=== PATIENT | female | born 1995 | race Caucasian/White ===

== ENCOUNTER → 2016-11-19 | Outpatient (CLI) | payer BC ==
--- NOTE | 2016-11-20 03:59 | REP ---
Clinical: Enlarged thyroid gland by physical examination. Technique: Real time mulligan scale and color evaluation using linear and curved array transducers. Findings: The thyroid gland is diffusely heterogeneous and enlarged without discrete cystic or nodular lesion identified. Right lobe measures 7.2 x 2.7 x 2.9 cm. Left lobe measures 6.2 x 2.4 x 2.3 cm. Isthmus measures 9 mm in width. Impression: Heterogeneous enlarged thyroid gland. No discrete cystic or nodular lesion identified. Signed by Huey Sosa MD 11/20/2016 03:51 A
== END ==
LOC: M RAD 10:22
PROVIDERS: ATTEND Nurse Practitioner Family
DX: E07.9 Disorder of thyroid, unspecified (principal)

== ENCOUNTER → 2016-11-19 | Outpatient (CLI) | payer BC ==
[2016-11-19 12:26] LABS: ALBUMIN 3.2 GM/DL (3.2-5.2); ALBUMIN/GLOBULIN RATIO 0.89 (1.00-1.93); ALKALINE PHOSPHATASE 84 U/L (45-117); ALT/SGPT 18 U/L (12-78); ANION GAP 6 MEQ/L (8-16); AST/SGOT 13 U/L (15-37); BILIRUBIN,TOTAL 0.2 MG/DL (0.2-1.0); BLOOD UREA NITROGEN 12 MG/DL (7-18); CALCIUM LEVEL 8.7 MG/DL (8.5-10.1); CARBON DIOXIDE LEVEL 28 MEQ/L (21-32); CHLORIDE LEVEL 106 MEQ/L (98-107); GLOMERULAR FILTRATION RATE > 60.0 (>60); GLUCOSE, FASTING 77 MG/DL (70-105); POTASSIUM SERUM 3.8 MEQ/L (3.5-5.1); SODIUM LEVEL 140 MEQ/L (136-145); T UPTAKE 24 % (30-39); THYROXINE (T4) 12.8 UG/DL (4.5-12.0); TOTAL PROTEIN 6.8 GM/DL (6.4-8.2)
== END ==
LOC: M LAB 11:14
PROVIDERS: ATTEND Nurse Practitioner Family
DX: E03.9 Hypothyroidism, unspecified (principal); E55.9 Vitamin D deficiency, unspecified

== ENCOUNTER 2017-02-09 19:35 | Emergency (ER) | payer BC, MEDICAID, SELFPAY ==
[~2017-02-09] VITALS: Ht 167.6 cm; Wt 114.6 kg
[2017-02-09] MEDS ORDERED: BENA25CA4 PO (19:47)
[2017-02-09] MEDS ORDERED: FAMOTIDINE 20 MG TAB PO ONE (20:15)
[2017-02-09] MEDS ORDERED: ALBUTEROL 90 MCG/ACT 8GM HFA INHALER INH ONE (20:15)
[2017-02-09] MEDS ORDERED: predniSONE 20 MG TAB PO ONE (20:15)
[2017-02-09] MEDS ORDERED: PRED20TA PO (20:48)
[2017-02-09 20:55] VITALS: BP 141/75
[2017-04-11] MEDS ORDERED: ABIL20TA5 PO (15:45)
== END 2017-02-09 20:55 | disposition home or self-care (01) ==
LOC: M ED 19:35
DX: T62.8X1A Toxic effect of other specified noxious substances eaten as food, accidental (unintentional), initial encounter (principal); E66.9 Obesity, unspecified; F17.210 Nicotine dependence, cigarettes, uncomplicated; Y92.9 Unspecified place or not applicable; Y99.9 Unspecified external cause status; Y93.9 Activity, unspecified; Z91.018 Allergy to other foods

== ENCOUNTER 2017-04-04 10:05 | Inpatient (IN) | payer MEDICAID, SELFPAY ==
[~2017-04-04] VITALS: Ht 162.6 cm; Wt 115.0 kg
[~2017-04-04 10:05] MED LIST: BENA25CA4 PO; PRED20TA PO
[2017-04-04] MEDS ORDERED: SERT-138 PO (10:27)
[2017-04-04] MEDS ORDERED: LEVO125T4 PO (10:27)
[2017-04-04 11:50] LABS: METHADONE URINE NEGATIVE (NEGATIVE)
[2017-04-04 13:10] LABS: MEAN CORPUSCULAR HEMOGLOBIN 30.8 pg (27.0-33.0); MEAN CORPUSCULAR VOLUME 87.8 fl (80.0-96.0); WHITE BLOOD COUNT 8.1 K/mm3 (4.0-10.0)
[2017-04-04 13:12] LABS: CONTROL LINE HCG INT CTR LINE PRESENT
[2017-04-04 13:23] LABS: ALBUMIN 3.8 GM/DL (3.2-5.2); ALBUMIN/GLOBULIN RATIO 1.06 (1.00-1.93); ALKALINE PHOSPHATASE 107 U/L (45-117); ALT/SGPT 25 U/L (12-78); ANION GAP 6 MEQ/L (8-16); AST/SGOT 12 U/L (15-37); BILIRUBIN,DIRECT < 0.1 MG/DL (0.0-0.2); BILIRUBIN,TOTAL 0.3 MG/DL (0.2-1.0); BLOOD UREA NITROGEN 12 MG/DL (7-18); CALCIUM LEVEL 8.9 MG/DL (8.5-10.1); CARBON DIOXIDE LEVEL 26 MEQ/L (21-32); CHLORIDE LEVEL 107 MEQ/L (98-107); CREATININE FOR GFR 0.57 MG/DL (0.55-1.02); GLOMERULAR FILTRATION RATE > 60.0 (>60); GLUCOSE, FASTING 93 MG/DL (70-105); POTASSIUM SERUM 4.2 MEQ/L (3.5-5.1); SODIUM LEVEL 139 MEQ/L (136-145); TOTAL PROTEIN 7.4 GM/DL (6.4-8.2)
[2017-04-04] MEDS ORDERED: TYLE500T78 PO (14:57)
[2017-04-04] MEDS ORDERED: ANTIBIOTIC PO (14:57)
[2017-04-04] MEDS ORDERED: traZODone 50 MG TAB PO PRN (21:45)
[2017-04-04] MEDS ORDERED: MAALOX 30 ML SUSP *UDC PO PRN (21:45)
[2017-04-04] MEDS ORDERED: MOM 30ML SUSPENSION UDC PO PRN (21:45)
[2017-04-05] MEDS: LEVOTHYROXINE 125MCG TABLET (0.125MG) PO SCH (05:57)
[2017-04-05 06:00] VITALS: BP 127/69
--- NOTE | 2017-04-05 11:16 | HPEPDOC ---
[facility] Medical History & Physical Date of Admission Apr 05, 2017 History and Physical PCP: Simba Chavez NP ATTENDING: Dr. Cuong Miles HPI: 21 yo F admitted to [facility] for unspecified bipolar disorder, being medically examined today. No acute medical complaints today. Patient states she had been not taking her medications related to an insurance lapse. She has been off her levothyroxine. Patient states she has had cough. Productive of whitish sputum. No fevers or chills. Denies sore throat. Denies facial pain. Denies any fevers, chills, weakness, fatigue, SOLIS, CP, SOB, cough, palpitations, abdominal pain, N/V/D or changes in bowel or bladder habits. 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 History of Vicodin, Xanax, and Percocet in the past. IV Drug Use: Denies Tattoos done unprofessionally: 1 FAMHX: Mother: Alive, diabetes, depression, hypothyroid Father: Alive, hypertension, chronic pain Siblings: Alive, one sister with gestational diabetes. One brother with Tourette syndrome Children: None Unexpected deaths due to medical reasons: None. ROS: As noted in HPI, otherwise 11pt ROS of systems reviewed and remarkable only for LMP 03/15/17. PE: GEN: 21 yoF, appears stated age. Well-nourished, well developed. No acute distress. Alert and oriented x 3. Pleasant, interactive. HEENT: Normocephalic, atraumatic. Pupils are equal, round, and reactive to light. Extraocular movements are intact. No nystagmus appreciated. Sclera are nonicteric. Conjunctiva without injection. Nose midline. Nasal turbinates without bogginess. EACs both patent BL. TMs both visualized and mulligan with good cone of light, no bulging or erythema. No facial asymmetry. Moist mucous membranes. Dentition fair. Pharynx pink and moist, no cobblestoning. Neck supple , trachea midline. No lymphadenopathy or thyromegaly appreciated. CHEST: Regular rate and rhythm, +S1, +S2 LUNGS: Clear to auscultation bilaterally. Few rhonchi are noted. No wheezes, rales. Breathing appears symmetric and easy. Patient is speaking in full sentences. No accessory muscle use. ABD: Round, soft, non-tender, non-distended. +Bowel sounds throughout. No rebound or guarding. No costovertebral angle tenderness. EXT: Pulses 2+ bilaterally dorsalis pedis and radial. No lower extremity edema appreciated. SKIN: [place], dry, warm. Capillary refill <2sec. No rashes. NEURO: Alert and oriented x 3. Cranial nerves III-XII are intact. No focal deficits appreciated. EKG: Pending A&P: 21 yo F admitted to [facility] for unspecified bipolar disorder 1. Psych. Plan per Psychiatry. Obtain baseline EKG to assure the safety of psychiatric medications as they can prolong the QT interval. 2. Nicotine dependence. Patch available. 3. The thyroid. TSH is noted to be abnormal. Patient should resume levothyroxine 125 g by mouth daily. Recheck TFTs in approximately 4 weeks. 4. Follow up with PCP on discharge. 5. Substance use. Per psychiatry. 6. History of tattoo done unprofessionally. Patient declines HIV/hepatitis screening. 7. History of bronchitis. Patient states recurrent symptoms. Add amoxicillin 500 mg 3 times a day 7 days. Cepacol lozenges needed. Tylenol 650 mg every 6 hours as needed. 8. Staff member Isha HILL present throughout exam. Vital Signs Vital Signs Date Time Temp Pulse Resp B/P (MAP) Pulse Ox O2 Delivery O2 Flow Rate FiO2 04/05/17 06:00 98.3 88 18 127/69 (88) 04/04/17 14:37 98 Room Air Laboratory Data Labs 24H Laboratory Tests 2 04/04/17 12:43: Anion Gap 6L, Glomerular Filtration Rate > 60.0, Calcium Level 8.9, Aspartate Amino Transf (AST/SGOT) 12L, Alanine Aminotransferase (ALT/SGPT) 25, Alkaline Phosphatase 107, Total Bilirubin 0.3, Direct Bilirubin < 0.1, Total Protein 7.4 , Albumin 3.8, Albumin/Globulin Ratio 1.06, Thyroid Stimulating Hormone (TSH) 7.540H, Human Chorionic Gonadotropin, Qual NEGATIVE, Salicylates Level < 1.7L, Acetaminophen Level < 2.0L, Ethyl Alcohol Level < 0.003 CBC/BMP Laboratory Tests 04/04/17 12:43 Red Blood Count 4.37, Mean Corpuscular Volume 87.8, Mean Corpuscular Hemoglobin 30.8, Mean Corpuscular Hemoglobin Concent 35.0, Red Cell Distribution Width 13.0 Home Medications Scheduled Levothyroxine Sodium (Synthroid) 125 Mcg Tab, 125 MCG PO DAILY Sertraline HCl (Sertraline HCl) 100 Mg Tab, 100 MG PO DAILY [Antibiotic] , 1 TAB PO BID PATIENT IS TAKING BROTHER'S ANTIBIOTIC, UNSURE OF WHAT IT IS. Scheduled PRN Acetaminophen (Tylenol Extra Strength) 500 Mg Tab, 1,000 MG PO QID PRN for PAIN Allergies Coded Allergies: [place] (Verified Allergy, Unknown, 02/09/17) Vanna Molina Apr 05, 2017 11:16
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
[2017-04-05] MEDS ORDERED: ARIPiprazole MONOHYDRATE 400 MG INJ (ABILIFY)(J0401) IM ONE (12:00)
[2017-04-05] MEDS: busPIRone 5 MG TAB PO SCH ×2 (12:13→20:55)
[2017-04-05] MEDS: ACETAMINOPHEN TAB 650MG DOSE (2X325MG) PO PRN (12:19)
[2017-04-05] MEDS: AMOXICILLIN 500 MG CAP PO SCH ×2 (13:56→21:29)
[2017-04-05 18:33] VITALS: BP 106/60
[2017-04-05] MEDS: CEPACOL LOZENGE PO PRN ×2 (18:55→20:56)
[2017-04-05] MEDS: traZODone 100 MG TAB PO PRN (20:54)
[2017-04-05] MEDS: DIVALPROEX 250 MG TAB PO SCH (20:54)
[2017-04-05] MEDS: PRAZOSIN 1 MG CAP PO SCH (20:56)
[2017-04-05] MEDS ORDERED: SERTRALINE 100 MG TAB PO SCH (21:00)
[2017-04-06] MEDS: LEVOTHYROXINE 125MCG TABLET (0.125MG) PO SCH (06:10)
[2017-04-06] MEDS: AMOXICILLIN 500 MG CAP PO SCH ×3 (06:10→21:05)
[2017-04-06] MEDS: CEPACOL LOZENGE PO PRN ×4 (06:43→22:37)
[2017-04-06 07:15] VITALS: BP 114/55
--- NOTE | 2017-04-06 08:16 | ECGEPIP ---
Stationary ECG Study [facility] Test Date: 2017-04-05 Pat Name: ADRIANA MELGOZA Department: Room: [place] [address] Gender: F [employer] Supervisor: CHHAYA : 1995 Requested By: Vanna Molina Order Number: [id number] Reading MD: Michael Miranda Measurements Intervals [place] Rate: 79 P: 10 OR: 146 QRS: 28 QRSD: 90 T: 3 QT: 376 QTc: 431 Interpretive Statements Normal sinus rhythm Nonspecific T wave abnormality No significant change when compared to prior tracing of 05/07/2013 Electronically Signed On 04-06-2017 8:16:03 EDT by Michael Miranda
[2017-04-06] MEDS: busPIRone 5 MG TAB PO SCH ×2 (09:01→21:05)
--- NOTE | 2017-04-06 13:41 | IPN ---
DATE: 04/06/2017 The patient states she had wanted to kill herself. She is presently employed at [employer] and states she has "gender identity issues." In addition, it was the anniversary of of two friends and an aunt. The patient states she became emotional and had run of out of medications. She used to be on Zoloft, which helped her depression, but did not help her manic episodes. She also ran out of thyroid medications. She states on Zoloft she was sleepless and off of Zoloft she overslept. MENTAL STATUS EXAMINATION: No disturbance of speech. No thought disorders. No loose associations. No abnormal or psychotic thoughts. Judgment and insight are fair. She is fully oriented. Recent and remote memory intact. Attention and concentration intact. No disturbance of language. Full funded knowledge. Mood is euthymic and affect is congruent. She denies delusions or hallucinations, obsessions, compulsions, phobias. PLAN AT THIS TIME: Continue the patient's present treatment.
[2017-04-06 18:26] VITALS: BP 120/62
[2017-04-06] MEDS: PRAZOSIN 1 MG CAP PO SCH (21:04)
[2017-04-06] MEDS: DIVALPROEX 250 MG TAB PO SCH (21:05)
[2017-04-06] MEDS: traZODone 100 MG TAB PO PRN (22:37)
[2017-04-07] MEDS: LEVOTHYROXINE 125MCG TABLET (0.125MG) PO SCH (06:10)
[2017-04-07] MEDS: AMOXICILLIN 500 MG CAP PO SCH ×3 (06:11→21:58)
[2017-04-07 06:24] VITALS: BP 108/57
[2017-04-07] MEDS: CEPACOL LOZENGE PO PRN ×2 (09:02→22:00)
[2017-04-07] MEDS: busPIRone 5 MG TAB PO SCH ×2 (09:02→21:58)
--- NOTE | 2017-04-07 13:56 | IPN ---
DATE: 04/07/2017 Anastacia Whitney is in a good mood. She is concerned about missing her dogs and her snakes. She is presently waiting with her boyfriend to have a trailer renovated. She was begun on Depakote and BuSpar and prazosin here by Lizzy Pereira. She described how she woke up many times during the night in a panic. I requested her to see how tonight sleeping goes and defer the sleeping difficulties to Ms. Pereira. The patient is presently on Depakote 250 at night, trazodone 100 mg as needed at night for insomnia, prazosin 1 mg at night, BuSpar 15 mg twice a day. MENTAL STATUS EXAMINATION: Speech is normal. No disturbance of thought processes. No loose associations. No psychotic thoughts. Judgment and insight are intact. The patient is fully oriented. Recent and remote memory intact. Attention and concentration are intact. No disturbance of language. Full fund of knowledge. Mood is good. Affect is bright. DIAGNOSES: As per Randall: 1. Bipolar disorder. 2. Posttraumatic stress disorder (PTSD).
[2017-04-07 18:48] VITALS: BP 110/66
[2017-04-07] MEDS: DIVALPROEX 250 MG TAB PO SCH (21:58)
[2017-04-07] MEDS: traZODone 100 MG TAB PO PRN (21:58)
[2017-04-07] MEDS: PRAZOSIN 1 MG CAP PO SCH (21:59)
[2017-04-08] MEDS: LEVOTHYROXINE 125MCG TABLET (0.125MG) PO SCH (05:56)
[2017-04-08] MEDS: AMOXICILLIN 500 MG CAP PO SCH ×3 (05:56→21:49)
[2017-04-08 06:36] VITALS: BP 147/88
[2017-04-08] MEDS: busPIRone 5 MG TAB PO SCH ×2 (08:33→21:49)
--- NOTE | 2017-04-08 11:49 | MHIPNPDOC ---
[facility] Progress Note Progress Note DATE OF SERVICE: 04/08/17 HISTORY: day 5 of admission for bipolar disorder/out of medication VITAL SIGNS: See below. NEW TEST RESULTS: CURRENT MEDICATIONS: See below. MENTAL STATUS EXAMINATION: Patient is a 21-year old female, who is large framed, short dark hair, dressed in personal clothing, good eye contact, cooperative and pleasant Speech: Is clear, spontaneous Language skills are good Thought processes including: goal directed Thought content: appropriate. Abstract reasoning, and computation: good. Description of associations: good. Description of abnormal or psychotic thoughts: . Judgment: fair Insight: limited. Orientation: well oriented in all spheres Recent and remote memory: good. Attention span and concentration: good. Fund of knowledge: Full. Mood: euthymic. Affect: anxious. DIAGNOSES: 1. Bipolar I disorder, current episode depressed, recurrent, moderate with psychotic features. 2. PTSD 3. r/o borderline personality disorder ASSESSMENT:pt is tolerating Maintena injection with some injection site pain. Enc pt to only allow injection to gluteal area in the future. pt is reporting improved mood and less anxiety. She is optimistic about getting on medication and getting insurance back on track. Plans to remain compliant with treatment going forward. Hygiene is good, eating at meal times, no n/v/d/const. Denies akathesia or dystonia. MANAGEMENT PLAN: Family meeting held over weekend as mom has to attend training out of state. pt can return home and resume usual activities. Will plan on discharge tomorrow if follow up appts can be made TIME SPENT: 25 minutes. Vital Signs Vital Signs Date Time Temp Pulse Resp B/P (MAP) Pulse Ox O2 Delivery O2 Flow Rate FiO2 04/08/17 06:36 96.7 104 20 147/88 (107) 04/07/17 06:24 Room Air 04/04/17 14:37 98 Current Medications Current Medications Acetaminophen (Tylenol Tab) 650 mg Q6HP PRN PO HEADACHE or DISCOMFORT Last administered on 04/05/17t 12:19; Start 04/04/17 at 21:45; Stop 05/04/17 at 21: 44 Al Hydrox/Mg Hydrox/Simethicone (Mylanta) 30 ml Q4HP PRN PO HEARTBURN/ INDIGESTION; Start 04/04/17 at 21:45; Stop 05/04/17 at 21:44 Amoxicillin (Amoxicillin) 500 mg Q8H PO Last administered on 04/08/17 05:56; Start 04/05/17 at 14:00; Stop 04/12/17 at 06:01 Buspirone HCl (Buspar) 15 mg BID PO Last administered on 04/08/17 08:33; Start 04/05/17 at 09:00; Stop 05/05/17 at 08:59 Cetylpyridinium Chloride (Cepacol) 1 deneen Q2HP PRN PO cough Last administered on 04/07/17 22:00; Start 04/05/17 at 11:15; Stop 05/05/17 at 11:14 Divalproex Sodium (Depakote) 250 mg QHS PO Last administered on 04/07/17 21:58 ; Start 04/05/17 at 21:00; Stop 05/05/17 at 20:59 Home Med (Med Rec Complete!) ASDIRECTED XX ; Start 04/04/17 at 15:00; Stop at 15:00; Status DC Levothyroxine Sodium (Synthroid) 125 mcg DAILY@06 PO Last administered on 05:56; Start 04/05/17 at 06:00; Stop 05/05/17 at 05:59 Magnesium Hydroxide (Milk Of Magnesia) 30 ml DAILYPRN PRN PO CONSTIPATION; Start 04/04/17 at 21:45; Stop 05/04/17 at 21:44 Prazosin HCl (Minipress) 1 mg QHS PO Last administered on 04/07/17 21:59; Start 04/05/17 at 21:00; Stop 05/05/17 at 20:59 Sertraline HCl (Zoloft) 100 mg QHS PO ; Start 04/05/17 at 21:00; Stop 05/05/17 at 20:59; Status Cancel Trazodone HCl (Desyrel) 50 mg QHSP PRN PO INSOMNIA; Start 04/04/17 at 21:45; Stop 04/05/17 at 11:26; Status DC Trazodone HCl (Desyrel) 100 mg QHSP PRN PO INSOMNIA Last administered on 21:58; Start 04/05/17 at 11:30; Stop 05/05/17 at 11:29 Allergies Coded Allergies: [place] (Verified Allergy, Unknown, 02/09/17) Lizzy Pereira Apr 08, 2017 11:49
[2017-04-08] MEDS: ACETAMINOPHEN TAB 650MG DOSE (2X325MG) PO PRN ×2 (12:41→20:23)
[2017-04-08 18:00] VITALS: BP 139/65
[2017-04-08] MEDS: DIVALPROEX 250 MG TAB PO SCH (21:49)
[2017-04-08 21:51] VITALS: BP 133/84
[2017-04-08] MEDS: PRAZOSIN 1 MG CAP PO SCH (21:51)
[2017-04-09] MEDS: traZODone 100 MG TAB PO PRN
[2017-04-09] MEDS: AMOXICILLIN 500 MG CAP PO SCH (06:06)
[2017-04-09] MEDS: LEVOTHYROXINE 125MCG TABLET (0.125MG) PO SCH (06:06)
[2017-04-09 06:27] VITALS: BP 142/78
[2017-04-09] MEDS: busPIRone 5 MG TAB PO SCH (08:19)
[2017-04-09] MEDS ORDERED: ARIPiprazole 10 MG TAB PO SCH (09:00)
[2017-04-09] MEDS ORDERED: MINI1CAP PO (09:11)
[2017-04-09] MEDS ORDERED: DEPA1TAB3 PO (09:11)
[2017-04-09] MEDS ORDERED: BUSP5TA PO (09:11)
[2017-04-09] MEDS ORDERED: TRAZ10TA PO (09:11)
--- NOTE | 2017-04-09 14:17 | MHDSPDOC ---
[facility] Discharge Summary Discharge Summary DATE OF ADMISSION: Apr 04, 2017 at 14:18 DATE OF DISCHARGE: Apr 09, 2017 at 10:50 DISCHARGE DIAGNOSES: 1. bipolar I disorder, current episode mixed with psychotic features 2. PTSD 3. r/o borderline personality disorder. REASON FOR ADMISSION: SI with plan to overdose on mother's pain medication. no insurance and off her medications. CONSULTANTS INVOLVED: pharmacy, nursing, medicine, psychiatry, lab. TREATMENT AND PROGRESS ON THE UNIT : pt was open to suggestions to improve her mental health status. she readily admitted that impulsivity as been governing her life for several years. She will overspend, become rage-ful when angry and harm herself. Her insurance lapsed and she went off her medication. She was agreeable to a JOEL and was educated on risk and benefits of Abilify Maintena. She was started on the medication in the past -- that is oral abilify and did not find it helpful but took it without side effects. HOSPITAL COURSE: Injection of Maintena given on 04/05 in deltoid. Pt tolerated it well. Some injection site pain. pts mood improved rather quickly once involved with therapeutic milieu. She was visible on the unit and worked on improving herself. She stated she realized a lot of what she is already doing are positive coping skills for her she just was not aware that that is what they are, such as coloring, playing with her dogs, getting exercise. Pt 's nightmares will initially reduced with prazosin at 1 mg but the night prior to discharge they came back so she was discharged on 2 mg of prazosin and told to monitor and report to outpatient provider. Pt was also started on depakote which was increased day of discharge to 500 mg at hs. Level should e done next month to check if therapeutic. it is hoped that this at a low dose along with maintena will control impulsivity. pt ate well, slept well and attended to hygiene well. Family and BF visited and she felt well supported by the staff and peers. DISCHARGE ASSESSMENT: Pt aware Maintena needs 4 months to reach steady plasma state and cautioned to be patient with her progress. She continues to have static noise as auditory hallucinations so Abilify po will be kept on board for several weeks to see if sounds lessen. pt advised to inform outpatient staff to begin processing her prior auth for the Maintena soon so her injections aer not interrupted. Next injection due on 05/05. MENTAL STATUS EXAMINATION ON DISCHARGE: Patient is a 21-year old female, who is large framed, short dark hair, dressed in personal clothing, good eye contact, cooperative and pleasant Speech: Is clear, spontaneous Language skills are good Thought processes including: goal directed Thought content: appropriate. Abstract reasoning, and computation: good. Description of associations: good. Description of abnormal or psychotic thoughts: . Judgment: fair Insight: limited. Orientation: well oriented in all spheres Recent and remote memory: good. Attention span and concentration: good. Fund of knowledge: Full. Mood: euthymic. Affect: anxious. MEDICATIONS ON DISCHARGE: - Abilify for psychotic symptoms - Maintena for bipolar regulation. - Trazodone for sleep -Buspar for anxiety -Prazosin for nightmares -clonidine for anxiety -Depakote for impulse control PLAN/FOLLOWUP ARRANGEMENTS: [facility] for med mgt and therapy, return to work at 04/15. The amount of time spent in the coordination of care for this patient was approximately 30 minutes. Vital Signs/I&Os Vital Signs Date Time Temp Pulse Resp B/P (MAP) Pulse Ox O2 Delivery O2 Flow Rate FiO2 04/09/17 06:27 97.6 68 18 142/78 (99) 04/07/17 06:24 Room Air 04/04/17 14:37 98 Medications Scheduled (Depakote) 500 Mg Tab, 500 MG PO QHS for impulse control for 7 Days, #7 Buspirone HCl (Buspirone HCl) 5 Mg Tab, 15 MG PO BID for ANXIETY for 7 Days, #14 Levothyroxine Sodium (Synthroid) 125 Mcg Tab, 125 MCG PO DAILY, (Reported) Prazosin HCl (Minipress) 1 Mg Cap, 2 MG PO QHS for nightmares for 7 Days, #14 Scheduled PRN Trazodone HCl (Trazodone HCl) 100 Mg Tab, 100 MG PO QHSP PRN for INSOMNIA for 7 Days, #7 Allergies Coded Allergies: [place] (Verified Allergy, Unknown, 02/09/17) Lizzy Pereira Apr 09, 2017 14:17
[2017-04-09] MEDS ORDERED: PRAZOSIN 1 MG CAP PO SCH (21:00)
[2017-04-09] MEDS ORDERED: DIVALPROEX 500 MG TAB PO SCH (21:00)
[2017-04-11] MEDS ORDERED: ABIL20TA5 PO (15:45)
== END 2017-04-09 10:50 | disposition home or self-care (01) | DRG 753 ==
LOC: M ED 10:05 → M ED INP 14:18 → M ED 14:38 → M PSY 14:55
PROVIDERS: ADMIT Psychiatry & Neurology Psychiatry; ATTEND Psychiatry & Neurology Child & Adolescent Psychiatry
DX: F31.60 Bipolar disorder, current episode mixed, unspecified (principal); E03.9 Hypothyroidism, unspecified; F60.3 Borderline personality disorder; F43.10 Post-traumatic stress disorder, unspecified; Z91.010 Allergy to peanuts; F17.200 Nicotine dependence, unspecified, uncomplicated

== ENCOUNTER 2017-11-30 23:28 | Inpatient (IN) | payer MEDICAID, OTHER ==
[2017-12-01 00:20] LABS: HEMATOCRIT 39.5 % (36.0-47.0); MEAN CORPUSCULAR HGB CONC 32.9 g/dl (32.0-36.5); MEAN CORPUSCULAR VOLUME 91.2 fl (80.0-96.0); PLATELET COUNT, AUTOMATED 322 10^3/uL (150-450); RED BLOOD COUNT 4.33 10^6/uL (4.00-5.40); RED CELL DISTRIBUTION WIDTH 13.5 % (11.5-14.5); WHITE BLOOD COUNT 12.3 10^3/uL (4.0-10.0)
[2017-12-01 00:52] LABS: AMPHETAMINES LEVEL URINE NEGATIVE (NEGATIVE); BARBITURATES URINE NEGATIVE (NEGATIVE); BENZODIAZEPINES URINE NEGATIVE (NEGATIVE); CANNABINOIDS URINE POSITIVE (NEGATIVE); COCAINE METABOLITE URINE NEGATIVE (NEGATIVE); METHADONE URINE NEGATIVE (NEGATIVE); OPIATES URINE NEGATIVE (NEGATIVE); PHENCYCLIDINE URINE NEGATIVE (NEGATIVE)
[2017-12-01 00:56] LABS: ALBUMIN 3.9 GM/DL (3.2-5.2); ALBUMIN/GLOBULIN RATIO 1.08 (1.00-1.93); ALKALINE PHOSPHATASE 119 U/L (45-117); ALT/SGPT 27 U/L (12-78); ANION GAP 7 MEQ/L (8-16); AST/SGOT 17 U/L (7-37); BILIRUBIN,DIRECT < 0.1 MG/DL (0.0-0.2); BILIRUBIN,TOTAL 0.2 MG/DL (0.2-1.0); BLOOD UREA NITROGEN 17 MG/DL (7-18); CALCIUM LEVEL 8.8 MG/DL (8.5-10.1); CARBON DIOXIDE LEVEL 26 MEQ/L (21-32); CHLORIDE LEVEL 109 MEQ/L (98-107); CREATININE FOR GFR 0.77 MG/DL (0.55-1.30); ETHYL ALCOHOL (ETHANOL) < 0.003 % (0.000-0.010); GLOMERULAR FILTRATION RATE > 60.0 (>60); GLUCOSE, FASTING 97 MG/DL (70-100); POTASSIUM SERUM 3.7 MEQ/L (3.5-5.1); SALICYLATE LEVEL 2.6 MG/DL (5.0-30.0); SODIUM LEVEL 142 MEQ/L (136-145); TOTAL PROTEIN 7.5 GM/DL (6.4-8.2)
[2017-12-01 01:00] LABS: ACETAMINOPHEN LEVEL < 2.0 UG/ML (10.0-30.0)
[2017-12-01] MEDS ORDERED: MAALOX 30 ML SUSP *UDC PO (01:15)
[2017-12-01] MEDS ORDERED: PILL CRUSHER/CUTTER 1 EACH XX (02:00)
[2017-12-01] MEDS: PRAZOSIN 1 MG CAP PO (21:52)
[2017-12-02] MEDS: LEVOTHYROXINE 125MCG TABLET (0.125MG) PO (06:19)
[2017-12-02] MEDS: MOM 30ML SUSPENSION UDC PO (11:37)
[2017-12-02] MEDS: ACETAMINOPHEN TAB 650MG DOSE (2X325MG) PO (14:52)
[2017-12-02] MEDS: PALIPERIDONE 3 MG ER TAB (INVEGA) PO (22:01)
[2017-12-02] MEDS: traZODone 50 MG TAB PO (23:03)
[2017-12-03] MEDS: OLANZapine ORAL DISINTEGRATING TAB 5MG PO ×2 (00:22→10:20)
[2017-12-03] MEDS: ACETAMINOPHEN TAB 650MG DOSE (2X325MG) PO ×2 (00:24→08:42)
[2017-12-03] MEDS: LEVOTHYROXINE 125MCG TABLET (0.125MG) PO (06:19)
[2017-12-03] MEDS: PALIPERIDONE 3 MG ER TAB (INVEGA) PO (08:42)
[2017-12-03] MEDS: PALIPERIDONE 6 MG ER TAB (INVEGA) PO (21:03)
[2017-12-03] MEDS: traZODone 50 MG TAB PO (23:04)
[2017-12-04] MEDS: LEVOTHYROXINE 125MCG TABLET (0.125MG) PO (05:45)
[2017-12-04] MEDS: PALIPERIDONE 6 MG ER TAB (INVEGA) PO ×2 (08:36→21:18)
[2017-12-04] MEDS: OLANZapine ORAL DISINTEGRATING TAB 5MG PO (15:48)
[2017-12-04] MEDS: traZODone 50 MG TAB PO (23:03)
[2017-12-05] MEDS: LEVOTHYROXINE 125MCG TABLET (0.125MG) PO (05:48)
[2017-12-05] MEDS: PALIPERIDONE 6 MG ER TAB (INVEGA) PO (08:28)
[2017-12-05] MEDS: PALIPERIDONE PALMITATE 156 MG/1ML INJ(INVEGA SUSTENNA)(J2426) IM (13:40)
== END 2017-12-05 15:48 | disposition home or self-care (01) | DRG 882 ==
LOC: M ED 23:28 → M ED INP 12-01 01:10 → M PSY 12-01 01:43
DX: F43.10 Post-traumatic stress disorder, unspecified (principal); F33.2 Major depressive disorder, recurrent severe without psychotic features; F41.1 Generalized anxiety disorder; F60.3 Borderline personality disorder; F48.1 Depersonalization-derealization syndrome; Z91.010 Allergy to peanuts; E03.9 Hypothyroidism, unspecified; F17.210 Nicotine dependence, cigarettes, uncomplicated; Z62.810 Personal history of physical and sexual abuse in childhood

== ENCOUNTER → 2018-06-03 | Outpatient (CLI) | payer BC ==
[2018-06-03 10:10] LABS: HCG, SERUM QUANTITATIVE 4127 MIU/ML
== END ==
LOC: M LAB 08:19
DX: Z34.81 Encounter for supervision of other normal pregnancy, first trimester (principal)
CPT/HCPCS: 84702

== ENCOUNTER → 2018-06-25 | Outpatient (CLI) | payer BC ==
[2018-06-25 19:23] LABS: BASO % 0.5 % (0.0-1.0); EOS # 0.1 10^3/uL (0.0-0.50); HEMATOCRIT 37.6 % (36.0-47.0); HEMOGLOBIN 12.4 g/dl (12.0-15.5); IMMATURE GRANULOCYTE % 0.3 % (0-3.0); LYMPH # 1.7 10^3/uL (1.5-6.5); LYMPH % 26.6 % (24.0-44.0); MONO # 0.5 10^3/uL (0.0-0.8); MONO % 7.2 % (0.0-5.0); NEUTROPHILS # 4.1 10^3/uL (1.8-7.7); NEUTROPHILS % 64.4 % (36.0-66.0); PLATELET COUNT, AUTOMATED 256 10^3/uL (150-450); RED CELL DISTRIBUTION WIDTH 12.5 % (11.5-14.5); WHITE BLOOD COUNT 6.3 10^3/uL (4.0-10.0)
[2018-06-25 20:24] LABS: CHLAMYDIA DNA AMPLIFICATION NEGATIVE (NEGATIVE); GC DNA AMPLIFICATION NEGATIVE (NEGATIVE)
[2018-06-27 12:47] LABS: HEPATITIS C VIRUS ABY INDEX 0.1 INDEX (<0.8)
[2018-06-27 12:47] LABS: HBsAg Prenatal NEGATIVE (NEGATIVE); HIV 1&2 SCREEN CENTAUR NEGATIVE (NEGATIVE); RUBELLA IgG QUALITATIVE IMMUNE (IMMUNE)
== END ==
LOC: M SMT 14:23
DX: Z36.89 Encounter for other specified antenatal screening (principal)
CPT/HCPCS: 86762

== ENCOUNTER → 2018-07-23 | Outpatient (CLI) | payer BC ==
[~2018-07-23] MED LIST changes: +ABIL20TA5 PO; +ANTIBIOTIC PO; +BUSP5TA PO; +DEPA1TAB3 PO; +INVE156I IM; +LEVO125T4 PO; +MINI1CAP PO; +PALI1TAB3 PO; +SERT-138 PO; +TRAZ10TA PO; +TRAZO50TA PO; +TYLE500T78 PO
== END ==
LOC: M SMT 15:44
PROVIDERS: ATTEND Advanced Practice Midwife
DX: Z34.81 Encounter for supervision of other normal pregnancy, first trimester (principal)

== ENCOUNTER → 2018-07-30 | Outpatient (REF) | payer BC | LOC: M LAB REF 16:13 | PROVIDERS: ATTEND Physician Assistant | DX: J09.X2 Influenza due to identified novel influenza A virus with other respiratory manifestations (principal) ==

== ENCOUNTER → 2018-08-27 | Outpatient (CLI) | payer MEDICAID ==
[2018-08-27 18:34] LABS: FREE T4 1.2 NG/DL (0.76-1.46); THYROID STIMULATING HORMONE 3.16 uIU/ML (0.358-3.740)
== END ==
LOC: M SMT 10:07
PROVIDERS: ATTEND Advanced Practice Midwife
DX: Z34.82 Encounter for supervision of other normal pregnancy, second trimester (principal); Z36.89 Encounter for other specified antenatal screening

== ENCOUNTER → 2018-09-15 | Outpatient (CLI) | payer BC ==
--- NOTE | 2018-09-15 19:48 | REP ---
Clinical: Anatomical evaluation. Comparison: None . Findings: Examination demonstrates a single live intrauterine in cephalic presentation. motion is identified by technologist. Placenta is noted posterior and grade grade zero without evidence for placenta previa or abruption. Amniotic fluid volume is normal. Cervix measures 3.7 cm in length and appears closed. No evidence for nuchal cord. Gestational age by LMP 20 weeks 3 days with GILBERT 01/30/2019 . Gestational age by current measurements 20 weeks 2 days with GILBERT 01/31/2019 . FHR equals 169 beats per minute. BPD 4.8 cm 20 weeks 4 days HC 18.1 cm 20 weeks 4-day AC 15.2 cm 20 weeks 3 days FL 3.4 cm 20 weeks 5 days HL 3.3 cm 21 weeks 1 day HC/AC ratio 1.19 Estimated weight 360 grams ( 51st percentile). Anatomical assessment demonstrates normal structures including cranium, choroid plexus, cavum, cerebellum/posterior fossa, facial features, lungs, four-chamber heart/ventricular outflow tracts, diaphragm, stomach, cord insertion/three-vessel cord, kidneys/bladder, spine, and extremities. Impression: Single live intrauterine in cephalic presentation demonstrating appropriate interval growth. 2. Anatomical assessment is complete and normal. No gross abnormalities are identified. Electronically Signed by Huey Sosa MD 09/15/2018 07:39 P
== END ==
LOC: M RAD 11:18
PROVIDERS: ATTEND Advanced Practice Midwife
DX: Z34.82 Encounter for supervision of other normal pregnancy, second trimester (principal); Z3A.20 20 weeks gestation of pregnancy

== ENCOUNTER → 2018-10-28 | Outpatient (CLI) | payer MEDICAID ==
[2018-10-28 20:01] LABS: THYROID STIMULATING HORMONE 0.689 uIU/ML (0.358-3.740)
[2018-10-28 20:37] LABS: HEMOGLOBIN 11.3 g/dl (12.0-15.5); MEAN CORPUSCULAR HEMOGLOBIN 31.7 pg (27.0-33.0); MEAN CORPUSCULAR HGB CONC 33.2 g/dl (32.0-36.5); MEAN CORPUSCULAR VOLUME 95.5 fl (80.0-96.0); PLATELET COUNT, AUTOMATED 278 10^3/uL (150-450); RED BLOOD COUNT 3.56 10^6/uL (4.00-5.40); WHITE BLOOD COUNT 10.3 10^3/uL (4.0-10.0)
== END ==
LOC: M LABDRWAD 16:44
PROVIDERS: ATTEND Advanced Practice Midwife
DX: O99.282 Endocrine, nutritional and metabolic diseases complicating pregnancy, second trimester (principal); Z3A.00 Weeks of gestation of pregnancy not specified

== ENCOUNTER → 2018-11-14 | Outpatient (CLI) | payer OTHER | LOC: M LAB 07:41 | PROVIDERS: ATTEND Advanced Practice Midwife | DX: O99.282 Endocrine, nutritional and metabolic diseases complicating pregnancy, second trimester (principal); Z3A.00 Weeks of gestation of pregnancy not specified ==

== ENCOUNTER 2019-02-03 04:54 | Inpatient (IN) | payer OTHER ==
[~2019-02-03] VITALS: Ht 162.6 cm; Wt 114.0 kg
[2019-02-03] VITALS (26 sets, daily range): BP systolic 90–143; BP diastolic 50–90
[~2019-02-03 04:54] MED LIST changes: +TRAZ1TAB10 PO; -TRAZO50TA PO
[2019-02-03] MEDS ORDERED: LACTATED RINGER'S 1000 ML IV STA (06:25)
[2019-02-03] MEDS ORDERED: PENICILLIN G POTASSIUM IV 5 MU in D5W MINI-BAG PLUS 100 ML IV STA (06:25)
[2019-02-03 06:41] LABS: HEMATOCRIT 36.9 % (36.0-47.0); HEMOGLOBIN 12.6 g/dl (12.0-15.5); MEAN CORPUSCULAR HGB CONC 34.1 g/dl (32.0-36.5); MEAN CORPUSCULAR VOLUME 96.6 fl (80.0-96.0); PLATELET COUNT, AUTOMATED 191 10^3/uL (150-450); RED BLOOD COUNT 3.82 10^6/uL (4.00-5.40); WHITE BLOOD COUNT 13.2 10^3/uL (4.0-10.0)
[2019-02-03] MEDS ORDERED: FENTANYL 2MCG/ML ROPIVACAINE 0.2% IN 0.9% NACL 100ML IVBAG As Ordered ONE (08:15)
[2019-02-03] MEDS ORDERED: ONDANSETRON 4MG/2ML VIAL (J2405) As Ordered ONE (08:36)
[2019-02-03] MEDS ORDERED: REFRIGERATOR IV KEYS XX PRN (09:30)
[2019-02-03] MEDS ORDERED: EPIDURAL COMMENT XX SCH (09:30)
[2019-02-03] MEDS ORDERED: NALOXONE INJ 0.4 MG/1 ML VIAL (J2310) IV PRN (09:30)
[2019-02-03] MEDS ORDERED: EPIDURAL/PCA KEYS XX PRN (09:30)
[2019-02-03] MEDS ORDERED: diphenhydrAMINE INJ 50MG/ML VIAL (J1200) IV PRN (09:30)
[2019-02-03] MEDS ORDERED: ePHEDrine SULFATE 25 MG/5 ML(5MG/ML) SYRINGE IV PRN (09:30)
[2019-02-03] MEDS ORDERED: FENTANYL/ROPIVACAINE/NACL BAG 100 ML EPIDURAL SCH (09:30)
[2019-02-03] MEDS ORDERED: ONDANSETRON 4MG/2ML VIAL (J2405) IV PRN (09:30)
[2019-02-03] MEDS ORDERED: CALCIUM CARBONATE 500 MG CHEW U/D PO PRN (11:15)
[2019-02-03] MEDS ORDERED: PRENTAB9 PO (11:25)
[2019-02-03] MEDS ORDERED: LEVO112T2 PO (11:25)
[2019-02-03] MEDS ORDERED: LR 1,000 ML IV SCH (11:30)
[2019-02-03] MEDS ORDERED: PENICILLIN G POTASSIUM IV 2.5 MU in APPROPRIATE DILUENT 1 EA IV SCH (12:00)
--- NOTE | 2019-02-03 12:42 | HPE ---
DATE OF ADMISSION: 02/03/2019 REASON FOR ADMISSION: Labor. HISTORY OF PRESENT ILLNESS: Ms. Whitney is a 23-year-old 1 who presents at 40 weeks 4 days estimated gestational age by first trimester ultrasound with complaints of contractions. Her contractions increased in frequency and intensity. She denies any vaginal bleeding or leakage of fluid. Her course has been unremarkable. She initiated care in her first trimester and has been appropriate throughout. PAST MEDICAL HISTORY: 1. History of hypothyroidism. 2. Bipolar disorder. PAST SURGICAL HISTORY: She has had tonsillectomy, adenoidectomy. MEDICATIONS: Includes: - vitamins daily - levothyroxine ALLERGIES: LATEX. OBSTETRICAL HISTORY: She is 1. SOCIAL HISTORY: Denies any alcohol, tobacco or drug use during . She is a former smoker. PHYSICAL EXAMINATION: VITAL SIGNS: Stable. She is afebrile. GENERAL APPEARANCE: Well appearing, no acute distress. She has category 1 heart rate tracing with contractions on tocometer. Lungs are clear to auscultation bilaterally. Cardiovascular: Heart regular rate and rhythm. Abdomen is gravid, nontender. Estimated weight 3700 grams. Cervical exam: She was 3-4 cm dilated, 90% effaced, -2 station. LABS: Blood type is A positive. Antibody screen is negative. Rubella is immune. RPR is nonreactive. Chlamydia and gonorrhea screens were negative. Hepatitis surface antigen was negative. HIV was negative. Rubella is immune. RPR is nonreactive. She had an elevated 1-hour Glucola with a normal 3-hour glucose tolerance test. She is Group B Streptococcus (GBS) positive. ASSESSMENT: 1. Ms. Whitney is a 23-year-old 1 at 40 weeks 3 days estimated gestational age here in active labor. 2. Reassuring status. 3. GBS positive. PLAN: 1. Admit to Labor delivery CBC, RPR, type and screen. 2. Antibiotics for GBS prophylaxis. 3. Patient is a good candidate for epidural. 4. Anticipate spontaneous vaginal delivery.
[2019-02-03] MEDS ORDERED: OXYTOCIN 30 UNITS IN 0.9% NaCl 500ML IV BAG (J2590) As Ordered ONE (13:05)
[2019-02-03] MEDS ORDERED: OXYTOCIN DRIP 30 UNITS in APPROPRIATE DILUENT 1 EA IV SCH (13:56)
[2019-02-03] MEDS ORDERED: MOM 30ML SUSPENSION UDC PO PRN (14:00)
[2019-02-03] MEDS ORDERED: IBUPROFEN 800 MG TAB PO PRN (14:00)
[2019-02-03] MEDS ORDERED: RHOGAM 300 MCG (1500 IU) INJ (J2790) IM SCH (14:00)
[2019-02-03] MEDS ORDERED: IBUPROFEN 600 MG TAB PO PRN (14:00)
[2019-02-03] MEDS ORDERED: ACETAMINOPHEN 500 MG TAB PO PRN (14:00)
[2019-02-03] MEDS ORDERED: DIBUCAINE 1% OINTMENT 30GM TOP PRN (14:00)
[2019-02-03] MEDS ORDERED: ACETAMINOPHEN TAB 650MG DOSE (2X325MG) PO PRN (14:00)
[2019-02-03] MEDS ORDERED: METHYLERGONOVINE MALEATE 0.2 MG TAB PO PRN (14:00)
[2019-02-03] MEDS ORDERED: DOCUSATE SODIUM 100 MG CAP PO PRN (14:00)
[2019-02-03] MEDS ORDERED: MEASLES,MUMPS,RUBELLA VACCINE INJ (MMR-II) (90707) SC SCH (14:00)
--- NOTE | 2019-02-03 14:18 | DN ---
DATE OF DELIVERY: 02/03/2019 TIME OF : 1334 hours GENDER: Male SCORES: 8 and 9. WEIGHT: 3450 grams or 7 pounds 10 ounces. ANESTHESIA: Epidural. LACERATIONS: None. ESTIMATED BLOOD LOSS: 400 mL. COUNTS: Five laparotomy sponges were accounted for prior to after delivery. DELIVERY NOTE: On February 03, 2019 at 1334 hours, Ms. Whitney, a 23-year-old 1, now para 1, had a spontaneous vaginal delivery of a liveborn male infant, scores 8 ad 9, weight was 3450 grams or 7 pounds 10 ounces. Head was delivered OA over intact perineum. There was a nuchal cord which was manually reduced followed by delivery of shoulders and corpus. Infant was handed to mom with a good cry. Cord was clamped times two and was cut by support person under my direction. Placenta was then drained and delivered grossly intact. A premixed bag of 500 mL of normal saline with 30 units of Pitocin was bolused along with uterine massage until the uterus was firm. On inspection the cervix, vagina and perineum was grossly intact and hemostatic. Mom and baby recovering in stable condition.
[2019-02-04 06:00] VITALS: BP 121/60
--- NOTE | 2019-02-04 07:26 | NUR ---
PPD#1 S: Doing well w/o complaints. + voids, + ambulation. O: vss, AF gen: well appearing abd: nttp, FF ext: neg calf tenderness A/P: PPD#1 s/p - recovering in stable condition -cont routine care -d/c plans for tomorrow Ingrid Vallecillo MD
[2019-02-04] MEDS: PRENATAL VITAMINS CHEWABLE TABLET PO SCH (08:15)
[2019-02-04] MEDS: LEVOTHYROXINE 112MCG TABLET (0.112MG) PO SCH (08:38)
[2019-02-04 18:00] VITALS: BP 103/55
[2019-02-05] MEDS: LEVOTHYROXINE 112MCG TABLET (0.112MG) PO SCH (04:53)
[2019-02-05 05:51] VITALS: BP 119/65
[2019-02-05] MEDS ORDERED: medroxyPROGESTERone ACET IM SUSP 150 MG/ML VIAL (J1050) IM ONE (09:00)
[2019-02-05] MEDS: PRENATAL VITAMINS CHEWABLE TABLET PO SCH (09:02)
== END 2019-02-05 13:20 | disposition home or self-care (01) | DRG 560 ==
LOC: M LDO 04:54 → M LDI 05:49 → M OBS 16:12
PROVIDERS: ADMIT Advanced Practice Midwife; ATTEND Obstetrics & Gynecology
PROC: 10E0XZZ Delivery of Products of Conception, External Approach (ICD-10-PCS; principal; 2019-02-03)
DX: O48.0 Post-term pregnancy (principal); O99.824 Streptococcus B carrier state complicating childbirth; Z3A.40 40 weeks gestation of pregnancy; Z37.0 Single live birth; O69.81X0 Labor and delivery complicated by cord around neck, without compression, not applicable or unspecified

== ENCOUNTER → 2019-04-16 | Outpatient (REF) | payer OTHER ==
[~2019-04-16] MED LIST changes: +LEVO112T2 PO; +PRENTAB9 PO
== END ==
LOC: M LAB REF 15:52
PROVIDERS: ATTEND Surgery
DX: D48.5 Neoplasm of uncertain behavior of skin (principal)

== ENCOUNTER → 2019-06-29 | Outpatient (REF) | payer OTHER | LOC: M SFHCWAGY 11:11 | PROVIDERS: ATTEND Advanced Practice Midwife | DX: Z01.419 Encounter for gynecological examination (general) (routine) without abnormal findings (principal) ==

== ENCOUNTER → 2019-11-02 | Outpatient (REF) | payer OTHER, MEDICAID ==
[~2019-11-02] MED LIST changes: -TRAZ10TA PO; +TRAZ1TAB12 PO
[2019-11-02 19:34] LABS: THYROID STIMULATING HORMONE 4.07 uIU/ML (0.358-3.740)
== END ==
LOC: M LAB REF 18:14
PROVIDERS: ATTEND Nurse Practitioner Adult Health
DX: E07.9 Disorder of thyroid, unspecified (principal)

== ENCOUNTER → 2019-11-11 | Outpatient (REF) | payer OTHER, MEDICAID ==
[2019-11-11 17:33] LABS: BASO # 0.1 10^3/uL (0.0-0.2); EOS # 0.2 10^3/uL (0.0-0.5); EOS % 3.3 % (0.0-3.0); HEMATOCRIT 42.3 % (36.0-47.0); HEMOGLOBIN 14.2 g/dl (12.0-15.5); LYMPH # 2.4 10^3/uL (1.5-5.0); LYMPH % 35.2 % (24.0-44.0); MEAN CORPUSCULAR HEMOGLOBIN 30.9 pg (27.0-33.0); MEAN CORPUSCULAR HGB CONC 33.6 g/dl (32.0-36.5); MEAN CORPUSCULAR VOLUME 92.2 fl (80.0-96.0); MONO # 0.6 10^3/uL (0.0-0.8); MONO % 9.2 % (0.0-5.0); NEUTROPHILS # 3.4 10^3/uL (1.5-8.5); PLATELET COUNT, AUTOMATED 292 10^3/uL (150-450); RED BLOOD COUNT 4.59 10^6/uL (4.00-5.40); WHITE BLOOD COUNT 6.7 10^3/uL (4.0-10.0)
[2019-11-11 17:45] LABS: ALBUMIN 3.9 GM/DL (3.2-5.2); ALT/SGPT 29 U/L (12-78); BILIRUBIN,TOTAL 0.6 MG/DL (0.2-1.0); BLOOD UREA NITROGEN 10 MG/DL (7-18); CARBON DIOXIDE LEVEL 27 MEQ/L (21-32); CHLORIDE LEVEL 106 MEQ/L (98-107); CHOLESTEROL LEVEL 199 MG/DL (<200); CHOLESTEROL RISK RATIO 5.102 (<5); CREATININE FOR GFR 0.72 MG/DL (0.55-1.30); GLOMERULAR FILTRATION RATE > 60.0 (>60); GLUCOSE, FASTING 66 MG/DL (70-100); HDL CHOLESTEROL 39 MG/DL (>40); LDL CHOLESTEROL 118 MG/DL (<100); NON-HDL-C 160 MG/DL; POTASSIUM SERUM 3.6 MEQ/L (3.5-5.1); SODIUM LEVEL 140 MEQ/L (136-145); TOTAL PROTEIN 7.5 GM/DL (6.4-8.2); TRIGLYCERIDES LEVEL 209 MG/DL (<150)
[2019-11-11 17:47] LABS: ESTRADIOL 35.6 PG/ML; TESTOSTERONE 33 NG/DL (14-76)
[2019-11-12 04:40] LABS: HEMOGLOBIN A1c 5.1 %
== END ==
LOC: M LAB REF 16:54
PROVIDERS: ATTEND Nurse Practitioner Adult Health
DX: F64.0 Transsexualism (principal)

== ENCOUNTER → 2019-12-17 | Outpatient (CLI) | payer OTHER, MEDICAID ==
[2019-12-17 18:50] LABS: CHLAMYDIA DNA AMPLIFICATION POSITIVE (NEGATIVE); GC DNA AMPLIFICATION NEGATIVE (NEGATIVE)
[2019-12-18 10:13] LABS: HIV 1&2 SCREEN CENTAUR NEGATIVE (NEGATIVE)
[2019-12-21 15:13] LABS: HSV-1 DNA Negative (Negative); HSV-2 DNA Negative (Negative)
== END ==
LOC: M WUC 13:01
PROVIDERS: ATTEND Physician Assistant
DX: R10.30 Lower abdominal pain, unspecified (principal); Z11.3 Encounter for screening for infections with a predominantly sexual mode of transmission

== ENCOUNTER → 2020-01-14 | Outpatient (REF) | payer OTHER, MEDICAID ==
[2020-01-15 14:34] LABS: CHLAMYDIA DNA AMPLIFICATION NEGATIVE (NEGATIVE); GC DNA AMPLIFICATION NEGATIVE (NEGATIVE)
== END ==
LOC: M LAB REF 15:52
PROVIDERS: ATTEND Physician Assistant
DX: Z11.3 Encounter for screening for infections with a predominantly sexual mode of transmission (principal); R39.15 Urgency of urination

== ENCOUNTER → 2020-02-03 | Outpatient (REF) | payer OTHER, MEDICAID ==
[2020-02-03 19:34] LABS: BASO # 0.1 10^3/uL (0.0-0.2); BASO % 1.4 % (0.0-1.0); EOS # 0.2 10^3/uL (0.0-0.5); EOS % 3.6 % (0.0-3.0); HEMATOCRIT 45.8 % (36.0-47.0); HEMOGLOBIN 14.8 g/dl (12.0-15.5); MEAN CORPUSCULAR HGB CONC 32.3 g/dl (32.0-36.5); MEAN CORPUSCULAR VOLUME 92.9 fl (80.0-96.0); MONO # 0.5 10^3/uL (0.0-0.8); MONO % 11.5 % (0.0-5.0); NEUTROPHILS # 1.7 10^3/uL (1.5-8.5); NEUTROPHILS % 38.3 % (36.0-66.0); PLATELET COUNT, AUTOMATED 267 10^3/uL (150-450); RED BLOOD COUNT 4.93 10^6/uL (4.00-5.40); WHITE BLOOD COUNT 4.4 10^3/uL (4.0-10.0)
[2020-02-03 20:00] LABS: ALBUMIN 3.8 GM/DL (3.2-5.2); ALT/SGPT 32 U/L (12-78); BILIRUBIN,TOTAL 0.4 MG/DL (0.2-1.0); BLOOD UREA NITROGEN 11 MG/DL (7-18); CALCIUM LEVEL 8.9 MG/DL (8.5-10.1); CARBON DIOXIDE LEVEL 27 MEQ/L (21-32); CHLORIDE LEVEL 109 MEQ/L (98-107); CREATININE FOR GFR 0.83 MG/DL (0.55-1.30); GLOMERULAR FILTRATION RATE > 60.0 (>60); GLUCOSE, FASTING 79 MG/DL (70-100); POTASSIUM SERUM 4.4 MEQ/L (3.5-5.1); SODIUM LEVEL 141 MEQ/L (136-145); TOTAL PROTEIN 7.2 GM/DL (6.4-8.2)
[2020-02-03 21:07] LABS: TESTOSTERONE 384 NG/DL (14-76)
== END ==
LOC: M LAB REF 17:13
PROVIDERS: ATTEND Nurse Practitioner Adult Health
DX: Z79.890 Hormone replacement therapy (principal)

== ENCOUNTER → 2020-06-22 | Outpatient (REF) | payer OTHER, MEDICAID ==
[2020-06-24 10:49] LABS: CHLAMYDIA DNA AMPLIFICATION NEGATIVE (NEGATIVE); GC DNA AMPLIFICATION NEGATIVE (NEGATIVE)
== END ==
LOC: M SFHCWAGY 17:10
PROVIDERS: ATTEND Obstetrics & Gynecology
DX: Z11.3 Encounter for screening for infections with a predominantly sexual mode of transmission (principal)

== ENCOUNTER → 2020-06-28 | Outpatient (CLI) | payer OTHER ==
--- NOTE | 2020-06-28 16:14 | REP ---
INDICATION: N93.9 AUB. COMPARISON: None. TECHNIQUE: Transabdominal scanning performed. The patient declined endovaginal ultrasound. FINDINGS: Uterine dimensions are 7.4 x 4.7 x 7.0 cm. Endometrial echo is 8 mm in AP dimension and centrally placed. The bladder measures 5.9 x 5.8 x 8.1 cm. The right ovary has dimensions of 3.5 x 1.9 x 1.6 cm. It's Doppler flow is normal with a resistive index of 0.34. The left ovary dimensions are 3.1 x 1.9 x 2.2 cm. It's Doppler flow was normal with resistive index of 0.47. There is no adnexal mass identified. No free fluid is seen in the cul-de-sac. IMPRESSION: Negative pelvic ultrasound. <Electronically signed by Ashu Duff > 06/28/20 0160
== END ==
LOC: M WHC 14:32
PROVIDERS: ATTEND Obstetrics & Gynecology
DX: N93.9 Abnormal uterine and vaginal bleeding, unspecified (principal)

== ENCOUNTER → 2020-07-18 | Outpatient (REF) | payer OTHER ==
[~2020-07-18] MED LIST changes: +DEPO150I IM; +TEST200I14 IM
[2020-07-18 17:37] LABS: BASO # 0.1 10^3/uL (0.0-0.2); EOS # 0.2 10^3/uL (0.0-0.5); EOS % 3.3 % (0.0-3.0); HEMATOCRIT 47.1 % (36.0-47.0); HEMOGLOBIN 15.9 g/dl (12.0-15.5); LYMPH # 2.3 10^3/uL (1.5-5.0); LYMPH % 37.9 % (24.0-44.0); MEAN CORPUSCULAR HEMOGLOBIN 31.4 pg (27.0-33.0); MEAN CORPUSCULAR HGB CONC 33.8 g/dl (32.0-36.5); MEAN CORPUSCULAR VOLUME 92.9 fl (80.0-96.0); MONO # 0.6 10^3/uL (0.0-0.8); MONO % 9.5 % (0.0-5.0); NEUTROPHILS # 2.9 10^3/uL (1.5-8.5); PLATELET COUNT, AUTOMATED 274 10^3/uL (150-450); RED BLOOD COUNT 5.07 10^6/uL (4.00-5.40); WHITE BLOOD COUNT 6.1 10^3/uL (4.0-10.0)
[2020-07-18 18:04] LABS: ALBUMIN 4.4 GM/DL (3.2-5.2); ALT/SGPT 38 U/L (12-78); BILIRUBIN,TOTAL 0.4 MG/DL (0.2-1.0); BLOOD UREA NITROGEN 12 MG/DL (7-18); CARBON DIOXIDE LEVEL 27 MEQ/L (21-32); CHLORIDE LEVEL 109 MEQ/L (98-107); CREATININE FOR GFR 0.84 MG/DL (0.55-1.30); GLOMERULAR FILTRATION RATE > 60.0 (>60); GLUCOSE, FASTING 76 MG/DL (70-100); POTASSIUM SERUM 4.5 MEQ/L (3.5-5.1); SODIUM LEVEL 139 MEQ/L (136-145); TOTAL PROTEIN 7.5 GM/DL (6.4-8.2)
== END ==
LOC: M LAB REF 16:35
PROVIDERS: ATTEND Physician Assistant
DX: Z01.818 Encounter for other preprocedural examination (principal)

== ENCOUNTER → 2020-07-22 | Outpatient (CLI) | payer OTHER, MEDICAID | LOC: M LABSMTC 13:38 | PROVIDERS: ATTEND Anesthesiology | DX: Z01.812 Encounter for preprocedural laboratory examination (principal); Z20.822 Contact with and (suspected) exposure to COVID-19 ==

== ENCOUNTER 2020-07-27 10:23 | Day surgery (SDC) | payer OTHER ==
[~2020-07-27] VITALS: Ht 162.6 cm; Wt 103.7 kg
[~2020-07-27 10:23] MED LIST changes: +LIDOCAINE 1% MDV 20ML VIAL SQ PRN; +LR 1,000 ML IV ONE; +ceFAZolin SOD 2 GM in IV 1 EA IV ONE
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
--- OUTSIDE RECORDS SUMMARY | 2020-07-27 10:27 | CCD ---
Author Organization Unknown Address [address] [place] [address] Phone [phone] Care Team Providers Care Manufacturing Applications Engineer Name Role Phone Dilcia Dunn Unavailable Unavailable [...] Not yadiel ilable testosterone cypionate 200 mg/mL intramuscular oil Active Not available Problems Name Status Onset [...] 05/17/2020 Test, Urine Urine Hcg negative Main [facility]: [address] [place] [address] Past Encounters 06/21/2020 Moderate Recurrent Major Depression; Chronic Post-traumatic Stress Disorder; Generalized Anxiety Disorder Darling TrianaSEJALW-R: [address] [facility] [address], [place] [address], Ph. 06/06/2020 Moderate Recurrent Major Depression; Chronic Post-traumatic Stress Disorder; Generalized Anxiety Disorder; Gender Dysphoria in Adolescence and Adulthood Darling TrianaSEJALW-R: [address] [facility], [facility] [address], [place] [address], Ph. 05/23/2020 Gender Dysphoria in Adolescence and Adulthood; Moderate Recurrent Major Depression; Generalized Anxiety Disorder Darling TrianaSEJALW-R: [address] [facility] [address], [place] [address], Ph. 05/17/2020 Contraception Using Injectable Contraceptive Medication; Contraception Care Management AJAY ValdesBC: [address] [place] [phone], Ph. 05/11/2020 Hormone Replacement Therapy; Pruritus of Vagina AJAY ValdesBC: [address] [place] [phone], Ph. Social History Tobacco Smoking Status Heavy [...]
--- OUTSIDE RECORDS SUMMARY | 2020-07-27 10:27 | CCD ---
Author Organization Unknown Address [address] [place] [address] Phone [phone] Care Team Providers Care Air Operations Manager Name Role Phone Dilcia Dunn Unavailable Unavailable [...] 05/17/2020 Test, Urine Urine Hcg negative Main [facility]: [address] [place] [address] Past Encounters 06/28/2020 Moderate Recurrent Major Depression; Posttraumatic Stress Disorder; Gender Identity Disorder of Adulthood; Generalized Anxiety Disorder Darling Triana PRINCIPAL WEB DEVELOPER-R: [address] [facility], [facility] [address], [place] [address], Ph. 06/21/2020 Moderate Recurrent Major Depression; Chronic Post-traumatic Stress Disorder; Generalized Anxiety Disorder Darling Triana PRINCIPAL WEB DEVELOPER-R: [address] [facility], [facility] [address], [place] [address], Ph. 06/06/2020 Moderate Recurrent Major Depression; Chronic Post-traumatic Stress Disorder; Generalized Anxiety Disorder; Gender Dysphoria in Adolescence and Adulthood Darling Triana PRINCIPAL WEB DEVELOPER-R: [address] [facility], [facility] [address], [place] [address], Ph. 05/23/2020 Gender Dysphoria in Adolescence and Adulthood; Moderate Recurrent Major Depression; Generalized Anxiety Disorder Darling Triana [facility]: [address] [facility] [address], [place] [address], Ph. 05/17/2020 Contraception Using Injectable Contraceptive Medication; Contraception Care Management AJAY ValdesBC: [address] [place] [phone], Ph. 05/11/2020 Hormone Replacement Therapy; Pruritus of Vagina GRANT Valdes: [address] [place] [phone], Ph. Social History Tobacco Smoking Status Heavy [...]
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
--- OUTSIDE RECORDS SUMMARY | 2020-07-27 10:27 | CCD ---
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 Pt reports unsure which med it was, but broke out in hives. Medications Name Status Start Date Stop Date azithromycin 250 mg tablet Completed 05/11 BD Luer-Kiera Syringe 3 mL 25 x 5/8" USE TO INJECT MEDICATION INTRAMUSCULARLY ONCE WEEKLY Completed 07/18/2020 Deblitane 0.35 mg tablet Completed 021 Depo-Provera 150 mg/mL intramuscular syr kianna Inject 1 mL every 3 months by intramuscular route. Active Not available fluoxetine 20 mg capsule Completed gabapentin 300 mg capsule Completed 2020 ibuprofen Active Not available medroxyprogesterone 150 mg/mL intramuscu lar suspension INJECT 1ML INTRAMUSCULARLY ONCE Active Not yadiel ilable montelukast 10 mg tablet Completed nitrofurantoin monohydrate/macrocrystals 100 mg capsule Complete d 05/11/2020 perphenazine 2 mg tablet Completed 021 testosterone cypionate 200 mg/mL intramu scular oil INJECT 0.25 ML INTRAMUSCULARLY EVERY WEEK DIRECTED FOR 28 DAYS MAXIMUM DAILY DOSE = 0.25 ML EVERY 7 DAYS Active Not availabl e Tylenol Active Not available Problems Name Status Onset [...] Therapy Active 11/11/2019 Hist ory Acute Cystitis Unknown 01/14/2020 History Finding of Desire for Urination Unknown 01/14/2020 History Left Lower Quadrant Pain Unknown 01/14/2020 History Syphilis Test Finding Unknown 01/14/2020 History Contraception Using Injectable Contraceptive Medication Active 02/03/2020 History Moderate Recurrent Major Depression Active 02/22/2020 History Procedures Date Name Performed by Extraction of [place] Tooth Notes: 2013 ( X 3 teeth) Information not available Tonsilectomy/adenoids Notes: 2002 Information not available Results Lab Results Date Name Specimen Result Interpretation Description Value Range Status Address 07/18/2020 CBC W/ Auto Diff Normal White Blood Count 6.1 10 4.0-10.0 10 [facility]: [address] [place] [address] Normal Red Blood Count 5.07 10 4.00-5.40 10 [facility]: [address] [place] [address] High Hemoglobin 15.9 g/dL 12.0-15.5 g/dL [facility]: [address] [place] [address] High Hematocrit 47.1 % 36.0-47.0 % [facility]: [address] [place] [address] Normal Mean Corpuscular Volume 92.9 fL 80.0 -96.0 fL [facility]: [address] [place] [address] Normal Mean Corpuscular Hemoglobin 31.4 pg 27.0-33.0 pg [facility]: [address] [place] [address] Normal Mean Corpuscular HGB Conc 33.8 g/dL 32.0-36.5 g/dL [facility]: [address] [place] [address] Normal Red Cell Distribution Width 12.8 % 1 1.5-14.5 % [facility]: [address] [place] [address] Normal Platelet Count, Automated 274 10 150 -450 10 [facility]: [address] [place] [address] Normal Neutrophils % 48.0 % 36.0-66.0 % [facility]: [address] [place], [place] [address]wn Normal Lymph % 37.9 % 24.0-44.0 % Final [facility]: [address] [facility] High [place] % 9.5 % 0.0-5.0 % Final [facility]: [address] [facility] High Eos % 3.3 % 0.0-3.0 % [facility]: [address] [facility] Normal Baso % 1.0 % 0.0-1.0 % [facility]: [address] [facility] Normal Immature Granulocyte % 0.3 % 0-3.0 % [facility]: [address] [facility] Normal Nucleated Red Blood Cell % 0.0 % 0- 0 % [facility]: [address] [facility] Normal Neutrophils # 2.9 10 1.5-8.5 10 [facility]: [address] [facility] Normal Lymph # 2.3 10 1.5-5.0 10 [facility]: [address] [facility] Normal [place] # 0.6 10 0.0-0.8 10 [facility]: [address] [facility] Normal Eos # 0.2 10 0.0-0.5 10 [facility]: [address] [facility] Normal Baso # 0.1 10 0.0-0.2 10 [facility]: [address] [facility] 07/18/2020 CMP, Serum or Plasma Normal Glucose, Fastin g 76 mg/dL 70-100 mg/dL [facility]: [address] [facility] Normal Blood Urea Nitrogen 12 mg/dL 7-18 mg /dL [facility]: [address] [facility] Normal Creatinine for GFR 0.84 mg/dL 0.55-1 .30 mg/dL [facility]: [address] [facility] Normal Glomerular Filtration Rate > 60.0 >6 0 [facility]: [address] [facility] Normal Sodium Level 139 mEq/L 136-145 mEq/L [facility]: [address] [facility] Normal Potassium Serum 4.5 mEq/L 3.5-5.1 mE q/L [facility]: [address] [place] [address] High Chloride Level 109 mEq/L 98-107 mEq/ L [facility]: [address] [place] [address] Normal Carbon Dioxide Level 27 mEq/L 21-32 mEq/L [facility]: [address] [place] [address] Low Anion Gap 3 mEq/L 8-16 mEq/L [facility]: [address] [place] [address] Normal Calcium Level 9.0 mg/dL 8.5-10.1 mg/ dL [facility]: [address] [place] [address] Normal AST/SGOT 15 U/L 7-37 U/L [facility]: [address] [place] [address] Normal ALT/SGPT 38 U/L 12-78 U/L [facility]: [address] [place] [address] Normal Alkaline Phosphatase 85 U/L 45-117 U /L [facility]: [address] [place] [address] Normal Bilirubin,total 0.4 mg/dL 0.2-1.0 mg /dL [facility]: [address] [place] [address] Normal Total Protein 7.5 gm/dL 6.4-8.2 gm/d L [facility]: [address] [place] [address] Normal Albumin 4.4 gm/dL 3.2-5.2 gm/dL Claudia l [facility]: [address] [place] [address] Normal Albumin/globulin Ratio 1.4 1.2-2. 2 [facility]: [address] [place] [address] 05/17/2020 Test, Urine Urine Hcg negative [facility]: [address] [place] [address] Past Encounters 07/18/2020 Pre-surgery Evaluation; Menorrhagia; Gender Dysphoria in Adolescence and Adulthood; Hormone Replacement Therapy; Obesity; Moderate Recurrent Major Depression; Generalized Anxiety Disorder Tamar Fry PA-C: [address] [place] [phone], Ph. 07/12/2020 Moderate Recurrent Major Depression; Chronic Post-traumatic Stress Disorder; Gender Dysphoria in Adolescence and Adulthood; Generalized Anxiety Disorder SEJAL SmithW-R: [address] [facility], [facility] [address], [place] [address], Ph. 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 06/21/2020 Moderate Recurrent Major Depression; Chronic Post-traumatic Stress Disorder; Generalized Anxiety Disorder Darling Triana [facility]: [address] [facility], [facility] [address], [place] [address], Ph. 06/06/2020 Moderate Recurrent Major Depression; Chronic Post-traumatic Stress Disorder; Generalized Anxiety Disorder; Gender Dysphoria in Adolescence and Adulthood Darling Triana [facility]: [address] [facility], [facility] [address], [place] [address], Ph. 05/23/2020 Gender Dysphoria in Adolescence and Adulthood; Moderate Recurrent Major Depression; Generalized Anxiety Disorder Darling Triana [facility]: [address] [facility], [facility] [address], [place] [address], Ph. 05/17/2020 Contraception Using Injectable Contraceptive Medication; Contraception Care Management GRANT Valdes: [address] [place] [address], Ph. 05/11/2020 Hormone Replacement Therapy; Pruritus of Vagina GRANT Valdes: [address] [place] [address], Ph. Social History Tobacco Smoking Status Heavy Tobacco Smoker (1 PPD) Vaccine List None recorded. Plan of Care Reminders Provider Appointments None recorded. Lab None recorded. Referral None recorded. Procedures None recorded. Surgeries None recorded. Imaging None recorded. Vitals 07/18/2020 01:40PM MEDICAL CLEARANCE Height Weight BMI Blood Pressure 65.5 in 227 lbs 8 oz 37.3 kg/m2 113/78 mm[Hg] 05/11/2020 01:00PM TELEHEALTH 20 Height 65.5 in [...]
--- OUTSIDE RECORDS SUMMARY | 2020-07-27 10:27 | CCD ---
Author Author [facility] Organization [facility] Address Unknown Phone Unavailable Care Team Providers Care Commodity Management Specialist Name Role Phone Zhanna Oneillhan Unavailable PROBLEMS Type Condition ICD9-CM Code [id number] Code Onset Dates Condition S tatus SNOMED Code Notes Problem Abnormal uterine bleeding N93.9 Active 134764 [id number] Problem Lichen sclerosus L90.0 Active 83789005 ALLERGIES Allergen (clinical drug ingredient) Drug/Non Drug Allergy do cumented on EMR Reaction Allergy Type Onset Date Status Antibiotic hives Drug Allergy Active walnuts Unknown Non Drug Allergy 06/29/2019 Active ENCOUNTERS from 1995 to 2020-06-29 Encounter Location Date Provider Diagnosis [facility] [address] [place] [phone] Jun, Tao Oneill Abnormal uterine ble eding N93.9 ; Lichen simplex chronicus L28.0 and Routine screening for STI (sexually transmitted infection) Z11.3 IMMUNIZATIONS No Information SOCIAL HISTORY Tobacco Use: Social History Observation Description Date Details (start date - stop date) Current Smoker Sex Assigned At : Social History Observation Description Sex Assigned At Unknown Education: Question Answer Notes Level of Education: Not Finished College Language: Question Answer Notes Languages spoken: Spanish Alcohol Screening: Question Answer Notes Did you [...] REASON FOR REFERRAL No Information VITAL SIGNS Weight 236 lbs Jun, Weight-kg 107.05 kg Jun, Height 65 in Jun, BMI 39.27 kg/m2 Jun, Blood pressure systolic 128 mm Hg Jun, Blood pressure diastolic 74 mm Hg Jun, MEDICATIONS Medication SIG (Take, Route, Frequency, Duration) [...] day(s) Jun, Not-Taking PROCEDURES No Information RESULTS REASON FOR VISIT DISCUSS BC OPTIONS AND HAVING DISCOMFORT MEDICAL (GENERAL) HISTORY Type Description Date Medical History Hypothyroidism Medical History PTSD Surgical History tonsillectomy Surgical History adenoidectomy Surgical History Tumor removed from scalp-benign Hospitalization History mental illness Hospitalization History surgical Goals Section No Information Health Concerns No Information MEDICAL EQUIPMENT No Information MENTAL STATUS No Information FUNCTIONAL STATUS No Information ASSESSMENTS Encounter Date Diagnosis Assessment Notes Treatment Notes Treatm ent Clinical Notes Jun, Abnormal uterine bleeding (ICD-10 - N93.9) AUB workup will be completed with labs and pelvic US. Discussed treatment options. Patient is adamant about proceeding with hysterectomy instead of more conservative measures that have failed in the past. 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 Info submitted for hysterectomy surgical scheduling. Jun, Lichen simplex chronicus (ICD-10 - L28.0) Advised Clobetasol. Should improve over 4 weeks. Jun, Routine screening for STI (s exually transmitted infection) (ICD-10 - Z11.3) PLAN OF TREATMENT Medication Medication Name Sig Start Date Stop Date Clobetasol Propionate 0.05 % 1 application Externally Once a day for 14 day(s) Jun, Treatment Notes Assessment Notes Clinical Notes Abnormal uterine bleeding AUB workup abida l be completed with labs and pelvic US.Discussed treatment options. Patient is adamant about proceeding with hysterectomy instead of more conservative measures that have failed in the past. 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 Info submitted for hysterectomy surgical scheduling. Lichen simplex chronicus Advised Clobeta rosio. Should improve over 4 weeks. Treatment Notes Test Name Order Date [facility] Pelvis non-OB COMPLETE 2020-06-29 Next Appt Details Provider Name:Tao Oneill, 02:20:00 PM, [address] [place] [address], [phone], Provider Name:Tao Oneill, 10:00:00 AM, [address] [place] [address], [phone], Provider Name:Tao Oneill, 08:20:00 AM, [address] [place] [address], [phone], Provider Name:Tao Oneill, 08:20:00 AM, [address] [place] [address], [phone], Insurance Providers Payer Name Payer Address Payer Phone Insured Name Patient Relati onship to Insured Coverage Start Date Coverage End Date [facility] [address] [facility] [phone] ADRIANA MELGOZA
--- OUTSIDE RECORDS SUMMARY | 2020-07-27 10:28 | CCD ---
Author Author [facility] Organization [facility] Address Unknown Phone Unavailable Care Team Providers Care Activities Attendant Name Role Phone BAER, RYLEE SUDHEER RPA-C Unavailable Unavailable BAER, RYLEE SUDHEER RPA-C Unavailable Unavailable BAER, RYLEE SUDHEER RPA-C Unavailable Unavailable BAER, RYLEE SUDHEER RPA-C Unavailable Unavailable BAER, RYLEE SUDHEER RPA-C Unavailable Unavailable BAER, RYLEE SUDHEER RPA-C Unavailable Unavailable BAER, RYLEE SUDHEER RPA-C Unavailable Unavailable BAER, RYLEE SUDHEER RPA-C Unavailable Unavailable BAER, RYLEE SUDHEER RPA-C Unavailable Unavailable BAER, RYLEE SUDHEER RPA-C Unavailable Unavailable BAER, RYLEE SUDHEER RPA-C Unavailable Unavailable BAER, RYLEE SUDHEER RPA-C Unavailable Unavailable BAER, RYLEE SUDHEER RPA-C Unavailable Unavailable BAER, RYLEE SUDHEER RPA-C Unavailable Unavailable BAER, RYLEE SUDHEER RPA-C Unavailable Unavailable BAER, RYLEE SUDHEER RPA-C Unavailable Unavailable BAER, RYLEE SUDHEER RPA-C Unavailable Unavailable BAER, RYLEE SUDHEER RPA-C Unavailable Unavailable BAER, RYLEE SUDHEER RPA-C Unavailable Unavailable BAER, RYLEE SUDHEER RPA-C Unavailable Unavailable BAER, RYLEE SUDHEER RPA-C Unavailable Unavailable BAER, RYLEE SUDHEER RPA-C Unavailable Unavailable BAER, RYLEE SUDHEER RPA-C Unavailable Unavailable BAER, RYLEE SUDHEER RPA-C Unavailable Unavailable BAER, RYLEE SUDHEER RPA-C Unavailable Unavailable BAER, RYLEE SUDHEER RPA-C Unavailable Unavailable BAER, RYLEE SUDHEER RPA-C Unavailable Unavailable BAER, RYLEE SUDHEER RPA-C Unavailable Unavailable BAER, RYLEE SUDHEER RPA-C Unavailable Unavailable BAER, RYLEE SUDHEER RPA-C Unavailable Unavailable BAER, RYLEE SUDHEER RPA-C Unavailable Unavailable BAER, RYLEE SUDHEER RPA-C Unavailable Unavailable BAER, RYLEE SUDHEER RPA-C Unavailable Unavailable BAER, RYLEE SUDHEER RPA-C Unavailable Unavailable BAER, RYLEE SUDHEER RPA-C Unavailable Unavailable BAER, RYLEE SUDHEER RPA-C Unavailable Unavailable BAER, RYLEE SUDHEER RPA-C Unavailable Unavailable BAER, RYLEE SUDHEER RPA-C Unavailable Unavailable Yvrose Sanabria MD Unavailable Unavailable Yvrose Sanabria MD Unavailable Unavailable Yvrose Sanabria MD Unavailable Unavailable Yvrose Sanabria MD Unavailable Unavailable Yvrose Sanabria MD Unavailable Unavailable Yvrose Sanabria MD Unavailable Unavailable Yvrose Sanabria MD Unavailable Unavailable Yvrose Sanabria MD Unavailable Unavailable Yvrose Sanabria MD Unavailable Unavailable Yvrose Sanabria MD Unavailable Unavailable Yvrose Sanabria MD Unavailable Unavailable Yvrose Sanabria MD Unavailable Unavailable Yvrose Sanabria MD Unavailable Unavailable Yvrose Sanabria MD Unavailable Unavailable Yvrose Sanabria MD Unavailable Unavailable Yvrose Sanabria MD Unavailable Unavailable Yvrose Sanabria MD Unavailable Unavailable Yvrose Sanabria MD Unavailable Unavailable Yvrose Sanabria MD Unavailable Unavailable Yvrose Sanabria MD Unavailable Unavailable DanieleYvrose sanches MD Unavailable Unavailable Daniele, Yvrose Monk MD Unavailable Unavailable Daniele, Yvrose Monk MD Unavailable Unavailable Daniele, Yvrose Monk MD Unavailable Unavailable Daniele, Yvrose Monk MD Unavailable Unavailable Daniele, Yvrose Monk MD Unavailable Unavailable DanieleYvrose sanches MD Unavailable Unavailable Daniele, Yvrose Monk MD Unavailable Unavailable Daniele, Yvrose Monk MD Unavailable Unavailable Daniele, Yvrose Monk MD Unavailable Unavailable Daniele, Yvrose Monk MD Unavailable Unavailable Daniele, Yvrose Monk MD Unavailable Unavailable Daniele, Yvrose Monk MD Unavailable Unavailable Daniele, Yvrose Monk MD Unavailable Unavailable Daniele, Yvrose Monk MD Unavailable Unavailable Daniele, Yvrose Monk MD Unavailable Unavailable Daniele, Yvrose Monk MD Unavailable Unavailable Daniele, Yvrose Monk MD Unavailable Unavailable Daniele, Yvrose Monk MD Unavailable Unavailable DanieleYvrose sanches MD Unavailable Unavailable Daniele, Yvrose Monk MD Unavailable Unavailable Daniele, Yvrose Monk MD Unavailable Unavailable Daniele, Yvrose Monk MD Unavailable Unavailable Daniele, Yvrose Monk MD Unavailable Unavailable Daniele, Yvrose Monk MD Unavailable Unavailable Daniele, Yvrose Monk MD Unavailable Unavailable Daniele, Yvrose Monk MD Unavailable Unavailable Daniele, Yvrose Monk MD Unavailable Unavailable Daniele, Yvrose Monk MD Unavailable Unavailable Daniele, Yvrose Monk MD Unavailable Unavailable Daniele, Yvrose Monk MD Unavailable Unavailable DanieleYvrose arzate MD Unavailable Unavailable DanieleYvrose arzate MD Unavailable Unavailable DanieleYvrose arzate MD Unavailable Unavailable Scordo, M Tamar PA Unavailable Unavailable Scordo, M Tamra PA Unavailable Unavailable Scordo, M Tamar PA Unavailable Unavailable Scordo, M Tamar PA Unavailable Unavailable Scordo, M Tamar PA Unavailable Unavailable Scordo, M Tamar PA Unavailable Unavailable Scordo, M Tamar PA Unavailable Unavailable Scordo, M Tamar PA Unavailable Unavailable Scordo, M Tamar PA Unavailable Unavailable Scordo, M Tamar PA Unavailable Unavailable Scordo, M Tamar PA Unavailable Unavailable Scordo, M Tamar PA Unavailable Unavailable Scordo, M Tamar PA Unavailable Unavailable Scordo, M Tamar PA Unavailable Unavailable Scordo, M Tamar PA Unavailable Unavailable Scordo, M Tamar PA Unavailable Unavailable Scordo, M Tamar PA Unavailable Unavailable Scordo, M Tamar PA Unavailable Unavailable Scordo, M Tamar PA Unavailable Unavailable Scordo, M Tamar PA Unavailable Unavailable Scordo, M Tamar PA Unavailable Unavailable Scordo, M Tamar PA Unavailable Unavailable Scordo, M Tamar PA Unavailable Unavailable Scordo, M Tamar PA Unavailable Unavailable Scordo, M Tamar PA Unavailable Unavailable Scordo, M Tamar PA Unavailable Unavailable Scordo, M Tamar PA Unavailable Unavailable Scordo, M Tamar PA Unavailable Unavailable Scordo, M Tamar PA Unavailable Unavailable Scordo, M Tamar PA Unavailable Unavailable Scordo, M Tamar PA Unavailable Unavailable Scordo, M Tamar PA Unavailable Unavailable Scordo, M Tamar PA Unavailable Unavailable Scordo, M Tamar PA Unavailable Unavailable Scordo, M Tamar PA Unavailable Unavailable Scordo, M Tamar PA Unavailable Unavailable Scordo, M Tamar PA Unavailable Unavailable Scordo, M Tamar PA Unavailable Unavailable Scordo, M Tamar PA Unavailable Unavailable Scordo, M Tamar PA Unavailable Unavailable Dunn, E Dilcia DOPE HEATER Unavailable Unavailable Dunn, E Dilcia DOPE HEATER Unavailable Unavailable Dunn, E Dilcia DOPE HEATER Unavailable Unavailable Dunn, E Dilcia DOPE HEATER Unavailable Unavailable Dunn, E Dilcia DOPE HEATER Unavailable Unavailable Dunn, E Dilcia DOPE HEATER Unavailable Unavailable Dunn, E Dilcia DOPE HEATER Unavailable Unavailable Dunn, E Dilcia DOPE HEATER Unavailable Unavailable Dunn, E Dilcia DOPE HEATER Unavailable Unavailable Dunn, E Dilcia DOPE HEATER Unavailable Unavailable Dunn, E Dilcia DOPE HEATER Unavailable Unavailable Dunn, E Dilcia DOPE HEATER Unavailable Unavailable Dunn, E Dilcia DOPE HEATER Unavailable Unavailable Dunn, E Dilcia DOPE HEATER Unavailable Unavailable Dunn, E Dilcia DOPE HEATER Unavailable Unavailable Dunn, E Dilcia DOPE HEATER Unavailable Unavailable Dunn, E Dilcia DOPE HEATER Unavailable Unavailable Dunn, E Dilcia DOPE HEATER Unavailable Unavailable Dunn, E Dilcia DOPE HEATER Unavailable Unavailable Dunn, E Dilcia DOPE HEATER Unavailable Unavailable Dunn, E Dilcia DOPE HEATER Unavailable Unavailable Dunn, E Dilcia DOPE HEATER Unavailable Unavailable MAHIN, DILAN PA Unavailable Unavailable MAHIN, DILAN PA Unavailable Unavailable MAHIN, DILAN PA Unavailable Unavailable MAHIN, DILAN PA Unavailable Unavailable MAHIN, DILAN PA Unavailable Unavailable MAHIN, DILAN PA Unavailable Unavailable MAHIN, DILAN PA Unavailable Unavailable MAHIN, DILAN PA Unavailable Unavailable MAHIN, DILAN PA Unavailable Unavailable MAHIN, DILAN PA Unavailable Unavailable MAHIN, DILAN PA Unavailable Unavailable MAHIN, DILAN PA Unavailable Unavailable MAHIN, DILAN PA Unavailable Unavailable MAHIN, DILAN PA Unavailable Unavailable MAHIN, DILAN PA Unavailable Unavailable MAHIN, DILAN PA Unavailable Unavailable MAHIN, DILAN PA Unavailable Unavailable MAHIN, DILAN PA Unavailable Unavailable MAHIN, DILAN PA Unavailable Unavailable MAHIN, DILAN PA Unavailable Unavailable MAHIN, DILAN PA Unavailable Unavailable MAHIN, DILAN PA Unavailable Unavailable MAHIN, DILAN PA Unavailable Unavailable MAHIN, DILAN PA Unavailable Unavailable MAHIN, DIALN PA Unavailable Unavailable MAHIN, DILAN PA Unavailable Unavailable MAHIN, DILAN PA Unavailable Unavailable MAHIN, DILAN PA Unavailable Unavailable MAHIN, DILAN PA Unavailable Unavailable MAHIN, DILAN PA Unavailable Unavailable MAHIN, DILAN PA Unavailable Unavailable MAHIN, DILAN PA Unavailable Unavailable MAHIN, DILAN PA Unavailable Unavailable MAHIN, DILAN PA Unavailable Unavailable MAHIN, DILAN PA Unavailable Unavailable MAHIN, DILAN PA Unavailable Unavailable MAHIN, DILAN PA Unavailable Unavailable MAHIN, DILAN PA Unavailable Unavailable Darling Triana Unavailable [phone] [facility] Unavailable Unavailable Re-disclosure Warning The records that you are about to access may contain information from federally-assisted alcohol or drug abuse programs. If such information is present, then the following federally mandated warning applies: This information has been disclosed to you from records protected by federal confidentiality rules (42 CFR part 2). The federal rules prohibit you from making any further disclosure of this information unless further disclosure is expressly permitted by the written consent of the person to whom it pertains or as otherwise permitted by 42 CFR part 2. A general authorization for the release of medical or other information is NOT sufficient for this purpose. The Federal rules restrict any use of the information to criminally investigate or prosecute any alcohol or drug abuse patient.The records that you are about to access may contain highly sensitive health information, the redisclosure of which is protected by Article 27-F of the [place] Public Health law. If you continue you may have access to information: Regarding HIV / AIDS; Provided by facilities licensed or operated by the [place] Office of Mental Health; or Provided by the [place] Office for People With Developmental Disabilities. If such information is present, then the following [place] [facility] mandated warning applies: This information has been disclosed to you from confidential records which are protected by state law. State law prohibits you from making any further disclosure of this information without the specific written consent of the person to whom it pertains, or as otherwise permitted by law. Any unauthorized further disclosure in violation of state law may result in a fine or correction sentence or both. A general authorization for the release of medical or other information is NOT sufficient authorization for further disc losure. Allergies and Adverse Reactions Type Description Substance Reaction Status Data Source(s ) No Known Drug Allergies No Known Drug Allergies [facility] Propensity to adverse reactions walnuts Propensity to ad verse reactions Unknown Active eCW1 ([facility]) Propensity to adverse reactions walnuts Propensity to ad verse reactions Unknown Active eCW1 ([facility]) Propensity to adverse reactions walnuts Propensity to ad verse reactions Unknown Active eCW1 ([facility]) walnuts walnuts walnuts Unknown Active eCW1 ([facility]) Antibiotic Antibiotic Antibiotic hives Active eCW1 ([facility]) Family History Family Member Name Family Member Gender Family Member Status Date o f Status Description Data Source(s) Unknown Unknown Problem [facility] mother,mgfmaternal aunts and uncles Encounters Encounter Providers Location Date Indications Data Source(s ) Outpatient [address] [facility] [place] [address] 07/22/2020 12:00:00 AM EST eCW1 ([facility]) ATIYA ToneyC: [address] [place] [address], Ph. Attender: Tamar GARCIA - [facility] Medical 07/18/2020 12:00:00 AM EST [place] ([facility]) Dalring Triana MANUFACTURING PRODUCTION TECHNICIAN-R: [address], [place] [address], Ph. Attender: Darling Triana [facility] Medical 07/12/2020 12:00:00 AM EST [place] ([facility]) Darling Triana, MANUFACTURING PRODUCTION TECHNICIAN-R: [address], [place] [address], Ph. Attender: Darling Triana [facility] Medical 07/12/2020 12:00:00 AM EST [place] ([facility]) Darling Triana, MANUFACTURING PRODUCTION TECHNICIAN-R: [address], [place] [address], Ph. Attender: Darling Triana [facility] Medical 06/28/2020 12:00:00 AM EST [place] ([facility]) Darling Triana, MANUFACTURING PRODUCTION TECHNICIAN-R: [address], [place] [address], Ph. Attender: Darling Triana [facility] Medical 06/28/2020 12:00:00 AM EST [place] ([facility]) Darling Triana, MANUFACTURING PRODUCTION TECHNICIAN-R: [address], [place] [address], Ph. Attender: Darling Triana [facility] Medical 06/28/2020 12:00:00 AM EST [place] ([facility]) Unknown [address] [facility] [place] [address] 06/24/2020 12:00:00 AM EST eCW1 ([facility]) Out[place] [address] [facility] [place] [address] 06/22/2020 12:00:00 AM EST eCW1 ([facility]) Darling Triana, MANUFACTURING PRODUCTION TECHNICIAN-R: [address], [place] [address], Ph. Attender: Darling Triana [facility] Medical 06/21/2020 12:00:00 AM EST [place] ([facility]) Darling Triana, MANUFACTURING PRODUCTION TECHNICIAN-R: [address], [place] [address], Ph. Attender: Darling Triana [facility] Medical 06/21/2020 12:00:00 AM EST [place] ([facility]) Darling Triana, MANUFACTURING PRODUCTION TECHNICIAN-R: [address], [place] [address], Ph. Attender: Darling Triana [facility] Medical 06/21/2020 12:00:00 AM EST [place] ([facility]) Darling Triana, MANUFACTURING PRODUCTION TECHNICIAN-R: [address], [place] [address], Ph. Attender: Darling Triana [facility] Medical 06/21/2020 12:00:00 AM EST [place] ([facility]) Darling Triana, MANUFACTURING PRODUCTION TECHNICIAN-R: [address], [place] [address], Ph. Attender: Darling Triana [facility] Medical 06/06/2020 12:00:00 AM EST [place] ([facility]) Darling Triana, MANUFACTURING PRODUCTION TECHNICIAN-R: [address], [place] [address], Ph. Attender: Darling Triana [facility] Medical 06/06/2020 12:00:00 AM EST [place] ([facility]) Darling Triana, MANUFACTURING PRODUCTION TECHNICIAN-R: [address], [place] [address], Ph. Attender: Darling Triana [facility] Medical 06/06/2020 12:00:00 AM EST [place] ([facility]) Darling Triana, MANUFACTURING PRODUCTION TECHNICIAN-R: [address], [place] [address], Ph. Attender: Darling Triana [facility] Medical 06/06/2020 12:00:00 AM EST [place] ([facility]) Darling Triana, MANUFACTURING PRODUCTION TECHNICIAN-R: [address], [place] [address], Ph. Attender: Darling Triana [facility] Medical 06/06/2020 12:00:00 AM EST [place] ([facility]) Darling Triana, MANUFACTURING PRODUCTION TECHNICIAN-R: [address], [place] [address], Ph. Attender: Darling Triana [facility] Medical 05/23/2020 12:00:00 AM EST [place] ([facility]) Darling Triana, MANUFACTURING PRODUCTION TECHNICIAN-R: [address], [place] [address], Ph. Attender: Darling Triana [facility] Medical 05/23/2020 12:00:00 AM EST [place] ([facility]) Darling Triana, MANUFACTURING PRODUCTION TECHNICIAN-R: [address], [place] [address], Ph. Attender: Darling Triana [facility] Medical 05/23/2020 12:00:00 AM EST [place] ([facility]) Darling Triana, MANUFACTURING PRODUCTION TECHNICIAN-R: [address], [place] [address], Ph. Attender: Darling Triana [facility] Medical 05/23/2020 12:00:00 AM EST [place] ([facility]) Darling Triana, MANUFACTURING PRODUCTION TECHNICIAN-R: [address], [place] [address], Ph. Attender: Darling Triana [facility] Medical 05/23/2020 12:00:00 AM EST [place] ([facility]) AJAY ValdesBC: [address], [place] [address], Ph. Attender: Dilcia Dunn NP [facility] Medical 05/17/2020 12:00:00 AM EST [place] ([facility]) AJAY ValdesBC: [address], [place] [address], Ph. Attender: Dilcia Dunn NP [facility] Medical 05/17/2020 12:00:00 AM EST [place] ([facility]) AJAY ValdesBC: [address], [place] [address], Ph. Attender: Dilcia Dunn NP [facility] Medical 05/17/2020 12:00:00 AM EST [place] ([facility]) AJAY ValdesBC: [address], [place] [address], Ph. Attender: Dilcia Dunn NP [facility] Medical 05/17/2020 12:00:00 AM EST [place] ([facility]) AJAY ValdesBC: [address], [place] [address], Ph. Attender: Dilcia Dunn NP [facility] Medical 05/17/2020 12:00:00 AM EST [place] ([facility]) AJAY ValdesBC: [address], [place] [address], Ph. Attender: Dilcia Dunn NP [facility] Medical 05/17/2020 12:00:00 AM EST [place] ([facility]) [facility]/11/2020 11:22:00 AM ED T [facility] AJAY ValdesBC: [address], [place] [address], Ph. Attender: Dilcia Dunn NP [facility] Medical 05/11/2020 12:00:00 AM EDT [place] ([facility]) AJAY ValdesBC: [address], [place] [address], Ph. Attender: Dilcia Dunn NP [facility] Medical 05/11/2020 12:00:00 AM EDT [place] ([facility]) AJAY ValdesBC: [address], [place] [address], Ph. Attender: Dilcia Dunn NP [place] [facility] Medical 05/11/2020 12:00:00 AM EDT [place] ([facility]) AJAY ValdesBC: [address], [place] [address], Ph. Attender: Dilcia Dunn NP [facility] Medical 05/11/2020 12:00:00 AM EDT [place] ([facility]) AJAY ValdesBC: [address], [place] [address], Ph. Attender: Dilcia Dunn NP [facility] Medical 05/11/2020 12:00:00 AM EDT [place] ([facility]) AJAY ValdesBC: [address], [place] [address], Ph. Attender: Dilcia Dunn NP [facility] Medical 05/11/2020 12:00:00 AM EDT [place] ([facility]) AJAY ValdesBC: [address], [place] [address], Ph. Attender: Dilcia Dunn NP [facility] Medical 05/11/2020 12:00:00 AM EDT [place] ([facility]) Outpatient Attender: ANTOINETTE GEE 04/11/2020 09:11:01 AM ED T [facility] Outpatient Attender: ANTOINETTE GEE 04/08/2020 04:19:01 PM ED T [facility] Outpatient Attender: ANTOINETTE GEE 03/09/2020 12:11:02 PM ED T [facility] Outpatient Attender: ANTOINETTE GEE 02/26/2020 12:26:00 PM ED T [facility] Outpatient Attender: ANTOINETTE GEE 02/17/2020 11:29:03 AM ED T [facility] Outpatient Attender: ANTOINETTE GEE 02/17/2020 11:29:01 AM ED T [facility] Outpatient Attender: ANTOINETTE GEE 02/11/2020 01:11:01 PM ED T [facility] Outpatient Attender: SUDHEER TARIQCConsultant: Lacho smith MD 02/11/2020 10:42:00 AM EDT - 02/11/2020 11:42:00 AM EDT [facility] Patient discharged. Outpatient Attender: ANTOINETTE GEE 02/10/2020 02:42:00 PM ED T [facility] Outpatient Attender: ANTOINETTE DUMAS 02/10/2020 02:40:01 PM ED T [facility] Outpatient Attender: ANTOINETTE GEE 02/10/2020 10:33:02 AM ED T [facility] Outpatient Attender: ANTOINETTE GEE 02/10/2020 10:33:01 AM ED T [facility] Outpatient Attender: ANTOINETTE DUMAS 02/03/2020 03:52:01 PM ED T [facility] Outpatient Attender: ANTOINETTE GEE 02/03/2020 01:22:00 PM ED T [facility] Outpatient Attender: ANTOINETTE DUMAS 02/03/2020 12:49:01 PM ED T [facility] Outpatient Attender: ANTOINETTE DUMAS 02/01/2020 01:02:01 PM ED T [facility] Outpatient Attender: ANTOINETTE DUMAS 01/25/2020 01:06:01 PM ED T [facility] Outpatient Attender: ANTOINETTE DUMAS 01/25/2020 10:37:01 AM ED [facility] Outpatient Attender: ANTOINETTE DUMAS 01/25/2020 10:37:00 AM ED T [facility] Outpatient Attender: SUDHEER TARIQCConsultant: Lacho smith MD 01/21/2020 03:24:56 PM EDT - 01/22/2020 09:36:00 AM EDT [facility] Patient discharged. Outpatient Attender: ANTOINETTE GEE 01/20/2020 10:48:00 AM ED T [facility] Outpatient Attender: ANTOINETTE GEE 01/19/2020 05:56:01 PM ED T [facility] Outpatient Attender: ANTOINETTE GEE 01/19/2020 05:55:59 PM ED T [facility] Outpatient Attender: ANTOINETTE DUMAS FP 01/14/2020 02:26:00 PM ED T [facility] Outpatient Attender: ANTOINETTE PITER GEE 01/14/2020 01:13:00 PM ED T [facility] Outpatient Attender: ALCONVA PITER GEE 01/13/2020 03:37:00 PM ED T [facility] Outpatient Attender: ALCONVA PITER GEE 01/08/2020 09:11:01 AM ED T [facility] Outpatient Attender: ANTOINETTE DUMAS FP 01/06/2020 03:18:05 PM ED T [facility] Outpatient Attender: ANTOINETTE GEE 12/28/2019 01:56:00 PM ED T [facility] Outpatient Attender: ANTOINETTE GEE 12/17/2019 02:56:00 PM ED T [facility] Outpatient Attender: ANTOINETTE DUMAS FP 12/17/2019 02:55:01 PM ED T [facility] Outpatient Attender: DILAN quinn 12/17/2019 12:15:00 PM EDT [facility] Outpatient Attender: ANTOINETTE GEE 12/17/2019 11:26:00 AM ED T [facility] Outpatient Attender: ANTOINETTE GEE 12/16/2019 11:46:01 AM ED T [facility] Outpatient Attender: ANTOINETTE GEE 12/14/2019 01:06:00 PM ED T [facility] Outpatient Attender: ANTOINETTE GEE 12/10/2019 09:07:01 AM ED T [facility] Outpatient Attender: ANTOINETTE DUMAS FP 11/30/2019 01:05:00 PM ED T [facility] Outpatient Attender: ANTOINETTE DUMAS FP 11/25/2019 10:07:59 AM ED T [facility] [facility] Attender: ANTOINETTE GEE 11/18/2019 06:26:01 PM ED T [facility] Attender: ANTOINETTE DUMAS FP 11/18/2019 12:22:01 PM ED T [facility] Attender: ANTOINETTE GEE 11/18/2019 10:55:02 AM ED T [facility]patient Attender: ANTOINETTE GEE 11/18/2019 10:55:00 AM ED T [facility] Attender: ALCONVA DUMAS FP 11/11/2019 06:21:03 PM ED T [facility]patient Attender: ANTOINETTE DUMAS FP 11/11/2019 06:21:01 PM ED T [facility] Attender: ANTOINETTE DUMAS FP 11/11/2019 03:36:53 PM ED T [facility]patient Attender: ANTOINETTE DUMAS FP 11/11/2019 12:58:00 PM ED T [facility] Attender: ANTOINETTE DUMAS FP 11/11/2019 12:16:00 PM ED T [facility] Attender: ANTOINETTE DUMAS FP 11/10/2019 01:18:01 PM ED T [facility] Attender: ANTOINETTE DUMAS FP 11/04/2019 11:04:02 AM ED T [facility] Attender: ANTOINETTE GEE 11/04/2019 11:04:01 AM ED T [facility] Attender: ANTOINETTE DUMAS FP 11/03/2019 08:01:03 PM ED T [facility] Attender: ANTOINETTE DUMAS FP 11/03/2019 08:01:02 PM ED T [facility] Attender: ANTOINETET DUMAS FP 11/02/2019 05:21:01 PM ED T [facility] Attender: ANTOINETTE DUMAS FP 11/02/2019 05:18:00 PM ED T [facility] Attender: ANTOINETTE DUMAS FP 11/02/2019 05:17:00 PM ED T [facility] Attender: ANTOINETTE DUMAS FP 11/02/2019 03:23:00 PM ED T [facility] Attender: ANTOINETTE DUMAS FP 10/27/2019 11:21:03 AM ED T [facility] Attender: ANTOINETTE DUMAS FP 10/14/2019 10:34:02 AM ED T [facility] Attender: ANTOINETTE DUMAS FP 10/14/2019 10:33:01 AM ED T [facility]patient Attender: ANTOINETTE GEE 10/13/2019 11:25:00 AM ED T [facility]patient Attender: ANTOINETTE DUMAS FP 10/08/2019 01:37:28 PM ED T [facility] Attender: [facility]TE [facility] 10/06/2019 09:01:08 PM ED T [facility] 01:21:01 PM ED T [facility] Outpatient Attender: ANTOINETTE [facility] 10/06/2019 01:20:00 PM ED T [address] [address] 06/29/2019 12:00:00 AM EST eCW1 ([facility]) Outpatient Attender: ANTOINETTE [facility] 06/02/2019 11:46:02 AM ES [facility] Medications Medication Brand Name Start Date Product Form Dose Route Admi nistrative Instructions Pharmacy Instructions Status Indications Reaction Description Data Source(s) 200 mg/mL 07/15/2020 12:00:00 AM EST oil 2 INJECT 0.25ML INTRAMUSCULARLY EVERY WEEK DIRECTED - MAXIMUM DAILY DOSE = 0.25ML EVERY 7 DAYS INJECT 0.25ML INTRAMUSCULARLY EVERY WEEK DIRECTED - MAXIMUM DAILY DOSE = 0.25ML EVERY 7 DAYS SOLD: 07/18/2020 [facility] Clobetasol Propionate 0.5 MG/ML Topical Cream Clobetas ol Propionate 0.05 % Clobetasol Propionate 0.05 % 06/22/2020 12:00:00 AM EST 1.0 {applicat ion} suspended Clobetasol Propionate 0.05 % eCW1 ([facility]) Clobetasol Propionate 0.5 MG/ML Topical Cream Clobetas ol Propionate 0.05 % Clobetasol Propionate 0.05 % 06/22/2020 12:00:00 AM EST 1.0 {applicat ion} active Clobetasol Propionate 0.05 % eCW1 ([facility]) Clobetasol Propionate 0.5 MG/ML Topical Cream Clobetas ol Propionate 0.05 % Clobetasol Propionate 0.05 % 06/22/2020 12:00:00 AM EST 1.0 {applicat ion} active Clobetasol Propionate 0.05 % eCW1 ([facility]) 200 mg/mL 06/02/2020 12:00:00 AM EST oil 4 INJECT 0.25 ML INTRAMUSCULARLY EVERY WEEK DIRECTED FOR 28 DAYS MAXIMUM DAILY DOSE = 0.25 ML EVERY 7 DAYS INJECT 0.25 ML INTRAMUSCULARLY EVERY WEEK DIRECTED FOR 28 DAYS MAXIMUM DAILY DOSE = 0.25 ML EVERY 7 DAYS SOLD: 06/16/2020 [facility] 200 mg/mL 05/11/2020 12:00:00 AM EDT oil 2 INJECT 0.25ML EVERY WEEK INTRAMUSCULARLY DIRECTED FOR 28 DAYS MAXIMUM DAILY DOSE = 0.25ML EVERY 7 DAYS INJECT 0.25ML EVERY WEEK INTRAMUSCULARLY DIRECTED FOR 28 DAYS MAXIMUM DAILY DOSE = 0.25ML EVERY 7 DAYS SOLD: 05/11/2020 [facility] 200 mg/mL 04/12/2020 12:00:00 AM EDT oil 2 INJECT 0.25 ML WEEKLY VIALS GOOD FOR 14 DAYS ONCE ENTERED MAXIMUM DAILY DOSE = 0.25 ML INJECT 0.25 ML WEEKLY VIALS GOOD FOR 14 DAYS ONCE ENTERED MAXIMUM DAILY DOSE = 0.25 ML SOLD: 04/12/2020 [facility] 200 mg/mL 03/15/2020 12:00:00 AM EDT oil 4 INJECT 0.25ML ONCE WEEKLY MAXIMUM DAILY DOSE = 0.25ML PER WEEK INJECT 0.25ML ONCE WEEKLY MAXIMUM DAILY DOSE = 0.25ML PER WEEK SOLD: 03/15/2020 [facility] 200 mg/mL 02/17/2020 12:00:00 AM EDT oil 4 INJECT 0.25ML ONCE WEEKLY - MAXIMUM DAILY DOSE = 0.25ML EVERY 7 DAYS INJECT 0.25ML ONCE WEEKLY - MAXIMUM DAILY DOSE = 0.25ML EVERY 7 DAYS SOLD: 02/17/2020 [facility] 150 mg/mL 02/04/2020 12:00:00 AM EDT suspension 1 INJECT 1ML INTRAMUSCULARLY ONCE INJECT 1ML INTRAMUSCULARLY ONCE SOLD: 05/17/2020 [facility] 150 mg/mL 02/04/2020 12:00:00 AM EDT suspension 1 INJECT 1ML INTRAMUSCULARLY ONCE INJECT 1ML INTRAMUSCULARLY ONCE SOLD: 02/04/2020 [facility] 2 mg 02/02/2020 12:00:00 AM EDT tablet 90 TAKE ONE TABLET BY MOUTH EVERY MORNING AND TAKE TWO TABLETS BY MOUTH AT BEDTIME TAKE ONE TABLET BY MOUTH EVERY MORNING AND TAKE TWO TABLETS BY MOUTH AT BEDTIME SOLD: 02/02/2020 [facility] 20 mg 02/02/2020 12:00:00 AM EDT capsule 30 TAKE ONE CAPSULE BY MOUTH EVERY DAY TAKE ONE CAPSULE BY MOUTH EVERY DAY SOLD: 02/02/2020 [facility] 200 mg/mL 01/20/2020 12:00:00 AM EDT oil 4 INJECT 0.25 ML ONCE WEEKLY MAX OF 0.25 ML WEEKLY INJECT 0.25 ML ONCE WEEKLY MAX OF 0.25 ML WEEKLY SOLD: 01/21/2020 [facility] 100 mg 01/14/2020 12:00:00 AM EDT capsule 14 TAKE ONE CAPSULE BY MOUTH TWICE A DAY TAKE ONE CAPSULE BY MOUTH TWICE A DAY SOLD: 01/15/2020 [facility] montelukast 10 MG Oral Tablet MONTELUKAST SODIUM 12/18/2019 12:0 0:00 AM EDT tablet 30 TAKE ONE TABLET BY MOUTH EVERY D AY PRIOR TO SHOT TAKE ONE TABLET BY MOUTH EVERY DAY PRIOR TO SHOT SOLD: 12/19/2019 [facility] 200 mg/mL 12/18/2019 12:00:00 AM EDT oil 4 INJECT 0.25ML WEEKLY MAXIMUM DAILY DOSE = 0.25 WEEKLY INJECT 0.25ML WEEKLY MAXIMUM DAILY DOSE = 0.25 WEEKLY SOLD: 12/19/2019 [facility] Azithromycin 250 MG Oral Tablet Azithromycin 12/17/2019 12:00:00 AM E DT ORAL completed [facility]ENT ([facility]) 250 mg 12/17/2019 12:00:00 AM EDT tablet 4 TAKE FOUR TABLETS BY MOUTH ONCE TAKE FOUR TABLETS BY MOUTH ONCE SOLD: 12/18/2019 [facility] 2 mg 12/15/2019 12:00:00 AM EDT tablet 90 TAKE ONE TABLET BY MOUTH EVERY MORNING AND TAKE TWO TABLETS BY MOUTH EVERY NIGHT AT BEDTIME TAKE ONE TABLET BY MOUTH EVERY MORNING AND TAKE TWO TABLETS BY MOUTH EVERY NIGHT AT BEDTIME SOLD: 12/18/2019 [facility] 2 mg 12/01/2019 12:00:00 AM EDT tablet 60 TAKE ONE TABLET BY MOUTH TWICE A DAY TAKE ONE TABLET BY MOUTH TWICE A DAY SOLD: 12/01/2019 [facility] 3 mL 25 x 5/8" 11/25/2019 12:00:00 AM EDT syringe 4 USE TO INJECT MEDICATION INTRAMUSCULARLY ONCE WEEKLY USE TO INJECT MEDICATION INTRAMUSCULARLY ONCE WEEKLY SOLD: 02/17/2020 [facility] 200 mg/mL 11/25/2019 12:00:00 AM EDT oil 4 INJECT 0.25ML INTRAMUSCULARLY ONCE WEEKLY, NOT TO EXCEED 0.25ML EVERY 7 DAYS INJECT 0.25ML INTRAMUSCULARLY ONCE WEEKLY, NOT TO EXCEED 0.25ML EVERY 7 DAYS SOLD: 11/25/2019 [facility] 3 mL 25 x 5/8" 11/25/2019 12:00:00 AM EDT syringe 4 USE TO INJECT MEDICATION INTRAMUSCULARLY ONCE WEEKLY USE TO INJECT MEDICATION INTRAMUSCULARLY ONCE WEEKLY SOLD: 05/11/2020 [facility] 3 mL 25 x 5/8" 11/25/2019 12:00:00 AM EDT syringe 4 USE TO INJECT MEDICATION INTRAMUSCULARLY ONCE WEEKLY USE TO INJECT MEDICATION INTRAMUSCULARLY ONCE WEEKLY SOLD: 12/20/2019 [facility] 3 mL 25 x 5/8" 11/25/2019 12:00:00 AM EDT syringe 4 USE TO INJECT MEDICATION INTRAMUSCULARLY ONCE WEEKLY USE TO INJECT MEDICATION INTRAMUSCULARLY ONCE WEEKLY SOLD: 01/21/2020 [facility] 3 mL 25 x 5/8" 11/25/2019 12:00:00 AM EDT syringe 4 USE TO INJECT MEDICATION INTRAMUSCULARLY ONCE WEEKLY USE TO INJECT MEDICATION INTRAMUSCULARLY ONCE WEEKLY SOLD: 11/25/2019 [facility] 3 mL 25 x 5/8" 11/25/2019 12:00:00 AM EDT syringe 4 USE TO INJECT MEDICATION INTRAMUSCULARLY ONCE WEEKLY USE TO INJECT MEDICATION INTRAMUSCULARLY ONCE WEEKLY SOLD: 03/15/2020 [facility] 3 mL 25 x 5/8" 11/25/2019 12:00:00 AM EDT syringe 4 USE TO INJECT MEDICATION INTRAMUSCULARLY ONCE WEEKLY USE TO INJECT MEDICATION INTRAMUSCULARLY ONCE WEEKLY SOLD: 04/12/2020 [facility] 3 mL 25 x 5/8" 11/25/2019 12:00:00 AM EDT syringe 4 USE TO INJECT MEDICATION INTRAMUSCULARLY ONCE WEEKLY USE TO INJECT MEDICATION INTRAMUSCULARLY ONCE WEEKLY SOLD: 07/15/2020 [facility] 3 mL 25 x 5/8" 11/25/2019 12:00:00 AM EDT syringe 4 USE TO INJECT MEDICATION INTRAMUSCULARLY ONCE WEEKLY USE TO INJECT MEDICATION INTRAMUSCULARLY ONCE WEEKLY SOLD: 06/16/2020 [facility] 200 mg/mL 11/18/2019 12:00:00 AM EDT oil 1 INJECT 0.25MLS ONCE WEEKLY MAX OF 0.25MLS WEEKLY INJECT 0.25MLS ONCE WEEKLY MAX OF 0.25MLS WEEKLY SOLD: 11/18/2019 [facility] 300 mg 11/02/2019 12:00:00 AM EDT capsule 30 TAKE ONE CAPSULE BY MOUTH AT BEDTIME TAKE ONE CAPSULE BY MOUTH AT BEDTIME SOLD: 11/02/2019 [facility] Kassidy 0.35 MG Kassidy 0.35 MG 06/29/2019 12:00:00 AM EST 1.0 {ta blet} suspended Kassidy 0.35 MG eCW1 ([facility]) Kassidy 0.35 MG Kassidy 0.35 MG 06/29/2019 12:00:00 AM EST 1.0 {ta blet} suspended Kassidy 0.35 MG eCW1 ([facility]) 0.35 mg 06/29/2019 12:00:00 AM EST tablet 28 TAKE ONE TABLET BY MOUTH EVERY DAY TAKE ONE TABLET BY MOUTH EVERY DAY SOLD: 07/01/2019 [facility] Kassidy 0.35 MG Kassidy 0.35 MG 06/29/2019 12:00:00 AM EST active 1 tablet eCW1 ([facility]) Kassidy 0.35 MG Kassidy 0.35 MG 06/29/2019 12:00:00 AM EST 1.0 {ta blet} suspended Kassidy 0.35 MG eCW1 ([facility]) NITROFURANTOIN, MACROCRYSTALS 25 MG / Ni trofurantoin, Monohydrate 75 MG Oral Capsule nitrofurantoin monohydrate/macrocrystals 100 mg capsule nitrofurantoin monohydrate/macrocrystals 100 mg capsule completed nitrofurantoin, macrocrystals 25 MG / nitrofurantoin, monohydrate 75 MG Oral Capsule [facility] ([facility]) NITROFURANTOIN, MACROCRYSTALS 25 MG / Ni trofurantoin, Monohydrate 75 MG Oral Capsule nitrofurantoin monohydrate/macrocrystals 100 mg capsule nitrofurantoin monohydrate/macrocrystals 100 mg capsule completed nitrofurantoin, macrocrystals 25 MG / nitrofurantoin, monohydrate 75 MG Oral Capsule [facility] ([facility]) BD Luer-Kiera Syringe 3 mL 25 x 5/8" USE T O INJECT MEDICATION INTRAMUSCULARLY ONCE WEEKLY [id number] completed BD Luer- Kiera Syringe 3 mL 25 x 5/8" PIP[facility] ([facility]) Azithromycin 250 MG Oral Tablet azithromycin 250 mg ta blet azithromycin 250 mg tablet completed azithromycin 25 0 MG Oral Tablet [place] ([facility]) gabapentin 300 MG Oral Capsule gabapentin 300 mg capsu le gabapentin 300 mg capsule completed gabapentin 300 MG Oral Capsule [place] ([facility]) Azithromycin 250 MG Oral Tablet azithromycin 250 mg ta blet azithromycin 250 mg tablet completed azithromycin 25 0 MG Oral Tablet [place] ([facility]) Azithromycin 250 MG Oral Tablet azithromycin 250 mg ta blet azithromycin 250 mg tablet completed azithromycin 25 0 MG Oral Tablet [place] ([facility]) Azithromycin 250 MG Oral Tablet azithromycin 250 mg ta blet azithromycin 250 mg tablet completed azithromycin 25 0 MG Oral Tablet [place] ([facility]) Perphenazine 2 MG Oral Tablet perphenazine 2 mg tablet perph enazine 2 mg tablet completed perphenazine 2 MG Oral Tablet [place] ([facility]) NITROFURANTOIN, MACROCRYSTALS 25 MG / Ni trofurantoin, Monohydrate 75 MG Oral Capsule nitrofurantoin monohydrate/macrocrystals 100 mg capsule nitrofurantoin monohydrate/macrocrystals 100 mg capsule completed nitrofurantoin, macrocrystals 25 MG / nitrofurantoin, monohydrate 75 MG Oral Capsule [place] ([facility]) NITROFURANTOIN, MACROCRYSTALS 25 MG / Ni trofurantoin, Monohydrate 75 MG Oral Capsule nitrofurantoin monohydrate/macrocrystals 100 mg capsule nitrofurantoin monohydrate/macrocrystals 100 mg capsule completed nitrofurantoin, macrocrystals 25 MG / nitrofurantoin, monohydrate 75 MG Oral Capsule [place] ([facility]) NITROFURANTOIN, MACROCRYSTALS 25 MG / Ni trofurantoin, Monohydrate 75 MG Oral Capsule nitrofurantoin monohydrate/macrocrystals 100 mg capsule nitrofurantoin monohydrate/macrocrystals 100 mg capsule completed nitrofurantoin, macrocrystals 25 MG / nitrofurantoin, monohydrate 75 MG Oral Capsule [place] ([facility]) Deblitane 0.35 mg tablet [id number] comple dakota Deblitane 0.35 mg tablet [place] ([facility]) Fluoxetine 20 MG Oral Capsule fluoxetine 20 mg capsule fluox etine 20 mg capsule completed fluoxetine 20 MG Oral Capsule [place] ([facility]) NITROFURANTOIN, MACROCRYSTALS 25 MG / Ni trofurantoin, Monohydrate 75 MG Oral Capsule nitrofurantoin monohydrate/macrocrystals 100 mg capsule nitrofurantoin monohydrate/macrocrystals 100 mg capsule completed nitrofurantoin, macrocrystals 25 MG / nitrofurantoin, monohydrate 75 MG Oral Capsule [place] ([facility]) montelukast 10 MG Oral Tablet montelukast 10 mg tablet monte lukast 10 mg tablet completed montelukast 10 MG Oral Tablet [place] ([facility]) Azithromycin 250 MG Oral Tablet azithromycin 250 mg ta blet azithromycin 250 mg tablet completed azithromycin 25 0 MG Oral Tablet [facility]) Azithromycin 250 MG Oral Tablet azithromycin 250 mg ta blet azithromycin 250 mg tablet completed azithromycin 25 0 MG Oral Tablet [facility]) Azithromycin 250 MG Oral Tablet azithromycin 250 mg ta blet azithromycin 250 mg tablet completed azithromycin 25 0 MG Oral Tablet [place] ([facility]) NITROFURANTOIN, MACROCRYSTALS 25 MG / Ni trofurantoin, Monohydrate 75 MG Oral Capsule nitrofurantoin monohydrate/macrocrystals 100 mg capsule nitrofurantoin monohydrate/macrocrystals 100 mg capsule completed nitrofurantoin, macrocrystals 25 MG / nitrofurantoin, monohydrate 75 MG Oral Capsule [place] ([facility]) Insurance Providers Payer name Policy type / Coverage type Policy ID Covered libertarian ID Covered libertarian's relationship to kraus Policy Kraus Plan Information [facility] COMMUNITY PLAN MCDO [id number] SP [id number] [place]ED[place] [id number] SP [id number] [facility] O [id number] S [id number] Medicaid S [id number] S [id number] Managed Care [facility] Community Plan P [id number] S [id number] Medicaid S [id number] S [id number] [facility] COMMUNITY PLAN XIX [id number] 18 [id number] Medicaid S [id number] S [id number] MEDICAID [id number] SP [id number] Managed Care [facility] Community Plan P [id number] S [id number] [facility] COMMUNITY PLAN [facility] [id number] SP [id number] Managed Care - [facility] Plan P [id number] S [id number] Managed Care - Community Plan [facility] P [id number] S [id number] Medicaid S [id number] S [id number] BLUE CROSS BLUE SHIELD-O/P [id number] 19 [id number] [place] 302/307 [id number] [id number] [place] [id number] Self [id number] [place] P[place] 302/307 [id number] MO2 [id number] [place]BS [place] PPO 302/307 [id number] [facility] [id number] SP [id number] BCBS/[employer] Commercial [id number] Family Dependent [id number] MEDICAID -O/P EMERGENCY ROOM [id number] [facility] COMMUNITY PLAN CO [id number] 18 [id number] [facility] COMMUNITY PLAN MCDO [id number] SP [id number] [employer] BCBS B [id number] C [id number] [employer] BCBS B [id number] C VYS [id number] BLUE CROSS BLUE SHIELD-O/P [id number] 19 [id number] [place] [id number] PRIVATE PAY CO UNAVAILABLE 18 UNAVAI LABLE SELF PAY ONLY [id number] SP [id number] [place]BS [place] PPO 302/307 [id number] MO2 [id number] [place]BS [place] PPO 302/307 [id number] MO2 [id number] BCBS/[employer] Commercial [id number] Family Dependent [id number] BCBS/[employer] Commercial Family Dependent BCBS OF [place] 306/806 [id number] MO2 [id number] BCBS/[employer] Commercial Family Dependent BLUE CROSS -O/P [id number] BLUE CROSS - CLINIC [id number] BLUE CROSS BLUE SHIELD-CLINIC [id number] BCBS [place] PPO 302/307 [id number] MO2 [id number] [facility] [id number] 19 [id number] [facility]-O/P [id number] Problems, Conditions, and Diagnoses Code Display Name Description Problem Type Effective Dates Data Source(s) L90.0 75219892 Lichen sclerosus Problem 06/22/2020 12:00:00 AM EST eCW1 ([facility]) N93.9 [id number] Abnormal uterine bleeding Problem 06/22/2020 12:00:00 AM EST eCW1 ([facility]) 84663297 Moderate recurrent major depression Mode rate Recurrent Major Depression Problem 02/22/2020 12:00:00 AM EDT [place] ([facility]) 76514298 Moderate recurrent major depression Mode rate Recurrent Major Depression Problem 02/22/2020 12:00:00 AM EDT [facility]) 56081295 Moderate recurrent major depression Mode rate Recurrent Major Depression Problem 02/22/2020 12:00:00 AM EDT [place] ([facility]) 31114977 Moderate recurrent major depression Mode rate Recurrent Major Depression Problem 02/22/2020 12:00:00 AM EDT [place] ([facility]) 50506256 Moderate recurrent major depression Mode rate Recurrent Major Depression Problem 02/22/2020 12:00:00 AM EDT [place] ([facility]) 78962453 Moderate recurrent major depression Mode rate Recurrent Major Depression Problem 02/22/2020 12:00:00 AM EDT [place] ([facility]) 02221678 Moderate recurrent major depression Mode rate Recurrent Major Depression Problem 02/22/2020 12:00:00 AM EDT [facility]) 346301134 Encounter for surveillance of injectable contraceptive Encounter for surveillance of injectable contraceptive 02/03/2020 01:21:15 PM EDT [facility] 722875298 Contraception using injectable contracep tive medication Contraception Using Injectable Contraceptive Medication Problem 02/03/2020 12:00:0 0 AM EDT [facility]) 380259698 Contraception using injectable contracep tive medication Contraception Using Injectable Contraceptive Medication Problem 02/03/2020 12:00:0 0 AM EDT [facility] ([facility]) 614523266 Contraception using injectable contracep tive medication Contraception Using Injectable Contraceptive Medication Problem 02/03/2020 12:00:0 0 AM EDT [facility] ([facility]) 279047694 Contraception using injectable contracep tive medication Contraception Using Injectable Contraceptive Medication Problem 02/03/2020 12:00:0 0 AM EDT [facility] ([facility]) 876400443 Contraception using injectable contracep tive medication Contraception Using Injectable Contraceptive Medication Problem 02/03/2020 12:00:0 0 AM EDT [facility] ([facility]) 077876007 Contraception using injectable contracep tive medication Contraception Using Injectable Contraceptive Medication Problem 02/03/2020 12:00:0 0 AM EDT [facility] ([facility]) 579402485 Contraception using injectable contracep tive medication Contraception Using Injectable Contraceptive Medication Problem 02/03/2020 12:00:0 0 AM EDT [facility] ([facility]) 595.0 Acute cystitis with hematuria Acute cystitis with steve turia 01/14/2020 02:25:43 PM EDT [facility] 789.04 Left lower quadrant pain Left lower quadrant pain 01/14/2020 02:25:43 PM EDT [facility] 788.63 Urgent desire to urinate Urgent desire to urinate 01/14/2020 02:25:43 PM EDT [facility] V74.5 Screening examination for venereal disea se Screening examination for venereal disease 01/14/2020 02:25:43 PM EDT [facility] [id number] Syphilis test finding Syphilis Test Finding Problem 01/14/2020 12:00:00 AM EDT - 07/18/2020 12:00:00 AM ANTHONY [place] ([facility]) 035981359 Left lower quadrant pain Left Lower Quadrant Pain Prob david 01/14/2020 12:00:00 AM EDT - 07/18/2020 12:00:00 AM ANTHONY [facility] ([facility]) 396305234 Finding of desire for urination Finding of Julia e for Urination Problem 01/14/2020 12:00:00 AM EDT - 07/18/2020 12:00:00 AM ES T PPIER ([facility]) 54748935 Acute cystitis Acute Cystitis Problem 01/14/2020 12:00:00 AM EDT - 07/18/2020 12:00:00 AM EST [facility] ([facility]) 808920054 Syphilis test finding Syphilis Test Finding Problem 01/14/2020 12:00:00 AM EDT [facility] ([facility]) 793625713 Left lower quadrant pain Left Lower Quadrant Pain Prob david 01/14/2020 12:00:00 AM EDT [facility] ([facility]) 026200271 Finding of desire for urination Finding of Julia e for Urination Problem 01/14/2020 12:00:00 AM EDT [facility] ([facility]) 16021666 Acute cystitis Acute Cystitis Problem 01/14/2020 12:00: 00 AM EDT [facility] ([facility]) 237282969 Syphilis test finding Syphilis Test Finding Problem 01/14/2020 12:00:00 AM EDT [facility] ([facility]) 948197397 Left lower quadrant pain Left Lower Quadrant Pain Prob david 01/14/2020 12:00:00 AM EDT [facility] ([facility]) 827615820 Finding of desire for urination Finding of Julia e for Urination Problem 01/14/2020 12:00:00 AM EDT [facility] ([facility]) 83113707 Acute cystitis Acute Cystitis Problem 01/14/2020 12:00: 00 AM EDT [facility] ([facility]) 133119040 Syphilis test finding Syphilis Test Finding Problem 01/14/2020 12:00:00 AM EDT [facility] ([facility]) 444020273 Left lower quadrant pain Left Lower Quadrant Pain Prob david 01/14/2020 12:00:00 AM EDT [facility] ([facility]) 650535613 Finding of desire for urination Finding of Julia e for Urination Problem 01/14/2020 12:00:00 AM EDT [facility] ([facility]) 96073971 Acute cystitis Acute Cystitis Problem 01/14/2020 12:00: 00 AM EDT [facility] ([facility]) 670320216 Syphilis test finding Syphilis Test Finding Problem 01/14/2020 12:00:00 AM EDT [place] ([facility]) 599112576 Left lower quadrant pain Left Lower Quadrant Pain Prob david 01/14/2020 12:00:00 AM EDT [place] ([facility]) 211977589 Finding of desire for urination Finding of Julia e for Urination Problem 01/14/2020 12:00:00 AM EDT [place] ([facility]) 35161721 Acute cystitis Acute Cystitis Problem 01/14/2020 12:00: 00 AM EDT [place] ([facility]) 497900365 Syphilis test finding Syphilis Test Finding Problem 01/14/2020 12:00:00 AM EDT [place] ([facility]) 639222593 Left lower quadrant pain Left Lower Quadrant Pain Prob david 01/14/2020 12:00:00 AM EDT [place] ([facility]) 598017303 Finding of desire for urination Finding of Julia e for Urination Problem 01/14/2020 12:00:00 AM EDT [place] ([facility]) [id number] Acute cystitis Acute Cystitis Problem 01/14/2020 12:00: 00 AM EDT [place] ([facility]) [id number] Syphilis test finding Syphilis Test Finding Problem 01/14/2020 12:00:00 AM EDT [place] ([facility]) [id number] Left lower quadrant pain Left Lower Quadrant Pain Prob david 01/14/2020 12:00:00 AM EDT [place] ([facility]) [id number] Finding of desire for urination Finding of Julia e for Urination Problem 01/14/2020 12:00:00 AM EDT [place] ([facility]) [id number] Acute cystitis Acute Cystitis Problem 01/14/2020 12:00: 00 AM EDT [place] ([facility]) T80.29xD Infection following other in fusion, transfusion and therapeutic injection, subsequent encounter Infection following other infusion, rai sfusion and therapeutic injection, subsequent encounter 12/17/2019 0 2:54:11 PM EDT [facility] V07.4 Hormone replacement therapy Hormone replacement therap y 11/11/2019 12:56:30 PM EDT [facility] [id number] Hormone replacement therapy Hormone Replacement Therap y Problem 11/11/2019 12:00:00 AM EDT [place] ([facility]) [id number] Hormone replacement therapy Hormone Replacement Therap y Problem 11/11/2019 12:00:00 AM EDT [place] ([facility]) [id number] Hormone replacement therapy Hormone Replacement Therap y Problem 11/11/2019 12:00:00 AM EDT [place] ([facility]) [id number] Hormone replacement therapy Hormone Replacement Therap y Problem 11/11/2019 12:00:00 AM EDT [place] ([facility]) [id number] Hormone replacement therapy Hormone Replacement Therap y Problem 11/11/2019 12:00:00 AM EDT [place] ([facility]) [id number] Hormone replacement therapy Hormone Replacement Therap y Problem 11/11/2019 12:00:00 AM EDT [place] ([facility]) [id number] Hormone replacement therapy Hormone Replacement Therap y Problem 11/11/2019 12:00:00 AM EDT [place] ([facility]) E07.9 Disorder of thyroid, unspecified Disorder of thyroid, unspecified 10/14/2019 10:32:45 AM EDT [facility] [id number] Disorder of thyroid gland Disorder of Thyroid Gland Pr oblem 10/14/2019 12:00:00 AM EDT [place] ([facility]) [id number] Disorder of thyroid gland Disorder of Thyroid Gland Pr oblem 10/14/2019 12:00:00 AM EDT [place] ([facility]) [id number] Disorder of thyroid gland Disorder of Thyroid Gland Pr oblem 10/14/2019 12:00:00 AM EDT [place] ([facility]) [id number] Disorder of thyroid gland Disorder of Thyroid Gland Pr oblem 10/14/2019 12:00:00 AM EDT [place] ([facility]) [id number] Disorder of thyroid gland Disorder of Thyroid Gland Pr oblem 10/14/2019 12:00:00 AM EDT [place] ([facility]) 34807429 Disorder of thyroid gland Disorder of Thyroid Gland Pr oblem 10/14/2019 12:00:00 AM EDT [place] ([facility]) [id number] Disorder of thyroid gland Disorder of Thyroid Gland Pr oblem 10/14/2019 12:00:00 AM EDT [place] ([facility]) 95037054 Generalized anxiety disorder Generalized Anxiety Disor cristian Problem 10/13/2019 12:00:00 AM EDT [place] ([facility]) 93219587 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 Problem 12:00:00 AM EDT [place] ([facility]) [id number] Generalized anxiety disorder Generalized Anxiety Disor cristian Problem 10/13/2019 12:00:00 AM EDT [place] ([facility]) 97523963 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 Problem 12:00:00 AM EDT [place] ([facility]) 02918972 Generalized anxiety disorder Generalized Anxiety Disor cristian Problem 10/13/2019 12:00:00 AM EDT [place] ([facility]) 38766365 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 Problem 12:00:00 AM EDT [place] ([facility]) [id number] Generalized anxiety disorder Generalized Anxiety Disor cristian Problem 10/13/2019 12:00:00 AM EDT [place] ([facility]) 17329195 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 Problem 12:00:00 AM EDT [place] ([facility]) 22016805 Generalized anxiety disorder Generalized Anxiety Disor cristian Problem 10/13/2019 12:00:00 AM EDT [place] ([facility]) [id number] 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 Problem 12:00:00 AM EDT [place] ([facility]) 57203939 Generalized anxiety disorder Generalized Anxiety Disor cristian Problem 10/13/2019 12:00:00 AM EDT [place] ([facility]) 10093939 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 Problem 12:00:00 AM EDT [place] ([facility]) [id number] Generalized anxiety disorder Generalized Anxiety Disor cristian Problem 10/13/2019 12:00:00 AM EDT [place] ([facility]) 88032371 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 Problem 12:00:00 AM EDT [place] ([facility]) R3915 Urgency of urination Urgency of urination Diagnosis 02/11/2020 10:42:00 AM EDT [facility] R1032 Left lower quadrant pain Left lower quadrant pain Diag nosis 02/11/2020 10:42:00 AM EDT [facility] R99 Ill-defined and unknown cause of mortali ty Ill-defined and unknown cause of mortality Diagnosis 01/22/2020 09:36:00 AM EDT [facility] Results ID Date Data Source [id number] 07/22/2020 01:25:00 PM EST [facility] Name Value Range Interpretation Code Description Data Sulema rce(s) Supporting Document(s) SARS coronavirus 2 RNA Not Detected [facility] This lab was ordered by [facility] and reported by [facility]. ID Date Data Source [id number] 07/18/2020 02:15:00 PM EST [place] ([facility]) Name Value Range Interpretation Code Description Data Sulema rce(s) Supporting Document(s) glucose, fasting 76 mg/dL 70-100 normal Glucose, Fasting AT [facility]) blood urea nitrogen 12 mg/dL 7-18 normal Blood Urea Nitro gen [place] ([facility]) creatinine for GFR 0.84 mg/dL 0.55-1.30 normal Creatinine for GF R [place] ([facility]) glomerular filtration rate > 60.0 >60 normal Glomerula r Filtration Rate [place] ([facility]) potassium serum 4.5 mEq/L 3.5-5.1 normal Potassium Serum AT[facility] NA ([facility]) sodium level 139 mEq/L 136-145 normal Sodium Level [place] ([facility]) chloride level 109 mEq/L 98-107 Above high normal Chloride Level [place] ([facility]) anion gap 3 mEq/L 8-16 Below low normal Anion Gap [place] ( [facility]) calcium level 9.0 mg/dL 8.5-10.1 normal Calcium Level [place] ( [facility]) carbon dioxide level 27 mEq/L 21-32 normal Carbon Dioxide Level [place] ([facility]) bilirubin,total 0.4 mg/dL 0.2-1.0 normal Bilirubin,total [facility] ([facility]) alkaline phosphatase 85 U/L 45-117 normal Alkaline Phosph atase [place] ([facility]) AST/SGOT 15 U/L 7-37 normal AST/SGOT [place] ([facility]) ALT/SGPT 38 U/L 12-78 normal ALT/SGPT [place] ([facility]) albumin/globulin ratio 1.2-2.2 normal Albumin/globu kanu Ratio [place] ([facility]) total protein 7.5 gm/dL 6.4-8.2 normal Total Protein [place] ( [facility]) albumin 4.4 gm/dL 3.2-5.2 normal Albumin [place] ([facility]) ID Date Data Source [id number] 07/18/2020 02:15:00 PM EST [place] ([facility]) Name Value Range Interpretation Code Description Data Sulema rce(s) Supporting Document(s) hemoglobin 15.9 g/dL 12.0-15.5 Above high normal Hemoglobin [place] ([facility]) red blood count 5.07 10 4.00-5.40 normal Red Blood Count [facility] ([facility]) white blood count 6.1 10 4.0-10.0 normal White Blood Count [place] ([facility]) hematocrit 47.1 % 36.0-47.0 Above high normal Hematocrit [place] ([facility]) mean corpuscular volume 92.9 fL 80.0-96.0 normal Mean Corpusc ular Volume [place] ([facility]) mean corpuscular hemoglobin 31.4 pg 27.0-33.0 normal Mean Corpuscular Hemoglobin [place] ([facility]) mean corpuscular HGB conc 33.8 g/dL 32.0-36.5 normal Mean Corpu scular HGB Conc [place] ([facility]) neutrophils % 48.0 % 36.0-66.0 normal Neutrophils % [place] ( [facility]) lymph % 37.9 % 24.0-44.0 normal Lymph % [place] ([facility]) platelet count, automated 274 10 150-450 normal Platelet C ount, Automated [place] ([facility]) red cell distribution width 12.8 % 11.5-14.5 normal Red Cell Distribution Width [place] ([facility]) mono % 9.5 % 0.0-5.0 Above high normal [place] % [place] ([facility]) baso % 1.0 % 0.0-1.0 normal Baso % [place] ([facility]) eos % 3.3 % 0.0-3.0 Above high normal Eos % [place] ([facility]) immature granulocyte % 0.3 % 0-3.0 normal Immature Gran ulocyte % [place] ([facility]) nucleated red blood cell % 0.0 % 0-0 normal Nucleated Red Blood Cell % [place] ([facility]) lymph # 2.3 10 1.5-5.0 normal Lymph # [place] ([facility]) mono # 0.6 10 0.0-0.8 normal Winston # [place] ([facility]) neutrophils # 2.9 10 1.5-8.5 normal Neutrophils # [place] ( [facility]) baso # 0.1 10 0.0-0.2 normal Baso # [place] ([facility]) eos # 0.2 10 0.0-0.5 normal Eos # [place] ([facility]) ID Date Data Source [id number], GC & TRICH AMP 06/22/2020 12:00:00 AM EST eCW1 ([facility]) Name Value Range Interpretation Code Description Data Sulema rce(s) Supporting Document(s) NOT DETECTED NEGATIVE eCW1 ([facility]) ID Date Data Source [id number] 05/31/2020 01:04:00 PM EST [place] ([facility]) Name Value Range Interpretation Code Description Data Sulema rce(s) Supporting Document(s) ID Date Data Source [id number] 05/17/2020 02:40:00 PM EST [place] ([facility]) Name Value Range Interpretation Code Description Data Sulema rce(s) Supporting Document(s) HCG negative Hcg [place] ([facility]) ID Date Data Source [id number] 05/17/2020 02:40:00 PM EST [place] ([facility]) Name Value Range Interpretation Code Description Data Sulema rce(s) Supporting Document(s) HCG negative Hcg [place] ([facility]) ID Date Data Source [id number] 05/17/2020 02:40:00 PM EST [place] ([facility]) Name Value Range Interpretation Code Description Data Sulema rce(s) Supporting Document(s) HCG negative Hcg [place] ([facility]) ID Date Data Source [id number] 05/17/2020 02:40:00 PM EST [place] ([facility]) Name Value Range Interpretation Code Description Data Sulema rce(s) Supporting Document(s) HCG negative Hcg [place] ([facility]) ID Date Data Source [id number] 05/17/2020 02:40:00 PM EST [place] ([facility]) Name Value Range Interpretation Code Description Data Sulema rce(s) Supporting Document(s) HCG negative Hcg [place] ([facility]) ID Date Data Source [id number] 02/12/2020 02:44:00 PM EDT [facility] [address] [place] [address] PHONE: [phone] FAX: [phone] [facility] .................. : [facility].. : [id number] ROOM. ................. : Number ................... : [id number] Stay type ............. : O/P Discharge Date......... ... : 02/11/20 Admit Date .... ..... : 02/11/20 Admit Phys .................... : KEYUR RENTERIA Date of ....... : 1995 Family Phys ................... : [employer] Phone .................. : [phone] Age ................................ : 24 Film# .................. .:[id number] Sex ................................. : F Unsigned transcriptions are preliminary reports and do not represent a medical or legal document PELVIC [id number] COMPLETE:02/11/20 11:39 B [id number] (REASON FOR PELVIS: LLQ PAIN; URGENT NEED TO URINATE PELVIC ULTRASOUND: HISTORY: Left lower quadrant pain. Urgent need to urinate. FINDINGS: The uterus is normal in size and echogenicity. Endometrial thickness is 0.6 cm. The myometrium is normal. The adnexal structures are intact. IMPRESSION: Normal examination. Electronically Reviewed and Signed By Garo Ennis MD , 02/12/20 14:44, MRA Transcribe Initials: MARVA , Transcribe Date: 02/11/20 15:04, Dictation Date: Copy for: KEYUR BRASHER via fax Copy for: [address] [place] [address] Page 1 of 1 Name Value Range Interpretation Code Description Data Sulema rce(s) Supporting Document(s) ID Date Data Source [id number] 02/12/2020 01:46:37 PM EDT [facility] Initial Intake Chief ComplaintdepoMedica tion Requests:Requested Medication: Depo-ProveraCustomlist: No Charge or Patient StockAssociated Diagnosis: Encounter for surveillance of injectable contraceptiveMed Requested by: Robin Marroquin MD Start Date: 02/12/2020Stop Date: 02/12/2020Instructions: inject 1ml monthyMedication Administrations:Administered Medication: Depo- ProveraAdministered by: Octavia Temple LPN Route: INTRAMUSCULARSite: Left DeltoidMfr: OTHERLot Number: [id number]: 2Amt. Given: 1Units: mLStart Time: 13:48Stop Time: 13:48Comments: administered without complicationsAssessment & Plan Orders:[id number] Vst-Est Level I [CPT-52452] IM or SQ Injection [CPT-28249] URINE TEST [CPT-04474] Labs In-House Urine TestsDate/Time Collected: February 12, 2020 1:47 PMDate/Time Received: February 12, 2020 1:47 PMTest Result Reference Range Normal ValueUrine HCG: negative NegativeOctavia Temple LPN, February 12, 2020 1:47 PM Name Value Range Interpretation Code Description Data Sulema rce(s) Supporting Document(s) ID Date Data Source [id number] 02/12/2020 01:46:37 PM EDT [facility] Name Value Range Interpretation Code Description Data Sulema rce(s) Supporting Document(s) PREG [facility] ID Date Data Source [id number] 02/03/2020 01:38:00 PM EDT [facility] Name Value Range Interpretation Code Description Data Sulema rce(s) Supporting Document(s) HCT 45.8 % 36.0-47.0 N [facility] HGB 14.8 g/dL 12.0-15.5 N [facility] MCH 32.3 G/DL pg 32.0-36.5 N [facility] MCHC 30.0 PG % 27.0-33.0 N [facility] PLATELETS 267 10 10*3/mm3 150-450 N [facility] RBC 4.93 10 10*6/mm3 4.00-5.40 N [facility] RDW 12.8 % 11.5-14.5 N [facility] WBC TOTAL 4.4 4.0-10.0 N [facility] ID Date Data Source [id number] 02/03/2020 01:38:00 PM EDT [facility] Name Value Range Interpretation Code Description Data Sulema rce(s) Supporting Document(s) BG FASTING 79 mg/dL 70-100 N [facility] ID Date Data Source [id number] 02/03/2020 12:49:41 PM EDT [facility] Measurements & CalculationsHeight: 65.50 inches 166.37 cm 5 ft. 5.5 in.Weight: 234 pounds 13 oz. 106.73 kg Body Mass Index (BMI): 38.62BMI Interpretation: ObeseBody Surface Area (BSA): 2.13Weight Management Education Done (Nutrition/Physical Activity)Vital SignsTemperature: 98.0F oral Pulse Rate: 81 beats/minuteRespiratory Rate: 16 respirations/minuteBlood Pressure: 118/70 right arm sitting automaticO2 Saturation: 100% Vital Signs performed by: Octavia Temple LPN, February 03, 2020 12:50 PMInitial Intake Information From: patientRoom #: 10Infectious Disease / Travel ScreeningRecent travel for you or any close contacts? NoHave you had any close contact with anyone diagnosed with or under investigation for COVID-19 (coronavirus)? NoFever? NoRespiratory symptoms: cough, cold, congestion, shortness of breath, difficulty breathing? NoLoss of smell? NoLoss of taste? NoSmoking, Tobacco, Vaping or Smoke Exposure StatusSmoke Status: current every day smokerTobacco Use: YesAdv to Quit: YesDo you vape? NoMenstrual HistoryAny possibility of ? NoHealthcare HistorySince your last office visit...Have you been admitted to the hospital? NoHave you been to an emergency room (ER) or urgent care clinic? NoHave you seen another healthcare provider? NoHave you seen a dentist? NoIntake performed by: Octavia Temple LPN, February 03, 2020 12:51 PMScreening, Brief Intervention, & Referral to Treatment (SBIRT)Pre- Screening Questions How many times have you have 4 or more drinks in a day? 0How many times have you used an illegal drug or used a prescription medication for a non-medical reason? 0Performed by: Octavia Temple LPN, February 03, 2020 12:51 PMPatient History Medical History:TransgenderBorderline Personality DisorderHypothyroidSurgical History:tonsils removedwisdom teethFamily History:Mothers side- Diabetes, CancerHypertension (Father)Father- StentsBoth S ides of Family- DepressionSocial/Personal History: Age of First Use: 12Advised to Quit/Tobacco Education: YesChief Complaintf/u HRTHistory of Present Illness (HPI)Telemedicine visit with patient's location at [facility] and provider's location at offsite office. Additional person(s)participating in the visit: n/a. Pt here today for follow up visit for HRT. Pt's gender identity is male/man. Pt prefers to go by he. Pt is fully living as his identified gender. Pt is living as identified gender at home, work, school, and social. Pt is currently seeing a mental health provider and receiving counseling regularly. Sex assigned at is female. Patient's legal sex is female. The has been managed on Testosterone 0.25mL weekly. Associated symptoms include voice deepening, facial hair is coming in more coarse, mood in general has been better, less angry than usual. Feeling good on his current dose of Testosterone. 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 +CAD in her family and pt is a smoker.Wants to get on control, is sexually active with a male partner. Has been on Depo in the past wihtout issues.HPI performed by: Dilcia SILVA, February 03, 2020 12:56 PMProblem ReviewProblem List was reviewed and/or updated during this visit.Medication Reconciliation & ReviewMedication List was reviewed and/or updated during this visit, including review of any tdhb-kkf-gwaglcw medications, herbal therapies, and/or supplements.Allergy ReviewAllergy List was reviewed and/or updated during this visit.Adult Preventive CareProvider Calculated and Reviewed all Clinical Protocols for patient today. Screening Tobacco Screening: Smoking Status: current every day smoker (02/03/2020) Tobacco Use: Currently (02/03/2020) Advised to Quit: Yes (02/03/2020)Labs/Meds/Other Counseling-Nutrition and Physical Activity:BMI Interpretation: Obese (02/03/2020) Counseling: Done (02/03/2020) Physical Activity: Done (02/03/2020)Review of Systems General: Denies chills, fever, feeling ill, sweats, night sweats. Cardiovascular: Denies chest pain, palpitations. Respiratory: Denies shortness of breath. Genitourinary: Complains of absence of menstrual period. Denies heavy menstrual period, prolonged menstrual period, pelvic pain, abnormal vaginal bleeding. P sychiatric: Complains of anxiety. Denies depression, feeling stressed. Physical ExamGeneral Appearance: well nourished, well hydrated, no acute distressEyes, External: conjunctivae and lids normal, EOMIHearing: grossly intactRespiratory, Effort: no intercostal retractions or use of accessory musclesGait & Station: normalOrientation: oriented to time, place, and personMood & Affect: no depression, anxiety, or agitationJudgment & Insight: intactMemory: intact for recent and remote eventsAssessment & Plan Problems:Added: Encounter for surveillance of injectable contraceptive (KUG17-I9 0.42) Assessment: Instructions: Your prescriptions have been sent to your preferred pharmacy electronically, please take them as prescribed and report any significant side effects. Please call to make a nurse visit appt for your Depo shot every 12 weeks.Encounter for surveillance of injectable contraceptive (DFY48-O12.42) Assessment: Advised pt start Depo. Discussed safe sex practices with patient. The patient understands the ways to reduce risk in sexual encounters. This includes condom use.Assessed:Hormone replacement therapy (ICD- V07.4) (TZF96-C06.890) Assessment: Instructions: You have had blood work or a urine sample taken today. We will notify you within 7 days of any abnormal results. If everything is normal, you will not hear from us. You can check the portal or call if you want as well.Hormone replacement therapy (ICD-V07.4) (VAA21-Q08.890) Assessment: Pt stable on current dose of Testoserone. No side effects. CPM and RTC in 3 months for follow up and labs.Patient Instruct ions/Care Plan: Hormone replacement therapy: You have had blood work or a urine sample taken today. We will notify you within 7 days of any abnormal results. If everything is normal, you will not hear from us. You can check the portal or call if you want as well.Encounter for surveillance of injectable contraceptive: Your prescriptions have been sent to your preferred pharmacy electronically, please take them as prescribed and report any significant side effects. Please call to make a nurse visit appt for your Depo shot every 12 weeks. Plan developed in collaboration with patient and/or familyMedications:DEPO-PROVERA 150 MG/ML IM SUSPFLUOXETINE HCL (PMDD) 20 MG ORAL TABLETMACROBID 100 MG ORAL CAPSULEMONTELUKAST SODIUM 10 MG ORAL TABLETPERPHENAZINE 2 MG ORAL TABLETBD LUER- KIERA SYRINGE 25G X 5/8" 1 MLTESTOSTERONE CYPIONATE 200 MG/ML INTRAMUSCULAR SOLUTIONLEVOTHYROXINE SODIUM 112 MCG ORAL TABLETMedication Changes:Refilled:TESTOSTERONE CYPIONATE 200 MG/ML INTRAMUSCULAR SOLUTION-Inject 0.25mL weekly CODE F Qty: 4[Milliliter] Refills: 0 Method: ElectronicNew Prescription:DEPO-PROVERA 150 MG/ML IM SUSP-Give IM x 1 Qty: 1[Milliliter] Refills: 3 Method: ElectronicAllergies:* WALNUTS (Critical)Orders:COMP METABOLIC PANEL [CPT-57953] CBC W/DIFF [CPT-40027] Estradiol [CPT-98546] TESTOSTERONE TOTAL [CPT-32895] Office Visit - Established, Level 4 [CPT-16161TP] Follow-Up Return to clinic: 3 months for follow up Clinical Visit Summary CompletedMedications:TESTOSTERONE CYPIONATE 200 MG/ML INTRAMUSCULAR SOLUTION (TESTOSTERONE CYPIONATE) Inject 0.25mL weekly CODE F #4[Milliliter] x 0 Route:INTRAMUSCULAR Entered and Authorized by: Dilcia SILVA Method used: Electronically to [facility] (retail) [address] [place] [address] [id number] Note to Pharmacy: Route: IM; RxID: [id number] 150 MG/ML IM SUSP (MEDROXYPROGESTERONE ACETATE) Give IM x 1 #1[Milliliter] x 3 Route:INTRAMUSCULAR Entered and Authorized by: Dilcia SILVA Method used: Electronically to [facility]* (retail) [address] [place] [address] [phone] Note to Pharmacy: Route: INTRAMUSCULAR; RxID: [id number] signed by Dilcia SILVA on 02/03/2020 at 3:51 PM Name Value Range Interpretation Code Description Data Sulema rce(s) Supporting Document(s) ID Date Data Source [id number] 01/14/2020 02:15:00 PM EDT [facility] Name Value Range Interpretation Code Description Data Sulema rce(s) Supporting Document(s) URINECULTRTN EXTD BRD SPCTRM BETA LACTAMASE IV NE GATIVE FOR ESBL [facility] ID Date Data Source [id number] 01/14/2020 01:36:15 PM EDT [facility] Measurements & CalculationsHeight: 65.5 inches 166.37 cm Weight: 236.0 pounds 107.27 kg Body Mass Index (BMI): 38.81BMI Interpretation: ObeseBody Surface Area (BSA): 2.14Weight Management Education Done (Nutrition/Physical Activity)Vital SignsTemperature: 96.6F 35.89C tympanic Pulse Rate: 72 beats/minuteRespiratory Rate: 16 respirations/minuteBlood Pressure: 110/74 left arm sitting O2 Saturation: 99% room airVital Signs performed by: Lizbeth Hernandez , January 14, 2020 1:46 PMVital Signs performed by: Sudheer MARTINEZ, January 14, 2020 2:05 PMLabs In-House Urine TestsDate/Time Collected: January 14, 2020 2:32 PMDate/Time Received: January 14, 2020 2:32 PMTest Result Reference Range Normal ValueRoutine Urinalysis Color: yellow Yellow Appearance: cloudy Clear Leukocytes: negative Negative Nitrite: positive Negative Urobilinogen: negative Negative Protein: 1+ Negative pH: 7.5 5.0-6.5 Blood: 1+ Negative Specific [place]: 1.015 1.020>=1.030 Ketone: negative Negative Bilirubin: negative Negative Glucose: negative Mookie Hernandez , January 14, 2020 2:32 PMInitial Intake Information From: patientRoom #: 1Infectious Disease / Travel ScreeningRecent travel for you or any close contacts? NoHave you had any close contact with anyone diagnosed with or under investigation for COVID-19 (coronavirus)? NoFever? NoRespiratory symptoms: cough, cold, congestion, shortness of breath, difficulty breathing? NoLoss of smell? NoLoss of taste? NoSmoking, Tobacco, Vaping or Smoke Exposure StatusSmoke Status: current every day smokerTobacco Use: YesAdv to Quit: YesDo you vape? NoPassive Smoke Exposure: YesPassive Smoke Exposure comments: outside Menstrual HistoryComments: testosterone-3 x in one month since before getting -Healthcare HistorySince your last office visit...Have you been admitted to the hospital? NoHave you been to an emergency room (ER) or urgent care clinic? Yes - urgent care -std testing-Emergency room (ER) or urgent care date reported today: 12/17/2019Have you seen another healthcare provider? NoHave you seen a dentist? NoIntake performed by: Lizbeth Hernandez , January 14, 2020 1:42 PMRate Your HealthIn general, would you say your health is? FairPain AssessmentAre you currently having any pain which... You would like your provider to address? No Affects your activity level? NoDepression Screening - PHQ-2Over the last two weeks, have you... Had little interest or pleasure in doing things? Not at all Been feeling down, depressed, or hopeless? Not at all PHQ-2 Score: 0Anxiety Screening - GABRIEL-2Over the last two weeks, have you been... Feeling nervous, anxious, or on edge? Not at all Unable to stop or control worrying? Not at all GABRIEL-2 Score: 0Food InsecurityWithin the past year...Did you worry whether your food would run out before you got money to buy more? NoWas there a time when the food you bought didn't last and you didn't have money to get more? NoNurses Note would like std testing -was recently treated for chlymidia-no symptoms until after finishing antibiotics-have not had sex since finishing antibioticsthink might have uti pressure- have to go then nothing comes when go to bathroom x1 weekpain in side x 3 weeksPatient History Medical History:TransgenderBorderline Personality DisorderHypothyroidSurgical History:tonsils removedwisdom teethFamily History:Mothers side- Diabetes, CancerHypertension (Father)Father- StentsBoth Sides of Family- DepressionSocial/Personal History: Age of First Use: 12Advised to Quit/Tobacco Education: YesChief Complaintpain inleft side-usually discomfort but does get to point where it is difficult to walkHistory of Present Illness (HPI)Pt is 24 y/o transgender male, presents for UTI concerns.Tested positive for chlamydia beginning of December 2019, via urine at an urgent care. Then two days after taking antibiotics, she began having UTI symptoms. Now has urgency. This has been going on since Mid December. She previously had zero symptoms of the chlamydia. States partner was tested prior to him and was negative, patient has been monogamous x 5 years. Has been on testosterone for 2 months. Now feels he has to push harder to urinate, but admits genitals are changing since starting testosterone. Sees Dilcia again later this month for 3 month evaluation. Reports ongoing LLQ pain, denies constipation, diarrhea. HPI performed by: Sudheer MARTINEZ, January 14, 2020 2:05 PMTransitions of Care InboundProblem ReviewProblem List was reviewed and/or updated during this visit.Medication Reconciliation & ReviewMedication List was reviewed and/or updated during this visit, including review of any sken-jxq-vdxxbaf medications, herbal therapies, and/or supplements.Allergy ReviewAllergy List was reviewed and/or updated during this visit.Adult Preventive CareProvider Calculated and Reviewed all Clinical Protocols for patient today. Screening Tobacco Screening: Smoking Status: current every day smoker (01/14/2020) Tobacco Use: Currently (01/14/2020) Advised to Quit: Yes (01/14/2020)Labs/Meds/Other Counseling-Nutrition and Physical Activity:BMI Interpretation: Obese (01/14/2020) Counseling: Done (01/14/2020) Physical Activity: Done (01/14/2020)Cancer Screening Pap Smear/HPV TestingReviewed: Previous Comments: Pt states she had on in 2019 (12/17/2019)Today's Comments: believes she hasn't had one since giving birthReview of Systems General: Denies loss of appetite, chills, dizziness, fatigue, fever, feeling ill. Gastrointestinal: Complains of see HPI, pain or discomfort. Denies nausea, vomiting, diarrhea, constipation, change in bowel habits, blood in stool, black or tarry stools. Genitourinary: Complains of see HPI, urinary urgency. Denies urinary incontinence, burning with urination, blood in urine, pelvic pain. Skin: Denies rash, redness, itching. Physical ExamGeneral Appearance: well nourished, well hydrated, no acute distressEyes, External: conjunctivae and lids normal, EOMIRespiratory, Auscultation: clear to auscultation bilaterally; no rales, rhonchi, or wheezesCardiovascular, Auscultation: S1, S2 audible; no murmur, rub, or gallop; RRRAbdomen: soft, mild tenderness to low LLQ palpation, no masses, bowel sounds normal, no rebound or guardingGait & Station: normalOrientation: oriented to time, place, and personJudgment & Insight: intactCare Management Plan Transitions of CareInboundRate Your HealthIn general, would you say your health is? FairAssessment & Plan Problems:Added: Urgent desire to urinate (ICD-788.63) (FAP12-Z42.15) Assessment: Instructions: Urinalysis in the offiice today. Urine was sent for culture today, we will call you if antibiotic needs to be started or changed based on culture. Stay well hydrated, empty bladder fully and frequently. Follow-up sooner for worsening symptoms, or ER for severe pain, back pain, fever, vomiting.Screening examination for venereal disease (ICD- V74.5) (NBH72-Z03.3) Assessment: Instructions: Repeat testing on urine sample from today. We will call you with results.Acute cystitis with hematuria (ICD-595.0) (BDK88-P94.01) Assessment: Instructions: Start Macrobid twice daily x 7 days. Take antibiotics as prescribed, finish full course even if symptoms resolve. Antibiotics may cause stomach upset, recommend eating yogurt or taking probiotic while on antibiotics. Urine was sent for culture today, we will call you if antibiotic needs to be started or changed based on culture. Stay well hydrated, empty bladder fully and frequently. Follow-up sooner for worsening symptoms, or ER for severe pain, back pain, fever, vomiting.Left lower quadrant pain (ICD-789.04) (QWX57-V31.32) Assessment: Instructions: Ultrasound to assess further.Removed:Infection following other infusion, transfusion and therapeutic injection, subsequent encounter (URK39-I76.29xD), test finding (MJJ42-U57.00)Patient Instructions/Care Plan: Urgent desire to urinate: Urinalysis in the offiice today. Urine was sent for culture today, we will call you if antibiotic needs to be started or changed based on culture. Stay well hydrated, empty bladder fully and frequently. Follow-up sooner for worsening symptoms, or ER for severe pain, back pain, fever, vomiting.Screening examination for venereal disease: Repeat testing on urine sample from today. We will call you with results.Acute cystitis with hematuria: Start Macrobid twice daily x 7 days. Take antibiotics as prescribed, finish full course even if symptoms resolve. Antibiotics may cause stomach upset, recommend eating yogurt or taking probiotic while on antibiotics. Urine was sent for culture today, we will call you if antibiotic needs to be started or changed based on culture. Stay well hydrated, empty bladder fully and frequently. Follow-up sooner for worsening symptoms, or ER for severe pain, back pain, fever, vomiting.Left lower quadrant pain: Ultrasound to assess further. Plan developed in collaboration with patient and/or familyMedications:MACROBID 100 MG ORAL CAPSULEMONTELUKAST SODIUM 10 MG ORAL TABLETPERPHENAZINE 2 MG ORAL TABLETBD LUER-KIERA SYRINGE 25G X 5/8" 1 MLTESTOSTERONE CYPIONATE 200 MG/ML INTRAMUSCULAR SOLUTIONLEVOTHYROXINE SODIUM 112 MCG ORAL TABLETMedication Changes:New Prescription:MACROBID 100 MG ORAL CAPSULE-Take 1 capsule po BID Qty: 14[Capsule] Refills: 0 Method: Elect Dunia:* ANNIA (Critical)Orders:Urinalysis-automated [CPT-52259] Urine Culture [CPT-84496] Urine - Chlamydia [CPT-46145] Urine - Gonorrhea [CPT-16991] Ultrasound-Pelvic (non-obstetric) [CPT-46461] Adult - Ofc Vst, EST, Level III [CPT-51107] Follow-Up Return to clinic: as needed Clinical Visit Summary Completed Name Value Range Interpretation Code Description Data Sulema rce(s) Supporting Document(s) ID Date Data Source [id number] 01/14/2020 01:36:15 PM EDT [facility] Name Value Range Interpretation Code Description Data Sulema rce(s) Supporting Document(s) APPEARANCE U cloudy [facility] BILIRUBIN UR negative [facility] BLOOD UR DIP 1+ [facility] GLUCOSE, URN negative [facility] KETONES URN negative [facility] NITRITE URN positive [facility] PH URINE 7.5 [facility] PROTEIN, URN 1+ [facility] SPEC GR URIN 1.015 [facility] UA COLOR yellow [facility] UROBILINOGEN negative [facility] WBC DIPSTK U negative [facility] ID Date Data Source [id number] 12/17/2019 02:32:17 PM EDT [facility] Measurements & CalculationsHeight: 65.50 inches 166.37 cm 5 ft. 5.5 in.Weight: 238 pounds 2 oz. 108.24 kg Body Mass Index (BMI): 39.17BMI Interpretation: ObeseBody Surface Area (BSA): 2.14Weight Management Education Done (Nutrition/Physical Activity)Vital SignsTemperature: 98.1F oral Pulse Rate: 74 beats/minuteRespiratory Rate: 18 respirations/minuteBlood Pressure: 107/72 right arm sitting automaticO2 Saturation: 97% room airVital Signs performed by: Hakeem Suarez LPN, December 17, 2019 2:41 PMInitial Intake Information From: patientRoom #: 14Infectious Disease / Travel ScreeningRecent travel for you or any close contacts? NoHave you had any close contact with anyone diagnosed with or under investigation for COVID-19 (coronavirus)? NoFever? NoRespiratory symptoms: cough, cold, congestion, shortness of breath, difficulty breathing? NoLoss of smell? NoLoss of taste? NoSmoking, Tobacco, Vaping or Smoke Exposure StatusSmoke Status: current every day smokerTobacco Use: YesAdv to Quit: YesDo you vape? NoPassive Smoke Exposure: NoMenstrual HistoryLast Menstrual Period (LMP): 10/30/2019Any possibility of ? NoHealthcare HistorySince your last office visit...Have you been admitted to the hospital? NoHave you been to an emergency room (ER) or urgent care clinic? NoHave you seen another healthcare provider? Yes - [facility] perspective Have you seen a dentist? NoIntake performed by: Hakeem Suarez LPN, December 17, 2019 2:34 PMRate Your HealthIn general, would you say your health is? GoodPain AssessmentAre you currently having any pain which... You would like your provider to address? No Affects your activity level? NoDepression Screening - PHQ-2Over the last two weeks, have you... Had little interest or pleasure in doing things? Not at all Been feeling down, depressed, or hopeless? Not at all PHQ-2 Score: 0Anxiety Screening - GABRIEL-2Over the last two weeks, have you been... Feeling nervous, anxious, or on edge? Nearly every day Unable to stop or control worrying? Nearly every day GABRIEL-2 Score: 6Food InsecurityWithin the past year...Did you worry whether your food would run out before you got money to buy more? NoWas there a time when the food you bought didn't last and you didn't have money to get more? NoPatient Learning & Communication Needs Preferred learning style: by experiencePossible barriers: noneGeneralized Anxiety Disorder 7-Item Screening (GABRIEL-7)Answer Guide:0 = Not at all1 = Several days2 = Over half the days3 = Nearly every dayOver the last 2 weeks, how often have you been bothered by the following problems?Feeling nervous, anxious, or on edge: 3Not being able to stop or control worryinWorrying too much about different things: 3Trouble relaxinBeing so restless that it's hard to sit still: 3Becoming easily annoyed or irritable: 3Feeling afraid as if something awful might happen: 2Answer Guide:0 = Not difficult at all1 = Somewhat difficult2 = Very difficult3 = Extremely difficultHow difficult have these made it for you to do your work, take care of things at home, or get along with other people? 2GAD-7 Screening Results GABRIEL-2 Score: 6GAD-7 Score: 20Functional Impairment: Very difficultRecommendation: Severe anxietyScreening, Brief Intervention, & Referral to Treatment (SBIRT)Pre-Screening Questions How many times have you have 4 or more drinks in a day? 0How many times have you used an illegal drug or used a prescription medication for a non-medical reason? 0Performed by: Hakeem Suarez LPN, December 17, 2019 2:36 PMPatient History Medical History:TransgenderBorderline Personality DisorderHypothyroidSurgical History:tonsils removedwisdom teethFamily History:Mothers side- Diabetes, CancerHypertension (Father)Father- StentsBoth Sides of Family- DepressionSocial/Personal History: Age of First Use: 12Advised to Quit/Tobacco Education: YesChief Complaintinjection site redness RM 14 History of Present Illness (HPI)24 yr old female who preferrs to be identifed as a male is here today for an injection site check. PT states his injection site is red and looks like a rash. Pt states he is taking all his medicactions side effects. Pt denies pain at this time. I, Cheyanne Wood MA, am scribing for, and in the presence of, Manfred Carbajal DO.Pt has been giving herself testosterone injections. Pt states after every injection she develops a reddened rash around the injecton site. Denies SOB and chest tightness. Denies throat tightness or closing. Transitions of Care InboundProblem ReviewProblem List was reviewed and/or updated during this visit.Medication Reconciliation & ReviewMedication List was reviewed and/or updated during this visit, including review of any vajl-xew-nhvalbz medications, herbal therapies, and/or supplements.Allergy ReviewAllergy List was reviewed and/or updated during this visit.Adult Preventive CareProvider Calculated and Reviewed all Clinical Protocols for patient today. Screening Tobacco Screening: Smoking Status: current every day smoker (12/17/2019) Tobacco Use: Currently (12/17/2019) Advised to Quit: Yes (12/17/2019)Labs/Meds/Other Counseling-Nutrition and Physical Activity:BMI Interpretation: Obese (12/17/2019) Counseling: Done (12/17/2019) Physical Activity: Done (12/17/2019)Cancer Screening Pap Smear/HPV TestingReviewed: Today's Comments: Pt states she had on in 2019Review of Systems General: Denies loss of appetite, chills, dizziness, fatigue, fever, continued fever, headache, feeling ill, sweats, night sweats, sleep disturbances, weight loss. Cardiovascular: Denies chest pain, palpitations, feeling faint, trouble breathing w/exertion, SOB upon lying down, SOB at night, peripheral edema, elevated blood pressure, decreased heart rate. Respiratory: Denies cough, di fficulty breathing, shortness of breath, excessive sputum, coughing up blood, wheezing, chest pain. Skin: Complains of rash. Physical ExamGeneral Appearance: well nourished, well hydrated, no acute distressRespiratory, Auscultation: clear to auscultation bilaterally; no rales, rhonchi, or wheezesRespiratory, Effort: no intercostal retractions or use of accessory musclesGait & Station: normalSkin, Inspection: sl circular mac rash 8 cm wide, fadingOrientation: oriented to time, place, and personMood & Affect: no depression, anxiety, or agitationJudgment & Insight: intactCare Management Plan Transitions of CareInboundRate Your HealthIn general, would you say your health is? GoodAssessment & Plan Problems:Added: Infection following other infusion, transfusion and therapeutic injection, subsequent encounter (ICD10- T80.29xD)Assessment not SavedHormone replacement therapy (KFI19-S88.890): add singulairMedications:MONTELUKAST SODIUM 10 MG ORAL TABLETPERPHENAZINE 2 MG ORAL TABLETBD LUER-KIERA SYRINGE 25G X 5/8" 1 MLTESTOSTERONE CYPIONATE 200 MG/ML INTRAMUSCULAR SOLUTIONLEVOTHYROXINE SODIUM 112 MCG ORAL TABLETMedication Changes:Refilled:TESTOSTERONE CYPIONATE 200 MG/ML INTRAMUSCULAR SOLUTION-Inject 0.25mL weekly CODE F Qty: 4[Milliliter] Refills: 0 Method: ElectronicNew Prescription:MONTELUKAST SODIUM 10 MG ORAL TABLET-one tab po QD prior to shot Qty: 30[Tablet] Refills: 3 Method: ElectronicAllergies:* WALNUTS (Critical)Orders:Adult - Ofc Vst, EST, Level III [CPT-01488] Name Value Range Interpretation Code Description Data Sulema rce(s) Supporting Document(s) ID Date Data Source [id number] 12/17/2019 01:04:00 PM EDT [facility] ([facility]) Name Value Range Interpretation Code Description Data Sulema rce(s) Supporting Document(s) HIV 1+2 Ab [Presence] in Serum Laboratory test result [facility] ([facility]) <content>This assay was performed utiliz ing a chemiluminescent</content>
<content>principle technique for the simultaneous qualitative</content>
<content>detection of HIV-1 p24 antigen & antibodies to HIV-1</content>
<content>(including group O) & HIV-2 using the Siemens Centaur XP</content>
<content>system.</content>
<content>The estimated 95% confidence interval for sensitivity of</content>
<content>this antigen/antibody combination assay for HIV-1&2</content>
<content>antibodies is 99.7-100% and HIV p24 antigen is 89.4-99.9%.</content>
<content>The estimated 95% confidence interval for specificity of</content>
<content>this antigen/antibody combination in low risk populations is</content>
<content>99.6-99.8%.</content>
<content></content> Reagin Ab [Presence] in Serum by RPR Laboratory test result [facility] ([facility]) ID Date Data Source [id number] 12/17/2019 12:44:00 PM EDT [facility] ([facility]) Name Value Range Interpretation Code Description Data Sulema rce(s) Supporting Document(s) Chlamydia Dna Amplification Laboratory test result [facility] ([facility]) treated by Christian. See Progress note. GC Dna Amplification Laboratory test result [facility] ([facility]) treated by Christian. See Progress note. ID Date Data Source [id number] 12/17/2019 12:44:00 PM EDT [facility] ([facility]) Name Value Range Interpretation Code Description Data Sulema rce(s) Supporting Document(s) Bacteria identified in Urine by Culture Laboratory [facility] treated by Christian. See Progress note. ID Date Data Source [id number] 11/30/2019 01:41:00 PM EDT [facility] Name Value Range Interpretation Code Description Data Sulema rce(s) Supporting Document(s) ID Date Data Source [id number] 11/11/2019 01:15:00 PM EDT [facility] Name Value Range Interpretation Code Description Data Sulema rce(s) Supporting Document(s) HGBA1C 5.1 % N [facility] ID Date Data Source [id number] 11/11/2019 01:15:00 PM EDT [facility] Name Value Range Interpretation Code Description Data Sulema rce(s) Supporting Document(s) HCT 42.3 % 36.0-47.0 N [facility] HGB 14.2 g/dL 12.0-15.5 N [facility] MCH 33.6 G/DL pg 32.0-36.5 N [facility] 30.9 PG % 27.0-33.0 N [facility] PLATELETS 292 10 10*3/mm3 150-450 N [facility] RBC 4.59 10 10*6/mm3 4.00-5.40 N [facility] RDW 12.5 % 11.5-14.5 N [facility] WBC TOTAL 6.7 4.0-10.0 N [facility] ID Date Data Source [id number] 11/11/2019 01:15:00 PM EDT [facility] Name Value Range Interpretation Code Description Data Sulema rce(s) Supporting Document(s) BG FASTING 66 mg/dL 70-100 L [facility] ID Date Data Source [id number] 11/11/2019 12:15:59 PM EDT [facility] Measurements & CalculationsHeight: 65.50 inches 166.37 cm 5 ft. 5.5 in.Weight: 241.8 pounds 109.91 kg Body Mass Index (BMI): 39.77BMI Interpretation: ObeseBody Surface Area (BSA): 2.16Weight Management Education Done (Nutrition/Physical Activity)Vital SignsTemperature: 97.1F 36.17C tympanic Pulse Rate: 76 beats/minuteRespiratory Rate: 16 respirations/minuteBlood Pressure: 112/72 left arm sitting automaticVital Signs performed by: Lalita Torres , November 11, 2019 12:24 PMVital Signs performed by: Lalita Torres , November 11, 2019 12:24 PMInitial Intake Information From: patientRoom #: 11Infectious Disease / Travel ScreeningRecent travel for you or any close contacts? NoHave you had any close contact with anyone diagnosed with or under investigation for COVID-19 (coronavirus)? NoFever? NoRespiratory symptoms: cough, cold, congestion, shortness of breath, difficulty breathing? NoLoss of smell? NoLoss of taste? NoSmoking, Tobacco, Vaping or Smoke Exposure StatusSmoke Status: current every day smokerTobacco Use: YesAdv to Quit: YesDo you vape? NoPassive Smoke Exposure: YesMenstrual HistoryAny possibility of ? NoHealthcare HistorySince your last office visit...Have you been admitted to the hospital? NoHave you been to an emergency room (ER) or urgent care clinic? NoHave you seen another healthcare provider? NoHave you seen a dentist? NoIntake performed by: Lalita Torres , November 11, 2019 12:20 PMRate Your HealthIn general, would you say your health is? FairPain AssessmentAre you currently having any pain which... You would like your provider to address? No Affects your activity level? NoDepression Screening - PHQ-2Over the last two weeks, have you... Had little interest or pleasure in doing things? Not at all Been feeling down, depressed, or hopeless? Not at all PHQ-2 Score: 0Anxiety Screening - GABRIEL-2Over the last two weeks, have you been... Feeling nervous, anxious, or on edge? Not at all Unable to stop or control worrying? Not at all GABRIEL-2 Score: 0Screening, Brief Intervention, & Referral to Treatment (SBIRT)Pre-Screening Questions How many times have you have 4 or more drinks in a day? 0How many times have you used an illegal drug or used a prescription medication for a non- medical reason? 0Performed by: Lalita Torres , November 11, 2019 12:21 PMPatient History Medical History:TransgenderBorderline Personality DisorderHypothyroidSurgical History:tonsils removedwisdom teethFamily History:Mothers side- Diabetes, CancerHypertension (Father)Father- StentsBoth Sides of Family- DepressionSocial/Personal History: Age of First Use: 12Advised to Quit/Tobacco Education: YesChief Complaintfollow-up visit- testosterone, thyroidHistory of Present Illness (HPI)Telemedicine visit with patient's location at [facility] and provider's location at offsite office. Additional person(s)participating in the visit: n/a. Pt would like to discuss TSH labs, labs discussed with pt.Pt here today for initial visit for HRT. Pt's gender identity is male/man. Pt prefers to go by he. Pt is fully living as his identified gender. Pt is living as identified gender at home, work, school, and social. Pt is currently seeing a mental health provider and receiving counseling regularly. Sex assigned at is female. Patient's legal sex is female. The following organs is/are present uterus, vagina, cervix, and ovaries.No new partners since last visit. +CAD in her family and pt is a smoker.Pt has one non-binary bioloigcally female partner.HPI performed by: Dilcia SILVA, November 11, 2019 12:26 PMProblem ReviewProblem List was reviewed and/or updated during this visit.Medication Reconciliation & ReviewMedication List was reviewed and/or updated during this visit, including review of any [id number] medications, herbal therapies, and/or supplements.Allergy ReviewAllergy List was reviewed and/or updated during this visit.Adult Preventive CareProvider Calculated and Reviewed all Clinical Protocols for patient today. Immunizations Influenza Vaccine: #1: Not Given: Patient states vaccine was given by employer (11/11/2019) #2: Screening Tobacco Screening: Smoking Status: current every day smoker (11/11/2019) Tobacco Use: Currently (11/11/2019) Advised to Quit: Yes (11/11/2019)Labs/Meds/Other Counseling-Nutrition and Physical Activity:BMI Interpretation: Obese (11/11/2019) Counseling: Done (11/11/2019) Physical Activity: Done (11/11/2019)Review of Systems General: Denies chills, fatigue, fever, headache, feeling ill, sweats, night sweats. Psychiatric: Denies depression, anxiety, feeling stressed. Physical ExamGeneral Appearance: well nourished, well hydrated, no acute distressEyes, External: conjunctivae and lids normal, EOMIHearing: grossly intactRespiratory, Effort: no intercostal retractions or use of accessory musclesGait & Station: normalOrientation: oriented to time, place, and personMood & Affect: Psychiatric exam: Appearance: Neat, well groomed, tiredAffect: WorriedMood: AnxiousThought content: No SI/ HI/ delusionThought processes: Organized,Judgement: FairInsight: FairJudgment & Insight: intactRate Your HealthIn general, would you say your health is? FairAssessment & Plan Problems:Added: Hormone replacement therapy (ICD-V07.4) (XHZ70-E94.890) Assessment: Instructions: You have had blood work or a urine sample taken today. We will notify you within 7 days of any abnormal results. If everything is normal, you will not hear from us. You can check the portal or call if you want as well. Please have Darling send me a letter of support to start HRT.Hormone replacement therapy (ICD-V07.4) (DTW04-D09.890) Assessment: Discussed risks, benefits, and SE of masculinizing HRT. Pt needs letter of support from and needs to sign infomred consent then get baseline blood work first. He v/u and wishes to proceed.Assessed:Disorder of thyroid, unspecified (MQS85-X97.9) Assessment: Discussed lab results. Will recheck TSH in 3 months. Sublicnical off meds.Patient Instructions/Care Plan: Hormone replacement therapy: You have had blood work or a urine sample taken today. We will notify you within 7 days of any abnormal results. If everything is normal, you will not hear from us. You can check the portal or call if you want as well. Please have Darling send me a letter of support to start HRT. Plan developed in collaboration with patient and/or familyMedications:NEURONTIN 300 MG ORAL CAPSULELEVOTHYROXINE SODIUM 112 MCG ORAL TABLETAllergies:* ANNIA (Critical)Orders:COMP METABOLIC PANEL [CPT-05566] CBC W/DIFF [CPT-39704] HgBA1c [CPT-13996] LIPID PANEL [CPT-70645] Estradiol [CPT-08479] TESTOSTERONE TOTAL [CPT-12204] 93507 - Venipuncture [CPT-97227] Office Visit - Established, Level 4 [CPT-62958MQ] Follow-Up Return to clinic: 3 months for follow up of HRT Clinical Visit Summary CompletedVaccines Administered/Entered:Vaccination Group: InfluenzaHistorical Source: Historical information - from other providerSeries: 1 NOT GIVENVaccination: Flucelvax Quadrivalent PF (4y+) AdultReason Not Given: Patient states vaccine was given by employerEntered Date: 11/11/2019 12:00 AMEntered by: Lalita Torres In-House Blood TestsDate/Time Collected: November 11, 2019 2:16 PMTest Result Reference Range Normal ValueComments: blood draw done in office.Michela Yesica, November 11, 2019 2:16 PM Name Value Range Interpretation Code Description Data Sulema rce(s) Supporting Document(s) ID Date Data Source [id number] 11/02/2019 03:45:00 PM EDT [facility] Name Value Range Interpretation Code Description Data Sulema rce(s) Supporting Document(s) T4, FREE 1.00 ng/dL 0.76-1.46 N [facility] TSH 4.070 microintl units/mL 0.358-3.740 H [facility] Procedure Social History Code Duration Value Status Description Data Source(s ) Smoking 07/22/2020 12:00:00 AM EST Current Smoker completed Curre nt Smoker eCW1 ([facility]) Smoking 06/22/2020 12:00:00 AM EST Current Smoker completed Curre nt Smoker eCW1 ([facility]) Smoking 06/22/2020 12:00:00 AM EST Current Smoker completed Curre nt Smoker eCW1 ([facility]) Vital Signs ID Date Data Source UNK Name Value Range Interpretation Code Description Data Source(s) Diastolic blood pressure 72 mm[Hg] 72 mm[Hg] eCW1 ([facility]) Systolic blood pressure 108 mm[Hg] 108 mm[Hg] e CW1 ([facility]) Body mass index (BMI) [Ratio] 38.77 kg/m2 38.77 kg/m2 W1 ([facility]) Body height 65 [in_i] 65 [in_i] W1 ([facility]) Body weight 233 [lb_av] 233 [lb_av] eCW1 ([facility]) Body weight 3640 [oz_av] 3640 [oz_av] PIPER ([facility]) Systolic blood pressure 113 mm[Hg] 113 mm[Hg] A THENA ([facility]) Body mass index (BMI) [Ratio] 37.3 kg/m2 37.3 k g/m2 PIPER ([facility]) Body height 65.5 [in_i] 65.5 [in_i] PIPER ([facility]) Diastolic blood pressure 78 mm[Hg] 78 mm[Hg] PIPER ([facility]) Diastolic blood pressure 74 mm[Hg] 74 mm[Hg] eCW1 ([facility]) Systolic blood pressure 128 mm[Hg] 128 mm[Hg] e CW1 ([facility]) Body mass index (BMI) [Ratio] 39.27 kg/m2 39.27 kg/m2 eCW1 ([facility]) Body height 65 [in_i] 65 [in_i] eCW1 ([facility]) Body weight 107.05 kg 107.05 kg W1 ([facility]) Body weight 236 [lb_av] 236 [lb_av] eCW1 ([facility]) Body height 65.5 [in_i] 65.5 [in_i] PIPRE ([facility]) Body height 65.5 [in_i] 65.5 [in_i] PIPER ([facility]) Body height 65.5 [in_i] 65.5 [in_i] PIPER ([facility]) Body height 65.5 [in_i] 65.5 [in_i] PIPER ([facility]) Body height 65.5 [in_i] 65.5 [in_i] PIPER ([facility]) Body height 65.5 [in_i] 65.5 [in_i] PIPER ([facility]) Body height 65.5 [in_i] 65.5 [in_i] PIPER ([facility]) Body weight 3756.96 [oz_av] 3756.96 [oz_av] ATH RAMIRO ([facility]) Systolic blood pressure 118 mm[Hg] 118 mm[Hg] [facility] Body height 65.5 [in_i] 65.5 [in_i] PIPER ([facility]) Diastolic blood pressure 70 mm[Hg] 70 mm[Hg] PIPER ([facility]) Body weight 3756.96 [oz_av] 3756.96 [oz_av] ATH RAMIRO ([facility]) Systolic blood pressure 118 mm[Hg] 118 mm[Hg] [facility] Body height 65.5 [in_i] 65.5 [in_i] PIPER ([facility]) Diastolic blood pressure 70 mm[Hg] 70 mm[Hg] PIPER ([facility]) Body weight 3756.96 [oz_av] 3756.96 [oz_av] ATH RAMIRO ([facility]) Systolic blood pressure 118 mm[Hg] 118 mm[Hg] A [facility] ([facility]) Body height 65.5 [in_i] 65.5 [in_i] PIPER ([facility]) Diastolic blood pressure 70 mm[Hg] 70 mm[Hg] PIPER ([facility]) Body weight 3756.96 [oz_av] 3756.96 [oz_av] ATH RAMIRO ([facility]) Systolic blood pressure 118 mm[Hg] 118 mm[Hg] [facility] Body height 65.5 [in_i] 65.5 [in_i] PIPER ([facility]) Diastolic blood pressure 70 mm[Hg] 70 mm[Hg] PIPER ([facility]) Body weight 3756.96 [oz_av] 3756.96 [oz_av] ATH RAMIRO ([facility]) Systolic blood pressure 118 mm[Hg] 118 mm[Hg] [facility] Body height 65.5 [in_i] 65.5 [in_i] PIPER ([facility]) Diastolic blood pressure 70 mm[Hg] 70 mm[Hg] PIPER ([facility]) Body weight 3756.96 [oz_av] 3756.96 [oz_av] ATH RAMIRO ([facility]) Systolic blood pressure 118 mm[Hg] 118 mm[Hg] A THENA ([facility]) Body height 65.5 [in_i] 65.5 [in_i] PIPER ([facility]) Diastolic blood pressure 70 mm[Hg] 70 mm[Hg] PIPER ([facility]) Body weight 3756.96 [oz_av] 3756.96 [oz_av] ATH RAMIRO ([facility]) Systolic blood pressure 118 mm[Hg] 118 mm[Hg] A THENA ([facility]) Body height 65.5 [in_i] 65.5 [in_i] PIPER ([facility]) Diastolic blood pressure 70 mm[Hg] 70 mm[Hg] PIPER ([facility]) Body weight 3746.08 [oz_av] 3746.08 [oz_av] ATH RAMIRO ([facility]) Body height 65.5 [in_i] 65.5 [in_i] PIPER ([facility]) Body weight 3746.08 [oz_av] 3746.08 [oz_av] ATH RAMIRO ([facility]) Body height 65.5 [in_i] 65.5 [in_i] PIPER ([facility]) Body weight 3746.08 [oz_av] 3746.08 [oz_av] ATH RAMIRO ([facility]) Body height 65.5 [in_i] 65.5 [in_i] PIPER ([facility]) Body weight 3746.08 [oz_av] 3746.08 [oz_av] ATH RAMIRO ([facility]) Body height 65.5 [in_i] 65.5 [in_i] PIPER ([facility]) Body weight 3746.08 [oz_av] 3746.08 [oz_av] ATH RAMIRO ([facility]) Body height 65.5 [in_i] 65.5 [in_i] PIPER ([facility]) Body weight 3746.08 [oz_av] 3746.08 [oz_av] ATH RAMIRO ([facility]) Body height 65.5 [in_i] 65.5 [in_i] PIPER ([facility]) Body weight 3746.08 [oz_av] 3746.08 [oz_av] ATH RAMIRO ([facility]) Body height 65.5 [in_i] 65.5 [in_i] PIPER ([facility]) Body weight 3776 [oz_av] 3776 [oz_av] PIPER ([facility]) Systolic blood pressure 110 mm[Hg] 110 mm[Hg] A [facility] ([facility]) Body height 65.5 [in_i] 65.5 [in_i] PIPER ([facility]) Diastolic blood pressure 74 mm[Hg] 74 mm[Hg] PIPER ([facility]) Body weight 3776 [oz_av] 3776 [oz_av] PIPER ([facility]) Systolic blood pressure 110 mm[Hg] 110 mm[Hg] A [facility] ([facility]) Body height 65.5 [in_i] 65.5 [in_i] PIPER ([facility]) Diastolic blood pressure 74 mm[Hg] 74 mm[Hg] PIPER ([facility]) Body weight 3776 [oz_av] 3776 [oz_av] PIPER ([facility]) Systolic blood pressure 110 mm[Hg] 110 mm[Hg] [facility] Body height 65.5 [in_i] 65.5 [in_i] PIPER ([facility]) Diastolic blood pressure 74 mm[Hg] 74 mm[Hg] PIPER ([facility]) Body weight 3776 [oz_av] 3776 [oz_av] PIPER ([facility]) Systolic blood pressure 110 mm[Hg] 110 mm[Hg] [facility] Body height 65.5 [in_i] 65.5 [in_i] PIPER ([facility]) Diastolic blood pressure 74 mm[Hg] 74 mm[Hg] PIPER ([facility]) Body weight 3776 [oz_av] 3776 [oz_av] PIPER ([facility]) Systolic blood pressure 110 mm[Hg] 110 mm[Hg] A [facility] ([facility]) Body height 65.5 [in_i] 65.5 [in_i] PIPER ([facility]) Diastolic blood pressure 74 mm[Hg] 74 mm[Hg] PIPER ([facility]) Body weight 3776 [oz_av] 3776 [oz_av] PIPER ([facility]) Systolic blood pressure 110 mm[Hg] 110 mm[Hg] A [facility] ([facility]) Body height 65.5 [in_i] 65.5 [in_i] PIPER ([facility]) Diastolic blood pressure 74 mm[Hg] 74 mm[Hg] PIPER ([facility]) Body weight 3776 [oz_av] 3776 [oz_av] PIPER ([facility]) Systolic blood pressure 110 mm[Hg] 110 mm[Hg] A [facility] ([facility]) Body height 65.5 [in_i] 65.5 [in_i] PIPER ([facility]) Diastolic blood pressure 74 mm[Hg] 74 mm[Hg] PIPER ([facility]) Body mass index (BMI) [Ratio] 41.5 kg/m2 41.5 k g/m2 MEDENT ([facility]) Body height 64 [in_i] 64 [in_i] MEDENT ([facility]) 5'4" Body weight 242.00 [lb_av] 242.00 [lb_av] MEDEN T ([facility], [facility]) Body temperature 98.3 [degF] 98.3 [degF] MEDENT ([facility], [facility]) Oxygen saturation in Arterial blood by Pulse oximetry 98 % 98 % MEDENT ([facility], [facility]) Heart rate 62 /min 62 /min MEDENT ([facility], [facility]) Diastolic blood pressure 77 mm[Hg] 77 mm[Hg] MEDENT ([facility]) Systolic blood pressure 112 mm[Hg] 112 mm[Hg] M EDENT ([facility]) Body weight 3810.08 [oz_av] 3810.08 [oz_av] ATH RAMIRO ([facility]) Systolic blood pressure 107 mm[Hg] 107 mm[Hg] A [facility] ([facility]) Body height 65.5 [in_i] 65.5 [in_i] PIPER ([facility]) Diastolic blood pressure 72 mm[Hg] 72 mm[Hg] PIPER ([facility]) Body weight 3810.08 [oz_av] 3810.08 [oz_av] ATH RAMIRO ([facility]) Systolic blood pressure 107 mm[Hg] 107 mm[Hg] A [facility] ([facility]) Body height 65.5 [in_i] 65.5 [in_i] PIPER ([facility]) Diastolic blood pressure 72 mm[Hg] 72 mm[Hg] PIPER ([facility]) Body weight 3810.08 [oz_av] 3810.08 [oz_av] ATH RAMIRO ([facility]) Systolic blood pressure 107 mm[Hg] 107 mm[Hg] A [facility] ([facility]) Body height 65.5 [in_i] 65.5 [in_i] PIPER ([facility]) Diastolic blood pressure 72 mm[Hg] 72 mm[Hg] PIPER ([facility]) Body weight 3810.08 [oz_av] 3810.08 [oz_av] ATH RAMIRO ([facility]) Systolic blood pressure 107 mm[Hg] 107 mm[Hg] [facility] Body height 65.5 [in_i] 65.5 [in_i] PIPER ([facility]) Diastolic blood pressure 72 mm[Hg] 72 mm[Hg] PIPER ([facility]) Body weight 3810.08 [oz_av] 3810.08 [oz_av] ATH RAMIRO ([facility]) Systolic blood pressure 107 mm[Hg] 107 mm[Hg] [facility] Body height 65.5 [in_i] 65.5 [in_i] PIPER ([facility]) Diastolic blood pressure 72 mm[Hg] 72 mm[Hg] PIPER ([facility]) Body weight 3810.08 [oz_av] 3810.08 [oz_av] ATH RAMIRO ([facility]) Systolic blood pressure 107 mm[Hg] 107 mm[Hg] A THENA ([facility]) Body height 65.5 [in_i] 65.5 [in_i] PIPER ([facility]) Diastolic blood pressure 72 mm[Hg] 72 mm[Hg] PIPER ([facility]) Body weight 3810.08 [oz_av] 3810.08 [oz_av] ATH RAMIRO ([facility]) Systolic blood pressure 107 mm[Hg] 107 mm[Hg] A THENA ([facility]) Body height 65.5 [in_i] 65.5 [in_i] PIPER ([facility]) Diastolic blood pressure 72 mm[Hg] 72 mm[Hg] PIPER ([facility]) Body weight 3872 [oz_av] 3872 [oz_av] PIPER ([facility]) Body height 65.5 [in_i] 65.5 [in_i] PIPER ([facility]) Body weight 3872 [oz_av] 3872 [oz_av] PIPER ([facility]) Body height 65.5 [in_i] 65.5 [in_i] PIPER ([facility]) Body weight 3872 [oz_av] 3872 [oz_av] PIPER ([facility]) Body height 65.5 [in_i] 65.5 [in_i] PIPER ([facility]) Body weight 3872 [oz_av] 3872 [oz_av] PIPER ([facility]) Body height 65.5 [in_i] 65.5 [in_i] PIPER ([facility]) Body weight 3872 [oz_av] 3872 [oz_av] PIPER ([facility]) Body height 65.5 [in_i] 65.5 [in_i] PIPER ([facility]) Body weight 3872 [oz_av] 3872 [oz_av] PIPER ([facility]) Body height 65.5 [in_i] 65.5 [in_i] PIPER ([facility]) Body weight 3872 [oz_av] 3872 [oz_av] PIPER ([facility]) Body height 65.5 [in_i] 65.5 [in_i] PIPER ([facility]) Body weight 3858.08 [oz_av] 3858.08 [oz_av] ATH RAMIRO ([facility]) Body height 65.5 [in_i] 65.5 [in_i] PIPER ([facility]) Body weight 3858.08 [oz_av] 3858.08 [oz_av] ATH RAMIRO ([facility]) Body height 65.5 [in_i] 65.5 [in_i] PIPER ([facility]) Body weight 3858.08 [oz_av] 3858.08 [oz_av] ATH RAMIRO ([facility]) Body height 65.5 [in_i] 65.5 [in_i] PIPER ([facility]) Body weight 3858.08 [oz_av] 3858.08 [oz_av] ATH RAMIRO ([facility]) Body height 65.5 [in_i] 65.5 [in_i] PIPER ([facility]) Body weight 3858.08 [oz_av] 3858.08 [oz_av] ATH RAMIRO ([facility]) Body height 65.5 [in_i] 65.5 [in_i] PIPER ([facility]) Body weight 3858.08 [oz_av] 3858.08 [oz_av] ATH RAMIRO ([facility]) Body height 65.5 [in_i] 65.5 [in_i] PIPER ([facility]) Body weight 3858.08 [oz_av] 3858.08 [oz_av] ATH RAMIRO ([facility]) Body height 65.5 [in_i] 65.5 [in_i] PIPER ([facility]) Body weight 3868.8 [oz_av] 3868.8 [oz_av] ATHEN A ([facility]) Systolic blood pressure 112 mm[Hg] 112 mm[Hg] [facility] Body height 65.5 [in_i] 65.5 [in_i] PIPER ([facility]) Diastolic blood pressure 72 mm[Hg] 72 mm[Hg] PIPER ([facility]) Body weight 3868.8 [oz_av] 3868.8 [oz_av] ATHEN A ([facility]) Systolic blood pressure 112 mm[Hg] 112 mm[Hg] A [facility] ([facility]) Body height 65.5 [in_i] 65.5 [in_i] PIPER ([facility]) Diastolic blood pressure 72 mm[Hg] 72 mm[Hg] PIPER ([facility]) Body weight 3868.8 [oz_av] 3868.8 [oz_av] ATHEN A ([facility]) Systolic blood pressure 112 mm[Hg] 112 mm[Hg] A [facility] ([facility]) Body height 65.5 [in_i] 65.5 [in_i] PIPER ([facility]) Diastolic blood pressure 72 mm[Hg] 72 mm[Hg] PIPER ([facility]) Body weight 3868.8 [oz_av] 3868.8 [oz_av] ATHEN A ([facility]) Systolic blood pressure 112 mm[Hg] 112 mm[Hg] [facility] Body height 65.5 [in_i] 65.5 [in_i] PIPER ([facility]) Diastolic blood pressure 72 mm[Hg] 72 mm[Hg] PIPER ([facility]) Body weight 3868.8 [oz_av] 3868.8 [oz_av] ATHEN A ([facility]) Systolic blood pressure 112 mm[Hg] 112 mm[Hg] A THENA ([facility]) Body height 65.5 [in_i] 65.5 [in_i] PIPER ([facility]) Diastolic blood pressure 72 mm[Hg] 72 mm[Hg] PIPER ([facility]) Body weight 3868.8 [oz_av] 3868.8 [oz_av] ATHEN A ([facility]) Systolic blood pressure 112 mm[Hg] 112 mm[Hg] A THENA ([facility]) Body height 65.5 [in_i] 65.5 [in_i] PIPER ([facility]) Diastolic blood pressure 72 mm[Hg] 72 mm[Hg] PIPER ([facility]) Body weight 3868.8 [oz_av] 3868.8 [oz_av] ATHEN A ([facility]) Systolic blood pressure 112 mm[Hg] 112 mm[Hg] A THENA ([facility]) Body height 65.5 [in_i] 65.5 [in_i] PIPER ([facility]) Diastolic blood pressure 72 mm[Hg] 72 mm[Hg] PIPER ([facility]) Body weight 3856 [oz_av] 3856 [oz_av] PIPER ([facility]) Body height 65.5 [in_i] 65.5 [in_i] PIPER ([facility]) Body weight 3856 [oz_av] 3856 [oz_av] PIPER ([facility]) Body height 65.5 [in_i] 65.5 [in_i] PIPER ([facility]) Body weight 3856 [oz_av] 3856 [oz_av] PIPER ([facility]) Body height 65.5 [in_i] 65.5 [in_i] PIPER ([facility]) Body weight 3856 [oz_av] 3856 [oz_av] PIPER ([facility]) Body height 65.5 [in_i] 65.5 [in_i] PIPER ([facility]) Body weight 3856 [oz_av] 3856 [oz_av] PIPER ([facility]) Body height 65.5 [in_i] 65.5 [in_i] PIPER ([facility]) Body weight 3856 [oz_av] 3856 [oz_av] PIPER ([facility]) Body height 65.5 [in_i] 65.5 [in_i] PIPER ([facility]) Body weight 3856 [oz_av] 3856 [oz_av] PIPER ([facility]) Body height 65.5 [in_i] 65.5 [in_i] PIPER ([facility]) Diastolic blood pressure 86 mm[Hg] 86 mm[Hg] eCW1 ([facility]) Systolic blood pressure 134 mm[Hg] 134 mm[Hg] e CW1 ([facility]) Body mass index (BMI) [Ratio] 37.87 kg/m2 37.87 kg/m2 eCW1 ([facility]) Body height 65 [in_us] 65 [in_us] eCW1 ([facility]) Body weight Measured 227.6 [lb_av] 227.6 [lb_av ] eCW1 ([facility]) Patient Treatment Plan of Care Planned Activity Planned Date Details Description Data Source (s) Clobetasol Propionate 0.5 MG/ML Topical Cream 06/22/2020 12:00:00 A M EST eCW1 ([facility]) Clobetasol Propionate 0.5 MG/ML Topical Cream 06/22/2020 12:00:00 A M EST eCW1 ([facility]) Kassidy 0.35 MG 06/29/2019 12:00:00 AM EST eCW1 ([facility]) Perphenazine 2 MG Oral Tablet PIPER ([facility]) NITROFURANTOIN, MACROCRYSTALS 25 MG / Ni trofurantoin, Monohydrate 75 MG Oral Capsule PIPER ([facility]) montelukast 10 MG Oral Tablet PIPER ([facility]) gabapentin 300 MG Oral Capsule PIPER ([facility]) Fluoxetine 20 MG Oral Capsule PIPER ([facility]) Deblitane 0.35 mg tablet ATH RAMIRO ([facility]) BD Luer-Kiera Syringe 3 mL 25 x 5/8" USE T O INJECT MEDICATION INTRAMUSCULARLY ONCE WEEKLY PIPER ([facility]) Azithromycin 250 MG Oral Tablet PIPER ([facility]) NITROFURANTOIN, MACROCRYSTALS 25 MG / Ni trofurantoin, Monohydrate 75 MG Oral Capsule PIPER ([facility]) Azithromycin 250 MG Oral Tablet PIPER ([facility]) NITROFURANTOIN, MACROCRYSTALS 25 MG / Ni trofurantoin, Monohydrate 75 MG Oral Capsule PIPER ([facility]) Azithromycin 250 MG Oral Tablet PIPER ([facility]) NITROFURANTOIN, MACROCRYSTALS 25 MG / Ni trofurantoin, Monohydrate 75 MG Oral Capsule PIPER ([facility]) Azithromycin 250 MG Oral Tablet PIPER ([facility]) NITROFURANTOIN, MACROCRYSTALS 25 MG / Ni trofurantoin, Monohydrate 75 MG Oral Capsule PIPER ([facility]) Azithromycin 250 MG Oral Tablet PIPER ([facility]) NITROFURANTOIN, MACROCRYSTALS 25 MG / Ni trofurantoin, Monohydrate 75 MG Oral Capsule PIPER ([facility]) Azithromycin 250 MG Oral Tablet PIPER ([facility]) NITROFURANTOIN, MACROCRYSTALS 25 MG / Ni trofurantoin, Monohydrate 75 MG Oral Capsule PIPER ([facility]) Azithromycin 250 MG Oral Tablet PIPER ([facility])
--- OUTSIDE RECORDS SUMMARY | 2020-07-27 10:28 | CCD ---
Author Organization Unknown Address [address] [place] [address] Phone [phone] Care Team Providers Care Revenue Investigator Name Role Phone Dilcia Dunn Unavailable Unavailable Allergies Code Code System Name Reaction Severity Status Onset NKDA Notes: ANNIA - Reaction: anaplyaxis Medications Name Status Start Date Stop Date azithromycin 250 mg tablet Completed 05/11 Deblitane 0.35 mg tablet Active Not yadiel ilable fluoxetine 20 mg capsule Active Not yadiel ilable gabapentin 300 mg capsule Active Not av ailable medroxyprogesterone 150 mg/mL intramuscular suspension Active Not available montelukast 10 mg tablet Active Not yadiel [...] wisdom teeth, , , Results Lab Results None recorded. Past Encounters 05/11/2020 Hormone Replacement Therapy; Pruritus of Vagina Dilcia Dunn, SHIRA-BC: [address] [place] [address], Ph. Social History Tobacco Smoking Status Heavy [...]
--- OUTSIDE RECORDS SUMMARY | 2020-07-27 10:28 | CCD ---
Author Organization Unknown Address [address] [place] [address] Phone [phone] Care Team Providers Care Community Dietitian Name Role Phone Dilcia Dunn Unavailable Unavailable [...] Result Interpretation Description Value Range Status Address 05/31/2020 HbA1C (Hemoglobin a1C), Blood No observat ion recorded. [facility]: [address] [place] [address] 05/17/2020 Test, Urine Urine Hcg negative [facility]: [address] [place] [address] Past Encounters 06/06/2020 Moderate Recurrent Major Depression; Chronic Post-traumatic Stress Disorder; Generalized Anxiety Disorder; Gender Dysphoria in Adolescence and Adulthood Darling De La Garzachanelle, EMPLOYMENT RECRUITER-R: [address] [facility], [facility] [address], [place] [address], Ph. 05/23/2020 Gender Dysphoria in Adolescence and Adulthood; Moderate Recurrent Major Depression; Generalized Anxiety Disorder Darling De La GarzaSEJAL rocaW-R: [address], [facility] [address], [place] [address], Ph. 05/17/2020 Contraception Using Injectable Contraceptive Medication; Contraception Care Management AJAY ValdesBC: [address] [place] [phone], Ph. 05/11/2020 Hormone Replacement Therapy; Pruritus of Vagina AJAY ValdesBC: [address] [place] [phone], Ph. Social History Tobacco Smoking Status Heavy [...]
--- OUTSIDE RECORDS SUMMARY | 2020-07-27 10:28 | CCD ---
Author Organization Unknown Address [address] [place] [address] Phone [phone] Care Team Providers Care Derrick Operator Name Role Phone Dilcia Dunn Unavailable [...] Results Lab Results None recorded. Past Encounters 05/17/2020 Contraception Using Injectable Contraceptive Medication; Contraception Care Management AJAY ValdesBC: [address] [place] [address], Ph. 05/11/2020 Hormone Replacement Therapy; Pruritus of Vagina AJAY ValdesBC: [address] [place] [address], Ph. Social History Tobacco Smoking Status Heavy [...]
[2020-07-27] MEDS ORDERED: ROCURONIUM BROMIDE 50 MG/5 ML VIAL As Ordered ONE ×2 (10:43→13:04)
[2020-07-27] MEDS ORDERED: propofoL 200 MG/20 ML VIAL As Ordered ONE (10:43)
[2020-07-27] MEDS ORDERED: LIDOCAINE 2% 100MG/5ML SDV (FOR ANES.) As Ordered ONE (10:43)
[2020-07-27] MEDS ORDERED: MIDAZOLAM INJ 2MG/2ML VIAL (J2250 PER 1MG) As Ordered ONE (10:44)
[2020-07-27] MEDS ORDERED: fentaNYL 250 MCG/5 ML INJECTION (J3010) As Ordered ONE (10:44)
[2020-07-27 11:03] LABS: HEMATOCRIT 44.6 % (36.0-47.0); HEMOGLOBIN 14.7 g/dl (12.0-15.5); MEAN CORPUSCULAR HEMOGLOBIN 30.6 pg (27.0-33.0); MEAN CORPUSCULAR VOLUME 92.9 fl (80.0-96.0); PLATELET COUNT, AUTOMATED 240 10^3/uL (150-450); WHITE BLOOD COUNT 5.5 10^3/uL (4.0-10.0)
[2020-07-27 11:31] LABS: HCG, SERUM QUALITATIVE NEGATIVE (NEGATIVE)
[2020-07-27] MEDS ORDERED: BUPIVACAINE HCL 0.25% 30ML VIAL As Ordered ONE (12:05)
[2020-07-27] MEDS ORDERED: METHYLENE BLUE 0.5% (5MG/ML) 10 ML AMP (PROVAYBLUE) As Ordered ONE (12:05)
[2020-07-27] MEDS ORDERED: dexameTHASONE 4 MG/ML 1ML VIAL (J1100 PER 1MG) As Ordered ONE ×2 (12:49→13:27)
[2020-07-27] MEDS ORDERED: HYDROmorphone HCL 2 MG/ML 1ML VIAL (J1170) As Ordered ONE (13:12)
[2020-07-27] MEDS ORDERED: METOCLOPRAMIDE INJ 10MG/2ML VIAL (J2765 PER 1) As Ordered ONE (13:27)
[2020-07-27] MEDS ORDERED: ONDANSETRON 4MG/2ML VIAL As Ordered ONE (13:27)
[2020-07-27] MEDS ORDERED: KETOROLAC 60MG 2ML VIAL As Ordered ONE (13:27)
[2020-07-27] MEDS ORDERED: SUGAMMADEX SODIUM 500 MG/5 ML VIAL (BRIDION) As Ordered ONE (13:29)
[2020-07-27] MEDS ORDERED: ACETAMINOPHEN 1000MG 100ML IV BTL (OFIRMEV) (J0131 PER 10MG) As Ordered ONE (13:46)
[2020-07-27] MEDS ORDERED: fentaNYL 100 MCG/2 ML INJECTION (J3010) As Ordered ONE (14:01)
[2020-07-27] MEDS ORDERED: LACRILUBE (AKWA TEARS) OPHTH OINT 3.5 GM As Ordered ONE (14:22)
--- NOTE | 2020-07-27 14:31 | ROOPDOC ---
[facility] Report Of Operation Report of Operation DATE OF PROCEDURE: 07/27/20 PREPROCEDURE DIAGNOSES: Abnormal uterine bleeding POSTPROCEDURE DIAGNOSES: Same. PROCEDURE: Robotic-assisted total laparoscopic hysterectomy, bilateral salpingectomy, cystoscopy SURGEON: Tao Oneill D.O. FACOG APPLICATION SYSTEMS ENGINEER: Tsering Ceja ANESTHESIA: General endotracheal. ESTIMATED BLOOD LOSS: Approximately 20 mL. FLUIDS REPLACED: 1200 mL LR URINE OUTPUT: 50 mL COMPLICATIONS: None. FINDINGS: Normal-appearing ovaries bilaterally. Uterus was approximately 8 centimeters in greatest dimension. Cystoscopy: Bilateral ureteral orifice efflux, no bladder injury/suture material. PREOPERATIVE ANTIBIOTIC PROPHYLAXIS: Ancef 2 g IV 1. SPECIMEN(S): Uterus w/ cervix, bilateral fallopian tubes DESCRIPTION OF PROCEDURE: The patient was counseled, consented on the respective benefits, indications, alternatives of procedure. Informed consent was obtained. She was taken to the operating room with an IV running. She was placed on the operating table in dorsal supine position. Gen. anesthesia was administered and the airway was secured without any difficulty. She was placed in the low lithotomy position. . She was prepared and draped in the normal sterile fashion. A time out was performed per protocol. A Moore catheter was placed under sterile conditions. A sterile speculum was placed resulting in good visualization of the cervix. A single-tooth tenaculum was used to grasp the anterior lip cervix. The cervix was sequentially dilated with Ubaldo dilators. A V-Care uterine manipulator was placed without any difficulty. The single-tooth tenaculum was removed, as well as the speculum. A sterile glove switch was performed. Attention was turned to the abdomen. A 2mm incision was made in the umbilicus, and through this incision a Veress needle was inserted into the intraperitoneal cavity. Intraperitoneal placement was confirmed with ease of flow of normal saline, positive drop test, no return on aspiration, and an opening pressure of less than 10 mmHg upon initial insufflation. The abdomen was insufflated with 2 L of gas. The Veress needle was removed. A supraumbilical 8 mm incision was made. Through this incision, the robotic trochar/cannula was inserted into the intraperitoneal cavity under direct visualization. No incidental bleeding nor injury was noted. Patient was placed in 30 Trendelenburg. The right and left trocars/cannulas were placed on both the right and left side through 8 mm incisions, guided by laparoscopic visualization. No incidental bleeding nor injury was noted. The robot was docked in typical fashion. The instruments were inserted, guided by laparoscopic visualization. My attention was turned to the robotic console. Using the vessel sealer device, the right and left fallopian tubes were amputated. The fallopian tubes were brought through the assist-port cannula without any difficulty. The right utero-ovarian ligament and right round ligament were sequentially clamped, coagulated and transected with the vessel sealer device. The vesicouterine peritoneum was dissected with the vessel sealer device to create the bladder flap, thus mobilizing the lower uterine segment and cervix off of the bladder. The right uterine vasculature was sequentially clamped, coagulated and transected above the colpotomy cup. The left utero-ovarian ligament and left round ligament were sequentially clamped, coagulated and transected with the vessel sealer device. The remainder of the bladder flap was dissected using the vessel sealer device and blunt dissection. The left uterine vasculature was sequentially clamped, coagulated and transected above the colpotomy cup. The outline of the entire V- care colpotomy cup was able to be delineated. Excellent blanching of the uterus was noted. A circumferential colpotomy was performed using the da Aleksandar monopolar nette, following the contour of the cup. The amputated cervix and uterus were brought through the colpotomy into and out of the vagina, intact as one unit. The colpotomy was closed with the V-lock barbed suture in running fashion, thus creating the vaginal cuff. Excellent he mostasis was noted throughout the steps above. Danny was placed over the vaginal cuff to ensure hemostasis. The instruments were removed from the abdomen and the robot was un-docked. The gas was released from the abdomen and the patient was taken out of Trendelenburg. I re-scrubbed, and attention was turned to the pelvis. The Moore catheter was removed. The cystoscope was placed transurethrally into the bladder and normal saline was instilled. No bladder injury/suture material was noted. IV methyle ne blue had been administered by anesthesia and bilateral UO efflux was confirmed. The fluid was drained out of the bladder through the cystoscope device, then the cystoscope was removed. The vagina was copiously irrigated. A sterile digital vaginal exam revealed no significant bleeding and an intact vaginal cuff. A sterile glove switch was performed. The da Aleksandar cannulas were removed. The skin incisions were closed with 4-0 Monocryl in subcuticular fashion. Sponge, needle and instrument counts were correct per protocol. The patient tolerated the entire procedure very well. She was transferred to the PACU in good and stable condition. DO KENNY Mora JONATHAN R. DO Jul 27, 2020 14:31
[2020-07-27] MEDS ORDERED: OXYC1TAB23 PO (14:32)
[2020-07-27] MEDS ORDERED: IBUP80TA PO (14:44)
[2020-07-27] MEDS ORDERED: COLA100C5 PO (14:45)
[2020-07-27] MEDS ORDERED: oxyCODONE 5MG TAB PO PRN (15:00)
[2020-07-27] MEDS ORDERED: fentaNYL 100 MCG/2 ML INJECTION (J3010) IV PRN (15:00)
[2020-07-27] MEDS ORDERED: HYDROMORPHONE HCL 0.5 MG/ 0.5 ML SYRINGE (J1170 PER 1) IV PRN (15:00)
[2020-07-27] MEDS ORDERED: ONDANSETRON 4MG/2ML VIAL IV PRN ×2 (15:00→16:00)
[2020-07-27] MEDS ORDERED: METOCLOPRAMIDE INJ 10MG/2ML VIAL (J2765 PER 1) IV PRN (15:00)
[2020-07-27] MEDS ORDERED: LR 1,000 ML IV SCH ×2 (15:00→16:00)
[2020-07-27 15:30] VITALS: BP 129/71
[2020-07-27 16:00] VITALS: BP 124/72
[2020-07-27] MEDS ORDERED: diphenhydrAMINE 50MG/ML VIAL (J1200) IV PRN (16:00)
[2020-07-27] MEDS ORDERED: PERCOCET 5MG/325MG TAB PO PRN ×2 (16:00)
[2020-07-27 16:30] VITALS: BP 115/58
[2020-07-27 17:30] VITALS: BP 122/72
[2020-07-27] MEDS ORDERED: KETOROLAC 30 MG/ML 1ML VIAL IV PRN (20:00)
[2020-07-27] MEDS ORDERED: LEVO112T2 PO (20:31)
[2020-07-27 21:37] VITALS: BP 118/64
[2020-07-28] MEDS ORDERED: LEVOTHYROXINE 112MCG TABLET (0.112MG) PO SCH (06:00)
== END 2020-07-27 21:37 | disposition home or self-care (01) ==
LOC: M SDC 10:23 → M MSPAV 15:31 → M SDC 21:37
PROVIDERS: ATTEND Obstetrics & Gynecology
DX: N93.9 Abnormal uterine and vaginal bleeding, unspecified (principal); Z91.040 Latex allergy status; Z91.010 Allergy to peanuts; E03.9 Hypothyroidism, unspecified; F41.9 Anxiety disorder, unspecified; G43.909 Migraine, unspecified, not intractable, without status migrainosus; F17.218 Nicotine dependence, cigarettes, with other nicotine-induced disorders
CPT/HCPCS: 36415; 58571; 84443; 84703; 85027; 86850; 86900; 86901; 88307; J0131; J0690; J1100; J1170; J1885; J2250; J2405; J2765; J3010; Q9968; S2900

== ENCOUNTER → 2020-11-04 | Outpatient (REF) ==
[~2020-11-04] MED LIST changes: +COLA100C5 PO; +IBUP80TA PO; -LIDOCAINE 1% MDV 20ML VIAL SQ PRN; -LR 1,000 ML IV ONE; +OXYC1TAB23 PO; -ceFAZolin SOD 2 GM in IV 1 EA IV ONE
== END ==
LOC: M LABSMTC 13:30
PROVIDERS: ATTEND Pediatrics
DX: Z11.52 Encounter for screening for COVID-19 (principal)

== ENCOUNTER → 2021-05-08 | Outpatient (REF) | LOC: M EMP 12:03 | PROVIDERS: ATTEND Family Medicine | DX: Z11.52 Encounter for screening for COVID-19 (principal) ==

== ENCOUNTER → 2021-05-11 | Outpatient (REF) | LOC: M LABSMTC 11:55 | PROVIDERS: ATTEND Family Medicine | DX: Z11.52 Encounter for screening for COVID-19 (principal) ==

== ENCOUNTER → 2021-09-02 | Outpatient (REF) | payer OTHER ==
[2021-09-02 20:20] LABS: GC DNA AMPLIFICATION NEGATIVE (NEGATIVE)
== END ==
LOC: M WUC 18:27
DX: R10.30 Lower abdominal pain, unspecified (principal)

== ENCOUNTER → 2021-09-10 | Outpatient (REF) | payer OTHER | LOC: M LAB REF 16:48 | PROVIDERS: ATTEND Physician Assistant | DX: J02.9 Acute pharyngitis, unspecified (principal) ==